=== PATIENT | male | born 1950 | race Caucasian/White ===

== ENCOUNTER 2023-04-19 16:35 | Emergency (ER) | payer OTHER ==
--- OUTSIDE RECORDS SUMMARY | 2023-04-19 16:55 | XMS REPORT | Continuity of Care Document ---
:1950 Author Organization [facility] t Address [address] [place] [address] Care Team Providers Name Role Phone Jazmín Calle DOosh Primary Care Physician [phone] DANILO SIDHU Attending Clinician Unavailable Rafael Gutierrez MA Attending Clinician Unavailable Kalpana HOBSON, Allan Burger Attending Clinician Marcela Marcus Attending Clinician Libra Bhakta MD Attending Clinician Clemente Shaffer MD Attending Clinician John Claros MA Attending Clinician Unavailable Gwen Miller Attending Clinician Unavailable Basia HOBSON, [facility] Attending Clinician Naldo Hidalgo MD Attending Clinician AILYN HIDALGO THE Attending Clinician Unavailable Kim Leyva MD Attending Clinician Cristi Castano MD Attending Clinician Sedrick Trivedi MD Attending Clinician Lori HOBSON, Baldev Attending Clinician Cecelia HOBSON, Kiley Attending Clinician Vilma HOBSON, Gina Truong Attending Clinician Lorri HOBSON, Michael Meyers Attending Clinician Leo HOBSON, Jona Robertson Attending Clinician [phone] Margarita HOBSON, Ramirez Terry Attending Clinician [phone] Phil HOBSON, Sayra Freire Attending Clinician Chad Blackmon Attending Clinician ELAINE LORENZO Attending Clinician Unavailable RUFINO MALIK Attending Clinician Unavailable Den Mello Attending Clinician Unavailable ARNOLD BARROW Attending Clinician Unavailable Valdemar HOBSON, James Johnson Attending Clinician Soto Kim DO Attending Clinician Mike HOBSON, James Delarosa Attending Clinician MARCELA SENA APRN Attending Clinician Unavailable CLEMENTE SHAFFER M.D. Attending Clinician Unavailable LYNNETTE GOMEZ Attending Clinician Unavailable PRATEEK RAO Attending Clinician Unavailable SLADE MENJIVAR M.D. Attending Clinician Unavailable PAUL GREWAL M.D. Attending Clinician Unavailable JONA LANDRY Admitting Clinician Unavailable LIBRA BHAKTA Admitting Clinician Unavailable MD MARCELA MARCUS Admitting Clinician Unavailable NALDO HIDALGO Admitting Clinician Unavailable KIM LEYVA Admitting Clinician Unavailable MD BALDEV KRUSE Admitting Clinician Unavailable GINA ESPARZA Admitting Clinician Unavailable CLEMENTE SHAFFER Admitting Clinician Unavailable MD SAYRA VILLARREAL Admitting Clinician Unavailable Den Mello Admitting Clinician Unavailable SOTO KIM Admitting Clinician Unavailable LYNNETTE GOMEZ Admitting Clinician Unavailable Payers Payer Name Policy Type Policy Number Effective Date Expiration Date S ource Problems Condition Condition Condition Status Onset Resolution Last Treating Co mments Source Name Details Category Date Date Treatment Clinician Date Anxiety Anxiety Disease Active Methodi 04-02 st 00:00: Hospita 00 l Class 1 Class 1 Disease Active Methodi obesity obesity 04-02 00:00: Hospita 00 l Decreased Decreased Disease Active Met hodi lipoprotei lipoprotei 04-02 n n 00:00: Hospita measuremen measuremen 00 l t t Hypotensio Hypotensio Disease Active M ethodi n n 04-02 st 00:00: Hospita 00 l Nonalcohol Nonalcohol Disease Active M ethodi ic fatty ic fatty 04-02 liver liver 00:00: Hospita 00 l Acute and Acute and Disease Active Met hodi subacute subacute 04-02 hepatic hepatic 00:00: Hospita failure failure 00 l without without coma coma Osteoarthr Osteoarthr Disease Active M ethodi itis of itis of 04-02 left knee left knee 00:00: Hosp layla 00 l Senile Senile Disease Active Methodi angioma angioma 04-02 00:00: Hospita 00 l Senile Senile Disease Active Methodi hyperkerat hyperkerat 04-02 osis osis 00:00: Hospita 00 l Primary Primary Disease Active Methodi osteoarthr osteoarthr 04-02 itis of itis of 00:00: Hospita both knees both knees 00 l Osteoarthr Osteoarthr Disease Active M ethodi itis itis 04-02 00:00: Hospita 00 l History of History of Disease Active M ethodi total knee total knee 04-02 replacemen replacemen 00:00: Ho spita t t 00 l Ascites Ascites Disease Active Methodi 03-29 st 00:00: Hospita 00 l Bilateral Bilateral Disease Active Met hodi lower lower 03-22 extremity extremity 00:00: Hosp layla edema edema 00 l Dyspnea on Dyspnea on Disease Active M ethodi exertion exertion 03-22 st 00:00: Hospita 00 l Encephalop Encephalop Disease Active M ethodi athy athy 03-10 st 00:00: Hospita 00 l Hypoalbumi Hypoalbumi Disease Active M ethodi nemia nemia 3-27 st 00:00: Hospita 00 l Venous Venous Disease Active Methodi insufficie insufficie 2-10 st ncy ncy 00:00: Hospita 00 l Infection Infection Disease Active Met hodi of total of total 1-10 st right knee right knee 00:00: Ho spita replacemen replacemen 00 l t t Esophageal Esophageal Disease Active 2021-11 M ethodi varices varices 0-17 st 00:00: Hospita 00 l Hyperammon Hyperammon Disease Active 2021-11 M ethodi emia emia 0-17 st 00:00: Hospita 00 l Hypothyroi Hypothyroi Disease Active 2021-11 M ethodi dism dism 0-17 st 00:00: Hospita 00 l Jaundice Jaundice Disease Active 2021-11 Metho di 0-17 st 00:00: Hospita 00 l Liver Liver Disease Active 2021-11 Methodi cirrhosis cirrhosis 0-17 st secondary secondary 00:00: Hosp layla to GREGORY to GREGORY 00 l Confusion Confusion Disease Active 2021-11 Met hodi 0-17 st 00:00: Hospita 00 l Urinary Urinary Disease Active Methodi tract tract 9-19 st infection infection 00:00: Hosp layla without without 00 l hematuria, hematuria, site site unspecifie unspecifie d d Prosthetic Prosthetic Disease Active M ethodi joint joint 6-28 st infection, infection, 00:00: Ho spita sequela sequela 00 l Prosthetic Prosthetic Disease Active M ethodi joint joint 6-27 st infection infection 00:00: Hosp layla 00 l Infection Infection Disease Active Met hodi of right of right 6-25 st knee knee 00:00: Hospita 00 l Confusion Confusion Disease Active Met hodi 6-14 st 00:00: Hospita 00 l Infection Infection Disease Active Met hodi and and 6-02 st inflammato inflammato 00:00: Ho spita ry ry 00 l reaction reaction due to due to internal internal right knee right knee prosthesis prosthesis , , subsequent subsequent encounter encounter OTHER OTHER Diagnosis Active 2022-04-20 Mem oria Active 04-20 09:49:00 l 04/20/2022 00:00: Hunter [place] LIVER LIVER Diagnosis Active 2022-04-16 Mem oria CIRRHOSIS CIRRHOSIS 04-08 10:58:00 l SECOND SECOND 00:00: David GREGORY - GREGORY - 00 K75.81 / D K75.81 / D Active 04/08/2022 [place] ALTERED ALTERED Diagnosis Active 2022-02-24 Memoria MENTAL MENTAL 3-27 00:54:00 l STATUS STATUS 00:00: David Active 00 02/15/2022 [facility], [place] Acute Acute Disease Active 2020-11 Methodi hepatic hepatic - st encephalop encephalop 00:00: Ho spita athy athy 00 l ACUTE ACUTE Diagnosis Active 2021-08-21 Mem oria HEPATIC HEPATIC 08-20 12:34:00 l ENCEPHALOP ENCEPHALOP 07:00: He rmann ATHY ATHY 00 Active 08/20/2021 [facility] Hepatic Hepatic Disease Active Methodi encephalop encephalop 08-20 st athy athy 00:00: Hospita 00 l K76.0 K76.0 Diagnosis Active 2019-112020-12-13 Mem oria Active 12-23 15:18:00 l 10/22/2020 00:00: Hunter martinez [place] K76.0 - K76.0 - Diagnosis Active 2019-112020-10-23 Memoria FATTY FATTY 12-16 07:35:00 l (CHANGE (CHANGE 00:01: David OF) LIVER, OF) LIVER, 00 NOT E G NOT E G Active 10/16/2020 [facility] [place] S/P S/P Disease Active 2019-11 Methodi revision revision -20 st of total of total 00:00: Hospit a knee, knee, 00 l right right DEGENERATI Diagnosis Active 2020-01-09 Memoria VE DEGENERATI 12-20 08:15:00 l ARTHRITIS, VE 00:00: Hunter martinez LEFT KNEE ARTHRITIS, 00 LEFT KNEE Active 12/20/2019 [facility] David DEGENERATI DEGENERAT Diagnosis Active 2018-112019-10-27 Memoria VE YONY 0- 22:27:00 l ARTHRITIS, ARTHRITIS, 00:00: He rmjenniffer RIGHT KNEE RIGHT KNEE 00 Active 09/21/2019 [facility] K72.90 K72.90 Diagnosis Active 2018-112019-09-21 Fl moria Active 10:54:00 l 09/18/2019 00:00: Hunter martinez [place] K72.90 - K72.90 - Diagnosis Active 2018-112020-01-05 Memoria HEPATIC HEPATIC 0- 10:35:00 l FAILURE, FAILURE, 00:01: Hunter martinez UNSPECIFIE UNSPECIFIE 00 D W D W Active 09/15/2019 [facility] [place] History of History Problem Active 2018-112019-11-06 Memoria urinary of urinary 0 23:59:39 l tract tract 00:00: David infection infection 00 (situation (situation ) ) Active 09/12/2019 Problem 11/06/2019 [facility] Hepatic Hepatic Disease Active 2018-[address] athy athy 00:00: Hospita 00 l Acute Acute Disease Active Methodi nonintract nonintract 07-23 able able 00:00: Hospita headache headache 00 l Sepsis Sepsis Disease Active 2017-[address] 00:00: Hospita 00 l Altered Altered Disease Active Methodi mental mental 08-21 status status 00:00: Hospita 00 l Diarrhea Diarrhea Disease Active Metho di 05-25 st 00:00: Hospita 00 l Hypogonadi Hypogonadi Disease Active 2016-11 M ethodi sm sm 12-17 st 00:00: Hospita 00 l Bilateral Bilateral Disease Active Met hodi primary primary 07-30 osteoarthr osteoarthr 00:00: Ho spita itis of itis of 00 l knee knee GERD GERD Disease Active Methodi (gastroeso (gastroeso 07-30 phageal phageal 00:00: Hospita reflux reflux 00 l disease) disease) Status Status Disease Active Methodi post post 2 gastric gastric 00:00: Hospita bypass for bypass for 00 l obesity obesity Incisional Incisional Disease Active M ethodi hernia hernia 12-14 st 00:00: Hospita 00 l Morbid Morbid Disease Active Methodi obesity obesity 12-24 st 00:00: Hospita 00 l Abdominal Abdominal Disease Active Met hodi hernia hernia 12-14 st 00:00: Hospita 00 l History of History of Problem Resolve [facility] fatty fatty d Physici infiltrati infiltrati an s on of on of liver liver History of History of Problem Resolve [facility] morbid morbid d Physici obesity obesity ans Status Status Problem Active UT post total post total Ph ysici right knee right knee an s replacemen replacemen t using t using cement cement Bilateral Bilateral Problem Active UT knee pain knee pain Phys ici ans Status Status Problem Active UT post total post total Ph ysici left knee left knee ans replacemen replacemen t using t using cement cement Primary Primary Problem Active UT osteoarthr osteoarthr Ph ysici itis of itis of ans both knees both knees Elevated Elevated Problem Resolve 2022-08-10 Memoria liver liver d 02:58:59 l enzymes enzymes David level level (finding) (finding) Resolved Problem 08/10/2022 [facility] [place] [place] INFECTION INFECTION Diagnosis Active 2022-08-10 Memoria Active 13:10:[address] [facility] Body mass Body mass Problem Active 2022-06-13 Memoria index 40+ index 40+ 22:00:26 l - severely - severely He rmann obese obese (finding) (finding) Active Problem 06/13/2022 [facility] [place] [place] Steatosis Steatosis Problem Active 2020-09-02 Memoria of liver of liver 23:09:17 l (disorder) (disorder) He rmann Active Problem 09/02/2020 [facility] [place] Disease of Disease Problem Active 2022-08-10 Memoria vein of vein 02:58:59 l (disorder) (disorder) He rmann Active Problem 08/10/2022 [facility] [place] [place] History of History Problem Active 2022-08-10 Memoria operative of 02:58:59 l procedure operative Herm jenniffer on knee procedure (situation on knee ) (situation ) Active Problem 08/10/2022 [facility] [place] [place] Septal Septal Problem Active 2022-08-10 Eusebio brandon fibrosis fibrosis 02:58:59 l of liver of liver Hunter n (disorder) (disorder) Active Problem 08/10/2022 [facility] [place],[facility], [place] Edema of Edema of Problem Active 2020-09-02 Memoria lower lower 23:09:17 l extremity extremity Herm jenniffer (finding) (finding) Active Problem 09/02/2020 [facility] Cirrhosis Cirrhosis Problem Active 2022-08-10 Memoria of liver of liver 02:58:59 l (disorder) (disorder) He rmann Active Problem 08/10/2022 [facility], [place] ACUTE AND ACUTE AND Diagnosis Active 2021-08-21 Memoria SUBACUTE SUBACUTE 07:39:00 l HEPATIC HEPATIC David FAILURE FAILURE WITHOUT WITHOUT COMA COMA Active [facility] ACUTE AND ACUTE AND Diagnosis Active 2021-08-21 Memoria SUBACUTE SUBACUTE 12:34:00 l HEPATIC HEPATIC [place] FAILURE FAILURE WITHO WITHO Active [facility] NONALCOHOL NONALCOHO Diagnosis Active 2022-04-16 Memoria IC LIC 10:58:00 l STEATOHEPA STEATOHEPA He rmjenniffer YAP (GREGORY) (GREGORY) Active [facility] Small Small Problem Resolve 2022-08-10 2022-08-10 Memoria bowel bowel d 12-14 02:58:59 02:58:59 l obstructio obstructio 00:00: He rmjenniffer n n 00 (disorder) (disorder) Resolved 12/14/2010 Problem 08/10/2022 [facility] [place] [place] History of Past Illness Condition Condition Condition Status Onset Resolution Last Treating Co mments Source Name Details Category Date Date Treatment Clinician Date Candidiasi Candidias Problem 2022-08-01 2022-08-01 Memoria s of skin is of skin 07-29 04:36:12 04:36:12 l and nail and nail 14:32: Hunter n 07/29/2022 00 08/01/2022 [facility] Urinary Urinary Problem 2021-2022-08-01 2022-08-01 Memoria tract tract 07-29 04:36:12 04:36:12 l infection, infection, 13:48: He rmann site not site not 00 specified specified 07/29/2022 08/01/2022 [facility] Unspecifie Unspecifi Problem 2022-08-01 2022-08-01 Memoria d symptoms ed 07-29 04:36:12 04:36:12 l and signs symptoms 13:48: Mariajose nn involving and signs 00 the involving genitourin the shanell system genitourin shanell system 07/29/2022 [facility] Dysuria Dysuria Problem 2022-08-01 2022-08-01 Memoria 07/29/202207-29 04:36:12 04:36:12 l 08/01/2022 13:48: Hunter n 00 [facility] Other Other Problem 2022-07-20 2022-07-20 M emoria disorders disorders 07-18 02:40:51 02:40:51 l of of 03:07: David plasma-pro plasma-pro 00 tein tein metabolism metabolism , not , not elsewhere elsewhere classified classified 07/18/2022 07/20/2022 [facility] Presence Presence Problem 2022-07-20 2022-07-20 Memoria of of 07-17 02:40:51 02:40:51 l artificial artificial 16:08: He rmann knee knee 00 joint, joint, bilateral bilateral 07/17/2022 07/20/2022 [facility] Infection Problem 2022-07-20 2022-07-20 Memoria and Infection 07-17 02:40:51 02:40:51 l inflammato and 16:07: Hunter n ry inflammato 00 reaction ry due to reaction internal due to right knee internal prosthesis right knee , initial prosthesis encounter , initial encounter 07/17/2022 [facility] Hepatic Hepatic Problem 2022-07-20 2022-07-20 Memoria fibrosis, fibrosis, 07-17 02:40:51 02:40:51 l unspecifie unspecifie 15:45: He rmann d d 00 07/17/2022 [facility] Nonalcohol Nonalcoho Problem 2022-07-20 2022-07-20 Memoria ic lic 07-17 02:40:51 02:40:51 l steatohepa steatohepa 15:44: He philly yap titsheridan 00 (GREGORY) (GREGORY) 07/17/2022 [facility] Disorder Disorder Problem 2022-07-20 2022-07-20 Memoria of urea of urea 07-17 02:40:51 02:40:51 l cycle cycle 15:44: David metabolism metabolism 00 , , unspecifie unspecifie d d 07/17/2022 07/20/2022 [facility] Bariatric Bariatric Problem 2022-07-20 2022-07-20 Memoria surgery surgery 07-17 02:40:51 02:40:51 l status status 15:44: [place] 07/17/2022 00 07/20/2022 [facility] Infection Infection Problem 2022-04-22 2022-04-22 Memoria and and 04-20 21:30:33 21:30:33 l inflammato inflammato 14:45: He rmjenniffer ry ry 00 reaction reaction due to due to other other internal internal joint joint prosthesis prosthesis , initial , initial encounter encounter 04/20/2022 04/22/2022 [facility] Nutritiona Nutrition Problem 2022-02-23 2022-02-23 Memoria l anemia, al anemia, 02-20 03:06:04 03:06:04 l unspecifie unspecifie 15:27: He rmann d d 00 02/20/2022 02/23/2022 [facility] Hypoglycem Hypoglyce Problem 2022-02-23 2022-02-23 Memoria ia, stefany, 02-20 03:06:04 03:06:04 l unspecifie unspecifie 15:26: He rmann d d 00 02/20/2022 02/23/2022 [facility] Localized Localized Problem 2022-02-23 2022-02-23 Memoria edema edema 02-20 03:06:04 03:06:04 l 02/20/2022 15:14: Hunter n 02/23/2022 00 [facility] Venous Venous Problem 2022-02-09 2022-02-09 Memoria insufficie insufficie 02-06 00:15:43 00:15:43 l ncy ncy 14:24: David (chronic) (chronic) 00 (periphera (periphera l) l) 02/06/2022 02/09/2022 [facility] Encounter Encounter Problem 2022-02-09 2022-02-09 Memoria for for 02-06 00:15:43 00:15:43 l screening screening 14:23: Herm jenniffer for for 00 malignant malignant neoplasm neoplasm of colon of colon 02/06/2022 02/09/2022 [facility] Other Other Problem 2022-02-09 2022-02-09 M emoria seborrheic seborrheic 02-06 00:15:43 00:15:43 l keratosis keratosis 14:23: Emre jenniffer 02/06/2022 00 [facility] Group Hemangioma Hemangiom Problem 2022-02-09 2022-02-09 Memoria of skin a of skin 02-06 00:15:43 00:15:43 l and and 14:23: David subcutaneo subcutaneo 00 us tissue us tissue 02/06/2022 02/09/2022 [facility] Body mass Body mass Problem 2022-02-09 2022-02-09 Memoria index index 02-06 00:15:43 00:15:43 l (BMI) (BMI) 14:23: David 40.0-44.9, 40.0-44.9, 00 adult adult 02/06/2022 02/09/2022 [facility] Hypothyroi Hypothyro Problem 2022-02-09 2022-02-09 Memoria dism, idism, 02-06 00:15:43 00:15:43 l unspecifie unspecifie 14:23: Ash fraga d d 00 02/06/2022 02/09/2022 [facility] Abnormal Abnormal Problem 2022-02-09 2022-02-09 Memoria levels of levels of 02-06 00:15:43 00:15:43 l other other 14:23: David serum serum 00 enzymes enzymes 02/06/2022 02/09/2022 [facility] Encounter Problem 2022-02-09 2022-02-09 Memoria for Encounter 02-06 00:15:43 00:15:43 l general for 14:22: [place] adult general 00 medical adult examinatio medical n without examinatio abnormal n without findings abnormal findings 02/06/2022 2 [facility] Hepatic Hepatic Problem 2020-112021-11-14 2021-11-14 Memoria failure, failure, 01-12 01:46:06 01:46:06 l unspecifie unspecifie 15:34: He rmann d without d without 00 coma coma 11/11/2021 1 [facility] Encounter Encounter Problem 2019-112020-10-03 2020-10-03 Memoria for for 11-30 00:49:10 00:49:10 l immunizati immunizati 18:00: He rmann on on 09/30/2020 0 [facility] Allergies, Adverse Reactions, Alerts Allergy Allergy Status Severity Reaction(s) Onset Inactive Treating Comm ents Source Name Type Date Date Clinician No Known DA Active [facility] codeine< codeine< Active Critical Eusebio brandon sup>1</s sup>1</s 3-16 l up> up> 05:00: David 00 Family History Family Member Diagnosis Comments Start Date Stop Date Source Mother Family history of [facility] Alzheimer's disease of other onset Natural brother Diabetes [facility] Natural father [facility] Maternal grandfather No Known Problems [facility] Maternal grandmother No Known Problems [facility] Natural mother Alzheimer's [facility] disease Paternal grandfather No Known Problems [facility] Paternal grandmother No Known Problems [facility] Social History Social Habit Start Date Stop Date Quantity Comments Source Gender identity [facility] Sexual orientation [facility] History of Social 2023-04-12 2023-04-[address] function 00:00:00 00:00:00 Hospital Alcohol intake 2023-04-03 2023-04-03 Ex-drinker [facility] 00:00:00 00:00:00 (finding) Hospital Tobacco use and 2020-10-09 2020-10-09 Smokeless [facility] exposure 00:00:00 00:00:00 tobacco non-user Hospital Social History 2019-12-22 2019-12-22 [facility] Patricia ferreira 14:52:24 14:52:24 Sex [birth year] [facility] 00:[facility] 00:[facility]:00 Hospital Smoking Status Start Date Stop Date Source Never smoked tobacco [facility] Medications Ordered Filled Start Stop Current Ordering Indication Dosage Frequency Signature Comments Components Source Medication Medication Date Date Medication? Clinician (SIG) Name Name levothyroxi 0 Yes 50ug QD Take 1 Meth natasha ne 5-22 tablet (50 st (SYNTHROID) 18:10: mcg total) Hospita 50 mcg 08 by mouth l tablet daily. levothyroxi Yes 50ug QD Take 50 Met hodi ne 3-[address] (SYNTHROID) 17:36: mouth Hospi ta 50 mcg 41 daily. l tablet riFAXimin 2022- No 550mg Q.5D Take 1 Meth natasha (XIFAXAN) -02 22-[address] 550 mg 15:41: 00:00 (550 mg Hospita tablet 04 :00 total) by l mouth 2 (two) times a day. Pt has been taking it daily only lactulose 2022-2022- No 20g QD Take 30 mL M ethodi 20 gram/30 01-23-04 ([address] mL solution 15:41: 00:00 total) by Hospita 04 :00 mouth l daily. riFAXimin 2022- No 550mg Q.5D Take 1 Meth natasha (XIFAXAN) -02 22-[address] 550 mg 15:41: 00:00 (550 mg Hospita tablet 04 :00 total) by l mouth 2 (two) times a day. Pt has been taking it daily only lactulose 2022-2022- No 20g QD Take 30 mL M ethodi 20 gram/30 01-23-04 ([address] mL solution 15:41: 00:00 total) by Hospita 04 :00 mouth l daily. ondansetron 0 Yes 4mg Q8H Take 1 Meth natasha ODT 3-04 tablet (4 st (ZOFRAN-ODT 00:00: mg total) H ospita ) 4 MG 00 by mouth l disintegrat every 8 ing tablet (eight) hours as needed for nausea or vomiting. lactulose 2023-0 Yes 20g Q6H Take 30 mL Me thodi 20 gram/30 3-04 ([address] mL solution 00:00: total) by H ospita 00 mouth l every 6 (six) hours. Plz titrate to atleast 2-3 BM per day riFAXimin 2023-0 Yes 550mg Q.5D Take 1 Metho di (XIFAXAN) 3-[address] 550 mg 00:00: (550 mg Hospita tablet 00 total) by l mouth 2 (two) times a day. Pt has been taking it daily only ondansetron 2023-0 Yes 4mg Q8H Take 1 Meth natasha ODT 3-04 tablet (4 st (ZOFRAN-ODT 00:00: mg total) H ospita ) 4 MG 00 by mouth l disintegrat every 8 ing tablet (eight) hours as needed for nausea or vomiting. lactulose 2023-0 Yes 20g Q6H Take 30 mL Me thodi 20 gram/30 3-04 ([address] mL solution 00:00: total) by H ospita 00 mouth l every 6 (six) hours. Plz titrate to atleast 2-3 BM per day riFAXimin 2023-0 Yes 550mg Q.5D Take 1 Metho di (XIFAXAN) 3-[address] 550 mg 00:00: (550 mg Hospita tablet 00 total) by l mouth 2 (two) times a day. Pt has been taking it daily only famotidine 2023-0 2023- No 20mg QD Take 1 Meth natasha (Pepcid) 20 3-04 03-19 tablet (20 s t MG tablet 00:00: 04:59 mg total) Ho spita 00 :00 by mouth l daily for 14 days. famotidine 2023-0 2023- No 20mg QD Take 1 Meth natasha (Pepcid) 20 3-04 03-19 tablet (20 s t MG tablet 00:00: 04:59 mg total) Ho spita 00 :00 by mouth l daily for 14 days. lactulose 2022-0 Yes 20g QD Take 30 mL Me thodi 20 gram/30 9-22 ([address] mL solution 16:27: total) by H ospita 12 mouth l daily. lactulose 2022-0 Yes 20g QD Take 30 mL Me thodi 20 gram/30 9-22 ([address] mL solution 16:27: total) by H ospita 12 mouth l daily. lactulose 2022-0 Yes 20g QD Take 30 mL Me thodi 20 gram/30 9-22 ([address] mL solution 16:27: total) by H ospita 12 mouth l daily. lactulose 2022-0 Yes 20g QD Take 30 mL Me thodi 20 gram/30 9-22 ([address] mL solution 16:27: total) by H ospita 12 mouth l daily. minocycline 2021-0 2021- No Take by Me thodi HCl 08-[address] (MINOCIN 16:27: 00:00 Hospita ORAL) 12 :00 l minocycline 2022-0 2021- No Take by Me thodi HCl 08-[address] (MINOCIN 16:27: 00:00 Hospita ORAL) 12 :00 l minocycline 2022-0 2021- No Take by Me thodi HCl 08-[address] (MINOCIN 16:27: 00:00 Hospita ORAL) 12 :00 l minocycline 2022-0 2021- No Take by Me thodi HCl 08-[address] (MINOCIN 16:27: 00:00 Hospita ORAL) 12 :00 l minocycline 2022-0 2- No Take by Me thodi HCl 08-[address] (MINOCIN 16:27: 00:00 Hospita ORAL) 12 :00 l minocycline 2022-0 2- No Take by Me thodi HCl 08-[address] (MINOCIN 16:27: 00:00 Hospita ORAL) 12 :00 l levothyroxi 2021-0 Yes 50ug QD Take 50 Met hodi ne 9-[address] (SYNTHROID) 16:27: mouth Hospi ta 50 mcg 03 daily. l tablet riFAXimin 2021-0 Yes 550mg Q.5D Take 1 Metho di (XIFAXAN) 9-[address] 550 mg 16:27: (550 mg Hospita tablet 03 total) by l mouth 2 (two) times a day. Pt has been taking it daily only levothyroxi 2022-0 Yes 50ug QD Take 50 Met hodi ne 9-[address] (SYNTHROID) 16:27: mouth Hospi ta 50 mcg 03 daily. l tablet riFAXimin 2022-0 Yes 550mg Q.5D Take 1 Metho di (XIFAXAN) 9-[address] 550 mg 16:27: (550 mg [facility] tablet 03 total) by l mouth 2 (two) times a day. Pt has been taking it daily only levothyroxi 2022-0 Yes 50ug QD Take 50 Met hodi ne 9-[address] (SYNTHROID) 16:27: mouth Hospi ta 50 mcg 03 daily. l tablet riFAXimin 2022-0 Yes 550mg Q.5D Take 1 Metho di (XIFAXAN) 9-[address] 550 mg 16:27: (550 mg [facility]ospita tablet 03 total) by l mouth 2 (two) times a day. Pt has been taking it daily only levothyroxi 2022-0 Yes 50ug QD Take 50 Met [facility]odi ne 9-[address] (SYNTHROID) 16:27: mouth Hospi ta 50 mcg 03 daily. l tablet riFAXimin 2022-0 Yes 550mg Q.5D Take 1 Metho di (XIFAXAN) 9-[address] 550 mg 16:27: (550 mg [facility]osp[facility] tablet 03 total) by l mouth 2 (two) times a day. Pt has been taking it daily only minocycline 2022-0 Yes 100mg QD Take 1 Met [facility]odi (DYNACIN) 9-[address] 100 MG 00:00: (100 mg [facility]osp[facility] tablet 00 total) by l mouth daily. minocycline 2022-0 Yes 100mg QD Take 1 Met [facility] (DYNACIN) 9-[address] 100 MG 00:00: (100 mg [facility]osp[facility] tablet 00 total) by l mouth daily. minocycline 2022-0 Yes 100mg QD Take 1 Met [facility] (DYNACIN) 9-[address] 100 MG 00:00: (100 mg [facility]osp[facility] tablet 00 total) by l mouth daily. minocycline 2022-0 Yes 100mg QD Take 1 Met [facility] (DYNACIN) 9-[address] 100 MG 00:00: (100 mg [facility]osp[facility] tablet 00 total) by l mouth daily. minocycline 2022- No 100mg QD Take 1 Me [facility] (DYNACIN) 08-[address] 100 MG 00:00: 00:00 (100 mg [facility]osp[facility] tablet 00 :00 total) by l mouth daily. minocycline 2022- No 100mg QD Take 1 Me [facility] (DYNACIN) 08-[address] 100 MG 00:00: 00:00 (100 mg [facility]ospita tablet 00 :00 total) by l mouth daily. nystatin Yes 1 appl, Memori a topical 07-29 TOP, PRN, l 100,000 14:33: PRN apply Mariajose nn units/g 00 to cream affected areas, Apply twice a day as needed., X 14 day, # 30 gm, 1 Refill(s), Pharmacy: [facility], 177.8, cm, 07/29/22 8:41:00 CDT, Height, 117.727, kg, 07/29/22 8:41:00 CDT, Weight ciprofloxac Yes 500 mg = 1 Memoria in 500 mg 07-29 tab, PO, l oral tablet 14:21: Q12H, X 7 H erm day, # 14 tab, 0 Refill(s), Pharmacy: [facility], 177.8, cm, 07/29/22 8:41:00 CDT, Height, 117.727, kg, 07/29/22 8:41:00 CDT, Weight cyanocobala 2021- No 1000ug QD Take 1,000 [facility] min 7-07 07-[address] (VITAMIN 22:30: 00:00 mouth [facility]ospita B-12) 1000 24 :00 daily. l MCG tablet cyanocobala 2021-0 2021- No 1000ug QD Take 1,000 [facility] min 7-07 07-[address] (VITAMIN 22:30: 00:00 mouth [facility]osp[facility] B-12) 1000 24 :00 daily. l MCG tablet cyanocobala 2021-0 2021- No 1000ug QD Take 1,000 [facility] min 7-07 07-[address] (VITAMIN 22:30: 00:00 mouth [facility]osp[facility] B-12) 1000 24 :00 daily. l MCG tablet cyanocobala 2022-0 2022- No 1000ug QD Take 1,000 [facility] min 7-07 07-[address] (VITAMIN 22:30: 00:00 mouth [facility]osp[facility] B-12) 1000 24 :00 daily. l MCG tablet cyanocobala 2022-0 2022- No 1000ug QD Take 1,000 [facility] min 7-07 07-[address] (VITAMIN 22:30: 00:00 mouth [facility]osp[facility] B-12) 1000 24 :00 daily. l MCG tablet cyanocobala 2022-0 2022- No 1000ug QD Take 1,000 [facility] min 7-07 07-[address] (VITAMIN 22:30: 00:00 mouth [facility]osp[facility] B-12) 1000 24 :00 daily. l MCG tablet cyanocobala 2022-0 2022- No 1000ug QD Take 1,000 [facility] min 7-07 07-[address] (VITAMIN 22:30: 00:00 mouth [facility]osp[facility] B-12) 1000 24 :00 daily. l MCG tablet levothyroxi 2021-0 Yes 50ug QD Take 50 Met hodi ne 7-[address] (SYNTHROID) 22:30: mouth Hospi ta 50 mcg 20 daily. l tablet riFAXimin 2-0 Yes 550mg Q.5D Take 550 Met [facility]odi (XIFAXAN) 7-[address] 550 mg 22:30: mouth 2 [facility]ospita tablet 20 (two) l times a day. ondansetron 2-0 Yes 4mg Q8H Take 1 Meth natasha ODT 7-07 tablet (4 st (ZOFRAN-ODT 00:00: mg total) H [facility]spita ) 4 MG 00 by mouth l disintegrat every 8 ing tablet (eight) hours as needed for nausea or vomiting for up to 20 doses. polyethylen 2022-0 Yes 17g Q24H Take 17 g M ethodi e glycol 7-[address] (MIRALAX) 00:00: daily as [facility]osp layla 17 gram 00 needed for l packet constipati on for up to 20 doses. ondansetron 2-0 Yes 4mg Q8H Take 1 Meth natasha ODT 7-07 tablet (4 st (ZOFRAN-ODT 00:00: mg total) H [facility]spita ) 4 MG 00 by mouth l disintegrat every 8 ing tablet (eight) hours as needed for nausea or vomiting for up to 20 doses. polyethylen 2022-0 Yes 17g Q24H Take 17 g M ethodi e glycol 7-[address] (MIRALAX) 00:00: daily as [facility]osp layla 17 gram 00 needed for l packet constipati on for up to 20 doses. ondansetron 2022-0 Yes 4mg Q8H Take 1 Meth natasha ODT 7-07 tablet (4 st (ZOFRAN-ODT 00:00: mg total) [facility] ) 4 MG 00 by mouth l disintegrat every 8 ing tablet (eight) hours as needed for nausea or vomiting for up to 20 doses. polyethylen 2022-0 Yes 17g Q24H Take 17 g M ethodi e glycol 7-[address] (MIRALAX) 00:00: daily as [facility]osp layla 17 gram 00 needed for l packet constipati on for up to 20 doses. ondansetron 2022-0 Yes 4mg Q8H Take 1 Meth natasha ODT 7-07 tablet (4 st (ZOFRAN-ODT 00:00: mg total) [facility] ) 4 MG 00 by mouth l disintegrat every 8 ing tablet (eight) hours as needed for nausea or vomiting for up to 20 doses. polyethylen 2022-0 Yes 17g Q24H Take 17 g M ethodi e glycol 7-[address] (MIRALAX) 00:00: daily as [facility]osp layla 17 gram 00 needed for l packet constipati on for up to 20 doses. ondansetron 2022-0 Yes 4mg Q8H Take 1 Meth natasha ODT 7-07 tablet (4 st (ZOFRAN-ODT 00:00: mg total) [facility] ) 4 MG 00 by mouth l disintegrat every 8 ing tablet (eight) hours as needed for nausea or vomiting for up to 20 doses. polyethylen 2022-0 Yes 17g Q24H Take 17 g M ethodi e glycol 7-[address] (MIRALAX) 00:00: daily as [facility]osp layla 17 gram 00 needed for l packet constipati on for up to 20 doses. aspirin 2022-0 2023- No 81mg Q.5D Take 1 [facility] (ECOTRIN) 05-28 tablet (81 st 81 MG 00:00: 04:59 mg total) [facility] 00 :00 by mouth 2 l coated (two) tablet times a day. aspirin 2-0 2023- No 81mg Q.5D Take 1 [facility] (ECOTRIN) 05-28 tablet (81 st 81 MG 00:00: 04:59 mg total) [facility] enteric 00 :00 by mouth 2 l coated (two) tablet times a day. aspirin 2021-0 2023- No 81mg Q.5D Take 1 [facility] (ECOTRIN) 05-28 tablet (81 st 81 MG 00:00: 04:59 mg total) [facility] enter[facility] 00 :00 by mouth 2 l coated (two) tablet times a day. aspirin 2021-0 2023- No 81mg Q.5D Take 1 [facility] (ECOTRIN) 05-28 tablet (81 st 81 MG 00:00: 04:59 mg total) [facility] enter[facility] 00 :00 by mouth 2 l coated (two) tablet times a day. aspirin 2021-0 3- No 81mg Q.5D Take 1 [facility] (ECOTRIN) 05-28 tablet (81 st 81 MG 00:00: 04:59 mg total) [facility] enteric 00 :00 by mouth 2 l coated (two) tablet times a day. aspirin 2021-0 3- No 81mg Q.5D Take 1 [facility] (ECOTRIN) 05-28 tablet (81 st 81 MG 00:00: 00:00 mg total) [facility] enter[facility] 00 :00 by mouth 2 l coated (two) tablet times a day. ondansetron 2021-0 2022- No 4mg Q8H Take 1 Met hodi ODT 05-28 tablet (4 st (ZOFRAN-ODT 00:00: 00:00 mg total) [facility]ospita ) 4 MG 00 :00 by mouth l disintegrat every 8 ing tablet (eight) hours as needed for nausea or vomiting for up to 20 doses. polyethylen 2021-0 2022- No 17g Q24H Take 17 g [facility] e glycol 05-[address] (MIRALAX) 00:00: 00:00 daily as [facility] 17 gram 00 :00 needed for l packet constipati on for up to 20 doses. aspirin 2022- No 81mg Q.5D Take 1 [facility] (ECOTRIN) 05-28-04 tablet (81 st 81 MG 00:00: 00:00 mg total) [facility] 00 :00 by mouth 2 l coated (two) tablet times a day. ondansetron 2022- No 4mg Q8H Take 1 Met hodi ODT 05-2804 tablet (4 st (ZOFRAN-ODT 00:00: 00:00 mg total) Hospita ) 4 MG 00 :00 by mouth l disintegrat every 8 ing tablet (eight) hours as needed for nausea or vomiting for up to 20 doses. polyethylen 2022- No 17g Q24H Take 17 g [facility] e glycol 05-[address] (MIRALAX) 00:00: 00:00 daily as [facility] 17 gram 00 :00 needed for l packet constipati on for up to 20 doses. acetaminoph 0 2021- No 650mg Q6H Take 2 [facility] en 05-28- tablets st (TYLENOL) 00:00: 04:59 (650 mg Hosp layla 325 MG 00 :00 total) by l tablet mouth every 6 (six) hours as needed for mild pain or fever for up to 30 days. acetaminoph 2021-0 2021- No 650mg Q6H Take 2 [facility] en 05-28- tablets st (TYLENOL) 00:00: 04:59 (650 mg [facility]osp layla 325 MG 00 :00 total) by l tablet mouth every 6 (six) hours as needed for mild pain or fever for up to 30 days. acetaminoph 2021-0 2022- No 650mg Q6H Take 2 [facility] en 05-28- tablets st (TYLENOL) 00:00: 04:59 (650 mg [facility]osp layla 325 MG 00 :00 total) by l tablet mouth every 6 (six) hours as needed for mild pain or fever for up to 30 days. acetaminoph 2021-0 2022- No 650mg Q6H Take 2 Me [facility] en 7-07 08-[address] (TYLENOL) 00:00: 04:59 (650 mg Hosp layla 325 MG 00 :00 total) by l tablet mouth every 6 (six) hours as needed for mild pain or fever for up to 30 days. acetaminoph 2021-0 2021- No 650mg Q6H Take 2 Me [facility] en 05-[address] (TYLENOL) 00:00: 04:59 (650 mg Hosp layla 325 MG 00 :00 total) by l tablet mouth every 6 (six) hours as needed for mild pain or fever for up to 30 days. acetaminoph 2021-0 2021- No 650mg Q6H Take 2 Me [facility] en 05-[address] (TYLENOL) 00:00: 04:59 (650 mg [facility]osp layla 325 MG 00 :00 total) by l tablet mouth every 6 (six) hours as needed for mild pain or fever for up to 30 days. acetaminoph 2021- No 650mg Q6H Take 2 [facility] en 05-[address] (TYLENOL) 00:00: 04:59 (650 mg [facility]osp layla 325 MG 00 :00 total) by l tablet mouth every 6 (six) hours as needed for mild pain or fever for up to 30 days. ertapenem 1 2021- No 1g Q24H Infuse 1 g [facility] g in sodium 05-[address] chloride 00:00: 04:59 venous Hospit a 0.9 % MBP 00 :00 catheter l 50 mL IVPB daily for 25 days. micafungin 2021- No 100mg Q24H Infuse 100 [facility] 100 mg in 05-[address] sodium 00:00: 04:59 venous [facility]osp[facility] chloride 00 :00 catheter l 0.9 % MBP daily for 100 mL IVPB 25 days. vancomycin/ 2021- No 1250mg Q12H Infuse 250 [facility] 0.9 % sod 05-28 mL (1,250 st chloride 00:00: 04:59 mg total) [facility] (vancomycin 00 :00 into a l in 0.9% venous sodium catheter chloride) every 12 1.25 (twelve) gram/250 mL hours for solution 25 days. ertapenem 1 2021-0 2- No 1g Q24H Infuse 1 g [facility] g in sodium 05-[address] chloride 00:00: 04:59 venous Hospit a 0.9 % MBP 00 :00 catheter l 50 mL IVPB daily for 25 days. micafungin 2021-0 2021- No 100mg Q24H Infuse 100 [facility] 100 mg in 05-28- mg into a st sodium 00:00: 04:59 venous [facility] chloride 00 :00 catheter l 0.9 % MBP daily for 100 mL IVPB 25 days. vancomycin/ 2021-0 2021- No 1250mg Q12H Infuse 250 [facility] 0.9 % sod 05-28- mL (1,250 st chloride 00:00: 04:59 mg total) [facility] (vancomycin 00 :00 into a l in 0.9% venous sodium catheter chloride) every 12 1.25 (twelve) gram/250 mL hours for solution 25 days. ertapenem 1 2021-2021- No 1g Q24H Infuse 1 g [facility] g in sodium 05-[address] chloride 00:00: 04:59 venous Hospit a 0.9 % MBP 00 :00 catheter l 50 mL IVPB daily for 25 days. micafungin 2021-2021- No 100mg Q24H Infuse 100 [facility] 100 mg in 05-[address] sodium 00:00: 04:59 venous [facility] chloride 00 :00 catheter l 0.9 % MBP daily for 100 mL IVPB 25 days. vancomycin/ 2021-0 2021- No 1250mg Q12H Infuse 250 [facility] 0.9 % sod 05-28- mL (1,250 st chloride 00:00: 04:59 mg total) [facility] (vancomycin 00 :00 into a l in 0.9% venous sodium catheter chloride) every 12 1.25 (twelve) gram/250 mL hours for solution 25 days. ertapenem 1 2021-2021- No 1g Q24H Infuse 1 g [facility] g in sodium 05-[address] chloride 00:00: 04:59 venous Hospit a 0.9 % MBP 00 :00 catheter l 50 mL IVPB daily for 25 days. micafungin 2021-0 2022- No 100mg Q24H Infuse 100 [facility] 100 mg in 05-28-[address] sodium 00:00: 04:59 venous [facility] chloride 00 :00 catheter l 0.9 % MBP daily for 100 mL IVPB 25 days. vancomycin/ 2021-0 2022- No 1250mg Q12H Infuse 250 [facility] 0.9 % sod 05-28-02 mL (1,250 st chloride 00:00: 04:59 mg total) [facility] (vancomycin 00 :00 into a l in 0.9% venous sodium catheter chloride) every 12 1.25 (twelve) gram/250 mL hours for solution 25 days. ertapenem 1 2021-0 2022- No 1g Q24H Infuse 1 g [facility] g in sodium 05-[address] chloride 00:00: 04:59 venous Hospit a 0.9 % MBP 00 :00 catheter l 50 mL IVPB daily for 25 days. micafungin 2021-0 2022- No 100mg Q24H Infuse 100 [facility] 100 mg in 05-28- mg into a st sodium 00:00: 04:59 venous [facility] chloride 00 :00 catheter l 0.9 % MBP daily for 100 mL IVPB 25 days. vancomycin/ 2021-0 2022- No 1250mg Q12H Infuse 250 [facility] 0.9 % sod 05-28- mL (1,250 st chloride 00:00: 04:59 mg total) [facility] (vancomycin 00 :00 into a l in 0.9% venous sodium catheter chloride) every 12 1.25 (twelve) gram/250 mL hours for solution 25 days. ertapenem 1 2021-0 2022- No 1g Q24H Infuse 1 g [facility] g in sodium 05-[address] chloride 00:00: 04:59 venous Hospit a 0.9 % MBP 00 :00 catheter l 50 mL IVPB daily for 25 days. micafungin 2022-0 2022- No 100mg Q24H Infuse 100 [facility] 100 mg in 05-28- mg into a st sodium 00:00: 04:59 venous [facility] chloride 00 :00 catheter l 0.9 % MBP daily for 100 mL IVPB 25 days. vancomycin/ 2021- No 1250mg Q12H Infuse 250 [facility] 0.9 % sod 05-28-02 mL (1,250 st chloride 00:00: 04:59 mg total) [facility] (vancomycin 00 :00 into a l in 0.9% venous sodium catheter chloride) every 12 1.25 (twelve) gram/250 mL hours for solution 25 days. ertapenem 1 2021- No 1g Q24H Infuse 1 g [facility] g in sodium 05-[address] chloride 00:00: 04:59 venous Hospit a 0.9 % MBP 00 :00 catheter l 50 mL IVPB daily for 25 days. micafungin 2021- No 100mg Q24H Infuse 100 [facility] 100 mg in 05-[address] sodium 00:00: 04:59 venous [facility] chloride 00 :00 catheter l 0.9 % MBP daily for 100 mL IVPB 25 days. vancomycin/ 2021- No 1250mg Q12H Infuse 250 [facility] 0.9 % sod 05-28- mL (1,250 st chloride 00:00: 04:59 mg total) [facility] (vancomycin 00 :00 into a l in 0.9% venous sodium catheter chloride) every 12 1.25 (twelve) gram/250 mL hours for solution 25 days. traMADoL 2021-2021- [place] [id number] 50mg Q4H Take 1 Metho di (ULTRAM) 50 05-28 tablet (50 s t mg tablet 00:00: 04:59 mg total) Ho spita 00 :00 by mouth l every 4 (four) hours as needed for moderate pain for up to 20 doses .acute pain. traMADoL 2021-0 2021- [place] [id number] 50mg Q4H Take 1 Metho di (ULTRAM) 50 05-28 tablet (50 s t mg tablet 00:00: 04:59 mg total) [facility] 00 :00 by mouth l every 4 (four) hours as needed for moderate pain for up to 20 doses .acute pain. traMADoL 2021- [place] [id number] 50mg Q4H Take 1 Metho di (ULTRAM) 50 7-07 07-14 tablet (50 s t mg tablet 00:00: 04:59 mg total) [facility] 00 :00 by mouth l every 4 (four) hours as needed for moderate pain for up to 20 doses .acute pain. traMADoL 2021- [place] [id number] 50mg Q4H Take 1 [facility]o di (ULTRAM) 50 7- 07-14 tablet (50 s t mg tablet 00:00: 04:59 mg total) [facility] 00 :00 by mouth l every 4 (four) hours as needed for moderate pain for up to 20 doses .acute pain. traMADoL 2021- No [id number] 50mg Q4H Take 1 [facility]o di (ULTRAM) 50 7- 07-14 tablet (50 s t mg tablet 00:00: 04:59 mg total) [facility] 00 :00 by mouth l every 4 (four) hours as needed for moderate pain for up to 20 doses .acute pain. traMADoL 2021- [place] [id number] 50mg Q4H Take 1 [facility]o di (ULTRAM) 50 05-28-14 tablet (50 s t mg tablet 00:00: 04:59 mg total) [facility] 00 :00 by mouth l every 4 (four) hours as needed for moderate pain for up to 20 doses .acute pain. traMADoL 2021- [place] [id number] 50mg Q4H Take 1 [facility]o di (ULTRAM) 50 7-14 tablet (50 s t mg tablet 00:00: 04:59 mg total) [facility] 00 :00 by mouth l every 4 (four) hours as needed for moderate pain for up to 20 doses .acute pain. lactulose 2021- No 60g Q.5D Take 60 g [facility] (CHRONULAC) 05-14-23 by mouth 2 s t 10 gram/15 18:38: 00:00 (two) Hospi ta mL solution 49 :00 times a l day. lactulose 0 2021- No 60g Q.5D Take 60 g [facility] (CHRONULAC) 05-14 06-23 by mouth 2 s t 10 gram/15 18:38: 00:00 (two) Hospi ta mL solution 49 :00 times a l day. lactulose 2022-0 2022- No 60g Q.5D Take 60 g [facility] (CHRONULAC) 6- 06-23 by mouth 2 s t 10 gram/15 18:38: 00:00 (two) [facility] ta mL solution 49 :00 times a l day. lactulose 2021-0 2021- No 60g Q.5D Take 60 g [facility] (CHRONULAC) 6-23 06-23 by mouth 2 s t 10 gram/15 18:38: 00:00 (two) [facility] ta mL solution 49 :00 times a l day. lactulose 0 2021- No 60g Q.5D Take 60 g [facility] (CHRONULAC) 6- 06-23 by mouth 2 s t 10 gram/15 18:38: 00:00 (two) [facility] ta mL solution 49 :00 times a l day. lactulose 0 2021- No 60g Q.5D Take 60 g [facility] (CHRONULAC) 6- 06-23 by mouth 2 s t 10 gram/15 18:38: 00:00 (two) [facility] ta mL solution 49 :00 times a l day. lactulose 2021-0 2021- No 60g Q.5D Take 60 g [facility] (CHRONULAC) 6- 06-23 by mouth 2 s t 10 gram/15 18:38: 00:00 (two) Hos[facility] ta mL solution 49 :00 times a l day. multivit,ca Yes 1{tbl} QD Take 1 [facility] lc,mins/iro 6-[address] n/folic 00:00: mouth [facility]osp[facility] (multivitam 00 daily. l in,tx-iron- minerals) 27-0.4 mg tablet tablet multivit,ca Yes 1{tbl} QD Take 1 [facility] lc,mins/iro 6-[address] n/folic 00:00: mouth [facility] (multivitam 00 daily. l in,tx-iron- minerals) 27-0.4 mg tablet tablet multivit,ca Yes 1{tbl} QD Take 1 [facility] lc,mins/iro 6-[address] n/folic 00:00: mouth [facility] (multivitam 00 daily. l in,tx-iron- minerals) 27-0.4 mg tablet tablet multivit,ca Yes 1{tbl} QD Take 1 [facility] lc,mins/iro 6-[address] n/folic 00:00: mouth [facility] (multivitam 00 daily. l in,tx-iron- minerals) 27-0.4 mg tablet tablet multivit,ca Yes 1{tbl} QD Take 1 [facility] lc,mins/iro 6-[address] n/folic 00:00: mouth [facility] (multivitam 00 daily. l in,tx-iron- minerals) 27-0.4 mg tablet tablet multivit,ca Yes 1{tbl} QD Take 1 [facility] lc,mins/iro 6-[address] n/folic 00:00: mouth [facility] (multivitam 00 daily. l in,tx-iron- minerals) 27-0.4 mg tablet tablet multivit,ca Yes 1{tbl} QD Take 1 [facility] lc,mins/iro 6-[address] n/folic 00:00: mouth [facility] (multivitam 00 daily. l in,tx-iron- minerals) 27-0.4 mg tablet tablet ertapenem 1 2021-0 2021- No 1g Q24H Infuse 1 g [facility] in sodium 05-[address] chloride 00:00: 00:00 venous [facility] a 0.9 % MBP 00 :00 catheter l 50 mL IVPB daily for 38 days. ertapenem 1 2021-0 2022- No 1g Q24H Infuse 1 g [facility] in sodium 05-[address] chloride 00:00: 00:00 venous [facility] a 0.9 % MBP 00 :00 catheter l 50 mL IVPB daily for 38 days. ertapenem 1 2021-0 2022- No 1g Q24H Infuse 1 g [facility] in sodium 05-[address] chloride 00:00: 00:00 venous [facility] a 0.9 % MBP 00 :00 catheter l 50 mL IVPB daily for 38 days. ertapenem 1 2021-0 2022- No 1g Q24H Infuse 1 g [facility] in sodium 05-[address] chloride 00:00: 00:00 venous [facility] a 0.9 % MBP 00 :00 catheter l 50 mL IVPB daily for 38 days. ertapenem 1 202- No 1g Q24H Infuse 1 g [facility] in sodium 05-[address] chloride 00:00: 00:00 venous [facility] a 0.9 % MBP 00 :00 catheter l 50 mL IVPB daily for 38 days. ertapenem 1 2021- No 1g Q24H Infuse 1 g [facility] g in sodium 05-[address] chloride 00:00: 00:00 venous [facility] a 0.9 % MBP 00 :00 catheter l 50 mL IVPB daily for 38 days. ertapenem 1 2021- No 1g Q24H Infuse 1 g [facility] in sodium 05-[address] chloride 00:00: 00:00 venous [facility] a 0.9 % MBP 00 :00 catheter l 50 mL IVPB daily for 38 days. B Yes 1{tbl} QD Take 1 [facility] complex-vit 6-[address] [facility] 00:00: mouth [facility]osp[facility] C-folic 00 nightly. l acid (FOLBEE PLUS 5 MG) 5 mg tablet per tablet Yes 1{tbl} QD Take 1 [facility] complex-vit 6-[address] [facility] 00:00: mouth [facility] C-folic 00 nightly. l acid (FOLBEE PLUS 5 MG) 5 mg tablet per tablet Yes 1{tbl} QD Take 1 [facility] complex-vit 6-[address] [facility] 00:00: mouth [facility] C-folic 00 nightly. l acid (FOLBEE PLUS 5 MG) 5 mg tablet per tablet B Yes 1{tbl} QD Take 1 [facility] complex-vit 6-[address] [facility] 00:00: mouth [facility] C-folic 00 nightly. l acid (FOLBEE PLUS 5 MG) 5 mg tablet per tablet B Yes 1{tbl} QD Take 1 [facility] complex-vit 6-[address] [facility] 00:00: mouth [facility] C-folic 00 nightly. l acid (FOLBEE PLUS 5 MG) 5 mg tablet per tablet B Yes 1{tbl} QD Take 1 [facility] complex-vit 6-[address] [facility] 00:00: mouth [facility] C-folic 00 nightly. l acid (FOLBEE PLUS 5 MG) 5 mg tablet per tablet B Yes 1{tbl} QD Take 1 [facility] complex-vit 6-[address] [facility] 00:00: mouth [facility] C-folic 00 nightly. l acid (FOLBEE PLUS 5 MG) 5 mg tablet per tablet aspirin 202- No 325mg Q.5D Take 1 [facility] (ECOTRIN) 05-13- tablet st 325 MG 00:00: 00:00 (325 mg [facility]osp[facility] enteric 00 :00 total) by l coated mouth 2 tablet (two) times a day. vancomycin 2021- No 1750mg Q12H Infuse 500 [facility] in 0.9% 05-13-07 mL (1,750 st sodium 00:00: 00:00 mg total) [facility] ta chloride 00 :00 into a l 1750 mg/500 venous mL 1,750 mg catheter IVPB every 12 (twelve) hours for 39 days. aspirin 2021- No 325mg Q.5D Take 1 [facility] (ECOTRIN) 05-13- tablet st 325 MG 00:00: 00:00 (325 mg [facility] enteric 00 :00 total) by l coated mouth 2 tablet (two) times a day. vancomycin 2021- No 1750mg Q12H Infuse 500 [facility] in 0.9% 05-13-07 mL (1,750 st sodium 00:00: 00:00 mg total) [facility] chloride 00 :00 into a l 1750 mg/500 venous mL 1,750 mg catheter IVPB every 12 (twelve) hours for 39 days. aspirin 2021- No 325mg Q.5D Take 1 [facility] (ECOTRIN) 05-13- tablet st 325 MG 00:00: 00:00 (325 mg [facility] enteric 00 :00 total) by l coated mouth 2 tablet (two) times a day. vancomycin 2021- No 1750mg Q12H Infuse 500 [facility] in 0.9% 05-13-07 mL (1,750 st sodium 00:00: 00:00 mg total) [facility] chloride 00 :00 into a l 1750 mg/500 venous mL 1,750 mg catheter IVPB every 12 (twelve) hours for 39 days. aspirin 2022-0 2022- No 325mg Q.5D Take 1 [facility] (ECOTRIN) 05-13- tablet st 325 MG 00:00: 00:00 (325 mg [facility] enteric 00 :00 total) by l coated mouth 2 tablet (two) times a day. vancomycin 2022-0 2022- No 1750mg Q12H Infuse 500 [facility] in 0.9% 05-13- mL (1,750 st sodium 00:00: 00:00 mg total) [facility] ta chloride 00 :00 into a l 1750 mg/500 venous mL 1,750 mg catheter IVPB every 12 (twelve) hours for 39 days. aspirin 2022-0 2022- No 325mg Q.5D Take 1 [facility] (ECOTRIN) 05-[address] 325 MG 00:00: 00:00 (325 mg [facility] enteric 00 :00 total) by l coated mouth 2 tablet (two) times a day. vancomycin 2022-0 2022- No 1750mg Q12H Infuse 500 [facility] in 0.9% 05-13- mL (1,750 st sodium 00:00: 00:00 mg total) [facility] ta chloride 00 :00 into a l 1750 mg/500 venous mL 1,750 mg catheter IVPB every 12 (twelve) hours for 39 days. aspirin 2022-0 2022- No 325mg Q.5D Take 1 [facility] (ECOTRIN) 05-13- tablet st 325 MG 00:00: 00:00 (325 mg [facility] enteric 00 :00 total) by l coated mouth 2 tablet (two) times a day. vancomycin 2022-0 2022- No 1750mg Q12H Infuse 500 [facility] in 0.9% 05-13-07 mL (1,750 st sodium 00:00: 00:00 mg total) [facility] ta chloride 00 :00 into a l 1750 mg/500 venous mL 1,750 mg catheter IVPB every 12 (twelve) hours for 39 days. aspirin 2022-0 2022- No 325mg Q.5D Take 1 [facility] (ECOTRIN) 05-[address] 325 MG 00:00: 00:00 (325 mg [facility] enteric 00 :00 total) by l coated mouth 2 tablet (two) times a day. vancomycin 2021- No 1750mg Q12H Infuse 500 [facility] in 0.9% 05-13- mL (1,750 st sodium 00:00: 00:00 mg total) Hospi ta chloride 00 :00 into a l 1750 mg/500 venous mL 1,750 mg catheter IVPB every 12 (twelve) hours for 39 days. lactulose 2021-2021- No 20g [id number] Take 30 mL [facility] 20 gram/30 6-17 07-18 [id number] (20 g s t mL solution 00:00: 04:59 3D total) by [facility] 00 :00 mouth 3 l (three) times a day for 30 days. lactulose 2021-0 2021- No 20g [id number] Take 30 mL [facility] 20 gram/30 6-17 07-18 [id number] (20 g s t mL solution 00:00: 04:59 3D total) by [facility] 00 :00 mouth 3 l (three) times a day for 30 days. lactulose 2021-0 2021- No 20g [id number] Take 30 mL [facility] 20 gram/30 6-17 07-18 [id number] (20 g s t mL solution 00:00: 04:59 3D total) by [facility] 00 :00 mouth 3 l (three) times a day for 30 days. lactulose 2021-0 2021- No 20g [id number] Take 30 mL [facility] 20 gram/30 6-17 07-18 [id number] (20 g s t mL solution 00:00: 04:59 3D total) by [facility] 00 :00 mouth 3 l (three) times a day for 30 days. lactulose 2021-0 2021- No 20g [id number] Take 30 mL [facility] 20 gram/30 6-17 07-18 [id number] (20 g s t mL solution 00:00: 04:59 3D total) by [facility] 00 :00 mouth 3 l (three) times a day for 30 days. lactulose 2-0 2022- No 20g [id number] Take 30 mL [facility] 20 gram/30 05-08 [id number] (20 g s t mL solution 00:00: 04:59 3D total) by [facility] 00 :00 mouth 3 l (three) times a day for 30 days. lactulose 2022-0 2022- No 20g [id number] Take 30 mL [facility] 20 gram/30 05-08 [id number] (20 g s t mL solution 00:00: 04:59 3D total) by [facility] :00 mouth 3 l (three) times a day for 30 days. micafungin 2022-0 2022- No 100mg Q24H Infuse 100 Methodi 100 mg in 04-[address] sodium 00:00: 00:00 venous [facility]osp[facility] chloride 00 :00 catheter l 0.9 % MBP daily for 100 mL IVPB 43 days. micafungin 2022-0 2022- No 100mg Q24H Infuse 100 Methodi 100 mg in 04-[address] sodium 00:00: 00:00 venous [facility] chloride 00 :00 catheter l 0.9 % MBP daily for 100 mL IVPB 43 days. micafungin 2022-0 2022- No 100mg Q24H Infuse 100 Methodi 100 mg in 04-[address] sodium 00:00: 00:00 venous [facility] chloride 00 :00 catheter l 0.9 % MBP daily for 100 mL IVPB 43 days. micafungin 2022-0 2022- No 100mg Q24H Infuse 100 Methodi 100 mg in 04-[address] sodium 00:00: 00:00 venous [facility] chloride 00 :00 catheter l 0.9 % MBP daily for 100 mL IVPB 43 days. micafungin 2022-0 2022- No 100mg Q24H Infuse 100 Methodi 100 mg in 04-[address] sodium 00:00: 00:00 venous [facility] chloride 00 :00 catheter l 0.9 % MBP daily for 100 mL IVPB 43 days. micafungin 2022-0 2022- No 100mg Q24H Infuse 100 Methodi 100 mg in 04-28-[address] sodium 00:00: 00:00 venous [facility] chloride 00 :00 catheter l 0.9 % MBP daily for 100 mL IVPB 43 days. micafungin 2021-0 2021- No 100mg Q24H Infuse 100 Methodi 100 mg in 04-28-[address] sodium 00:00: 00:00 venous [facility] chloride 00 :00 catheter l 0.9 % MBP daily for 100 mL IVPB 43 days. [place]ODONE 2021-2021- [place] [id number] 10mg Q6H Take 1 Meth natasha (ROXICODONE 04-28 tablet (10 s t ) 10 MG 00:00: 00:00 mg total) [facility] tablet 00 :00 by mouth l every 6 (six) hours as needed for severe pain for up to 7 days .acute pain. Max Daily Amount: 40 mg ceFAZolin 2021-0 2021- No 2g Q8H Infuse 50 Me thodi in 0.9% 04-28- mL ([address] sodium 00:00: 00:00 total) [facility]ospita chloride 00 :00 into a l (ANCEF) 2 venous gram/50 mL catheter IVPB every 8 (eight) hours for 43 days. aspirin 81 2021- No 81mg Q.5D Chew 1 Meth natasha mg chewable 04-28 tablet (81 s t tablet 00:00: 00:00 mg total) Hospi ta 00 :00 2 (two) l times a day for 30 days. oxyCODONE 2021-0 2021- [place] [id number] 10mg Q6H Take 1 Meth natasha (ROXICODONE 04-28-23 tablet (10 s t ) 10 MG 00:00: 00:00 mg total) [facility] tablet 00 :00 by mouth l every 6 (six) hours as needed for severe pain for up to 7 days .acute pain. Max Daily Amount: 40 mg ceFAZolin 2021-0 2021- No 2g Q8H Infuse 50 Me thodi in 0.9% 04-28-23 mL ([address] sodium 00:00: 00:00 total) [facility]ospita chloride 00 :00 into a l (ANCEF) 2 venous gram/50 mL catheter IVPB every 8 (eight) hours for 43 days. aspirin 81 2022-0 2022- No 81mg Q.5D Chew 1 Meth natasha mg chewable -05 27-23 tablet (81 s t tablet 00:00: 00:00 mg total) Hospi ta 00 :00 2 (two) l times a day for 30 days. oxyCODONE 2022-0 2022- [place] [id number] 10mg Q6H Take 1 Meth natasha (ROXICODONE 6- 06-23 tablet (10 s t ) 10 MG 00:00: 00:00 mg total) [facility] tablet 00 :00 by mouth l every 6 (six) hours as needed for severe pain for up to 7 days .acute pain. Max Daily Amount: 40 mg ceFAZolin 2022-0 2022- No 2g Q8H Infuse 50 Me thodi in 0.9% 6- 06-23 mL (2 [address] sodium 00:00: 00:00 total) [facility]ospita chloride 00 :00 into a l (ANCEF) 2 venous gram/50 mL catheter IVPB every 8 (eight) hours for 43 days. aspirin 81 2-0 2022- No 81mg Q.5D Chew 1 Meth natasha mg chewable 04-28-23 tablet (81 s t tablet 00:00: 00:00 mg total) Hospi ta 00 :00 2 (two) l times a day for 30 days. oxyCODONE 2022-0 2022- [place] [id number] 10mg Q6H Take 1 Meth natasha (ROXICODONE 6-05 27-23 tablet (10 s t ) 10 MG 00:00: 00:00 mg total) [facility] tablet 00 :00 by mouth l every 6 (six) hours as needed for severe pain for up to 7 days .acute pain. Max Daily Amount: 40 mg ceFAZolin 2022-0 2022- No 2g Q8H Infuse 50 Me thodi in 0.9% 6- 06-23 mL ([address] sodium 00:00: 00:00 total) [facility]ospita chloride 00 :00 into a l (ANCEF) 2 venous gram/50 mL catheter IVPB every 8 (eight) hours for 43 days. aspirin 81 2022-0 2022- No 81mg Q.5D Chew 1 Meth natasha mg chewable 6-07 06-23 tablet (81 s t tablet 00:00: 00:00 mg total) Hospi ta 00 :00 2 (two) l times a day for 30 days. oxyCODONE 2022-0 202- No [id number] 10mg Q6H Take 1 Meth natasha (ROXICODONE 6- 06-23 tablet (10 s t ) 10 MG 00:00: 00:00 mg total) [facility] tablet 00 :00 by mouth l every 6 (six) hours as needed for severe pain for up to 7 days .acute pain. Max Daily Amount: 40 mg ceFAZolin 2022-0 2022- No 2g Q8H Infuse 50 Me thodi in 0.9% 6- 06-23 mL ([address] sodium 00:00: 00:00 total) [facility]ospita chloride 00 :00 into a l (ANCEF) 2 venous gram/50 mL catheter IVPB every 8 (eight) hours for 43 days. aspirin 81 2021-0 2022- No 81mg Q.5D Chew 1 Meth natasha mg chewable -05 27-23 tablet (81 s t tablet 00:00: 00:00 mg total) Hospi ta 00 :00 2 (two) l times a day for 30 days. [place]ODONE 2021-0 2021- [place] [id number] 10mg Q6H Take 1 Meth natasha (ROXICODONE 6-05 27-23 tablet (10 s t ) 10 MG 00:00: 00:00 mg total) [facility] tablet 00 :00 by mouth l every 6 (six) hours as needed for severe pain for up to 7 days .acute pain. Max Daily Amount: 40 mg ceFAZolin 2022-0 2022- No 2g Q8H Infuse 50 Me thodi in 0.9% 6- 06-23 mL (2 [address] sodium 00:00: 00:00 total) Hospita chloride 00 :00 into a l (ANCEF) 2 venous gram/50 mL catheter IVPB every 8 (eight) hours for 43 days. aspirin 81 2022-0 2022- No 81mg Q.5D Chew 1 Meth natasha mg chewable 6- 06-23 tablet (81 s t tablet 00:00: 00:00 mg total) Hospi ta 00 :00 2 (two) l times a day for 30 days. oxyCODONE 2022-0 2022- [place] [id number] 10mg Q6H Take 1 Meth natasha (ROXICODONE 04-28 tablet (10 s t ) 10 MG 00:00: 00:00 mg total) [facility] tablet 00 :00 by mouth l every 6 (six) hours as needed for severe pain for up to 7 days .acute pain. Max Daily Amount: 40 mg ceFAZolin 2021- No 2g Q8H Infuse 50 Me thodi in 0.9% 04-28 mL (2 g [address] sodium 00:00: 00:00 total) Hospita chloride 00 :00 into a l (ANCEF) 2 venous gram/50 mL catheter IVPB every 8 (eight) hours for 43 days. aspirin 81 2021- No 81mg Q.5D Chew 1 Meth natasha mg chewable 04-28 tablet (81 s t tablet 00:00: 00:00 mg total) Hospi ta 00 :00 2 (two) l times a day for 30 days. Bactrim DS Yes 1 tab, PO, M emoria 800 mg- 160 5-30 BID, X 10 l mg oral 14:45: day, # 20 Mariajose nn tablet 00 tab, 0 Refill(s), Pharmacy: [facility], 177.8, cm, 04/20/22 3:14:00 CDT, Height, 125.6, kg, 04/20/22 3:14:00 CDT, Weight vancomycin No 2001 mg: Me moria 5-30 infuse l 12:00: over 2.5 [place] 00 hours cefepime + No Notes: Memor ia sterile 5-30 (Same as: l water 20 mL 12:00: Maxipime) H erm MEDICATION WASTE Product Size: 2000 mg Product Wasted: ___ mg lidocaine No Notes: Memori a 1% 5-30 Preservati l 08:51: ve free. [place] (Same as: Xylocaine MPF) Saline No Notes: Memoria Flush 0.9% 5-30 (Same as: l 08:21: BD David Posiflush) fentaNYL No Route: IV, Mem oria (ANES) 04-16 Drug form: l 17:44: INJ, ONCE, Stop date: 04/16/22 12:44:00 CDT lidocaine No Route: IV, Me moria (ANES) 04-16 Drug form: l 17:44: INJ, ONCE, Stop date: 04/16/22 12:44:00 CDT propofol No Route: IV, Mem oria (ANES) 10 04-16 Drug form: l mg 17:32: INJ, Start date: 04/16/22 12:32:00 CDT, Stop date: 04/16/22 13:32:00 CDT Lactated No Route: IV, Mem oria Ringers - Total l Injection 17:31: Volume: Mariajose nn IV (ANES) 00 1,000, 1000 mL Start date: 04/16/22 12:31:00 CDT, Stop date: 04/16/22 13:31:00 CDT Lactated No 500 mL, Memori a Ringers IV 04-16 Rate: 125 l 500 mL 15:50: ml/hr, Infuse over: 4 hr, Route: IV, Dosing Weight 119.091 kg, Total Volume: 500, Start date: 04/16/22 10:50:00 CDT, Duration: 30 day, Stop date: 05/16/22 10:49:00 CDT, BSA: 2.45 m2, 0 lactulose Yes 40 gm = 60 Me moria 10 g/15 mL 5-23 mL, PO, l oral syrup 16:45: BID, X 30 He rm, # 3,600 mL, 11 Refill(s), Pharmacy: [facility] [place], 177.8, cm, 04/07/22 8:48:00 CDT, Height, 123.636, kg, 04/07/22 8:48:00 CDT, Weight lactulose Yes 20 gm = 30 Me moria 10 g/15 mL 5-03 mL, PO, l oral syrup 18:42: Daily, X Her ortez day, # 900 mL, 11 Refill(s), Pharmacy: [facility], 170.18, cm, 02/20/22 9:44:00 CDT, Height, 122.5, kg, 02/20/22 9:44:00 CDT, Weight Lancet Yes , # 30 ea, Memor ia Device 4-01 Not l Misc/Other 15:28: insulin Herm jenniffer 00 dependent, Does not use insulin pump, Last DM eval date 02/20/22, 0 Refill(s), Pharmacy: [facility], 1... Blood Yes Use as Memoria Glucose 3-28 directed, l Test Strips 01:39: MISC, Mariajose nn 00 BID-Before Meals, # 100 strip, 0 Refill(s), Pharmacy: [facility], 170.18, cm, 02/06/22 8:47:00 CDT, Height, 121.3, kg, 02/15/22 13:15:00 CDT, Weight Lactulose Yes 20 gm = 30 Me moria 667 MG/ML 3-28 mL, PO, l Oral 01:39: BID, X 30 [place] Solution 00 day, # 1,800 mL, 0 Refill(s), Pharmacy: [facility], 170.18, cm, 02/06/22 8:47:00 CDT, Height, 121.3, kg, 02/15/22 13:15:00 CDT, Weight Blood Yes Use as Memoria Glucose 3-28 directed, l Monitor 01:38: MISC, [place] 00 Daily, Use as directed., # 1 ea, 0 Refill(s), Pharmacy: [facility], 170.18, cm, 02/06/22 8:47:00 CDT, Height, 121.3, kg, 02/15/22 13:15:00 CDT, Weight Dextrose No 50 mL, Memoria 50% Syringe 3 Route: l (D50W) 21:12: IVP, David 00 Dosing Weight 121.3, kg, ONCE, STAT, Start date: 02/15/22 16:12:00 CDT, Stop date: 02/15/22 16:12:00 CDT, Dextrose 50%: 25 gm = 50 mL Lactulose No Notes: Memori a 667 MG/ML 3-27 (Same l Oral 20:17: as:Chronul [place] Solution ac) Lactulose Yes 20 gm = 30 Me moria 667 MG/ML 9-30 mL, PO, l Oral 21:24: TID, X 30 [place] Solution day, # 2700 mL, 0 Refill(s), Pharmacy: [facility] [place], 170.18, cm, 08/20/21 20:45:00 CDT, Height, 118.892, kg, 08/20/21 20:45:00 CDT, Weight Potassium No Notes: Memori a Chloride 08-21 (Same as: l 15:09: K-Dur 20) "Do Not Crush" Give with food and full glass of water For patients unable to swallow tablet, dissolve in one half glass of water. Allow about 2 minutes for the tablets to disintegra te. Stir before giving to prepare slurry and administer . Please exclude Patient s with feeding tube less than 14 Burmese (Dobhoff, J-tube etc) and pediatric and patients. rifaximin No Notes: Memori a - Same as: l 02:00: Xifaxan Lactulose No Notes: Memori a 667 MG/ML 08-20 (Same l Oral 22:00: as:Chronul David Solution ac) Lactulose No 10 gm = 15 Me moria 667 MG/ML -29 mL, PO, l Oral 20:48: BID, 0 David Solution Refill(s) Dextrose No 12.5 gm, Memor ia 50% Syringe 08-20 25 mL, l (D50W) 19:58: Route: IVP, Drug Form: INJ, Dosing Weight 118.8, kg, PRN, PRN Blood Glucose Results, Start date: 08/20/21 14:58:00 CDT, Duration: 30 day, Stop date: 09/19/21 14:57:00 CDT, 0 Glucagon No 1 mg, Memoria 08-20 Route: IM, l 19:58: Drug form: PDR/INJ, PRN, Dosing Weight 118.8, kg, PRN Blood Glucose Results, Start date: 08/20/21 14:58:00 CDT, Duration: 30 day, Stop date: 09/19/21 14:57:00 CDT, 0 Melatonin No Notes: Memori a 08-20 (Same as: l 19:57: Melatonin) Tylenol No Notes: Do Memor ia 08-20 not exceed l 19:57: 4 gm/day. David 00 (Same as: Tylenol) Zofran No Notes: Memoria 08-20 (Same as: l 19:57: Zofran) MEDICATION WASTE Product Size: 4 mg Product Wasted: ___ mg Potassium No 40 mEq, Memor ia Chloride 08-20 Route: PO, l 19:56: Drug form: ERTAB, ONCE, Dosing Weight 118.8, kg, Start date: 08/20/21 14:56:00 CDT, Stop date: 08/20/21 14:56:00 CDT Lactulose No 30 gm, 45 Mem oria 667 MG/ML 08-20 ml, Route: l Oral 18:32: PO, Drug Solution form: SYRP, ONCE, Dosing Weight 118.8, kg, Priority: STAT, Start date: 08/20/21 13:32:00 CDT, Stop date: 08/20/21 13:32:00 CDT Calcium No 1,000 mL, Memor ia Chloride 08-20 1000 l 0.0014 17:19: ml/hr, MEQ/ML / 00 Infuse Potassium Over: 1 Chloride hr, Route: 0.004 IV, 1,000, MEQ/ML / Drug form: Sodium INJ, ONCE, Chloride Priority: 0.103 STAT, MEQ/ML / Dosing Sodium Weight Lactate 118.8 kg, 0.028 Start MEQ/ML date: Injectable 08/20/21 Solution 12:19:00 CDT, Stop date: 08/20/21 12:19:00 CDT, 0 Saline No Notes: Memoria Flush 0.9% 08-20 (Same as: l 15:42: BD [place] 00 Posiflush) Lactulose Yes 20 gm = 30 Me moria 667 MG/ML 3-18 mL, PO, l Oral 22:06: BID, PRN David Solution 00 constipati on, X 30 day, # 1,800 mL, 11 Refill(s), Pharmacy: [facility], 170.18, cm, 12/02/20 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 Do not operate heavy machinery while on this medication ., # 10 tab, 0 Refill(s), Pharmacy: [facility], 170.18, cm, 10/24/20 8:49:... 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 (STAR 4 P.M. DAY BEFORE PROCEDURE) ., # 2700 unknown unit, 4 Refill(s), Pharmacy: [place] [id number], 167.64, cm, 12/21/19 14:39:00 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, Height, 112.443, kg, 12/21/19 14:39:00 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, Weight Dexamethaso 2019-0 No Notes: Memoria ne 2-18 MEDICATION l 16:00: WASTE David 00 Product Size: 10 mg Product Wasted: ___ mg celecoxib 2019-0 Yes 200 mg = 1 Me moria 200 MG Oral 2-18 cap, PO, l Capsule 14:17: BID, # 28 Mariajose nn [Celebrex] 00 cap, 0 Refill(s) Aspirin 81 2019-0 Yes 81 mg = 1 Me moria MG Enteric 2-18 tab, PO, l Coated 14:14: BID, # 42 Hunter n Tablet 00 tab, 0 Refill(s) celecoxib 2019-0 No 200 mg = 1 Me moria 200 MG Oral 2-18 cap, PO, l Capsule 14:14: BID, # 28 Mariajose nn [Celebrex] 00 cap, 0 Refill(s), Pharmacy: [facility] oxyCODONE 5 2019-0 Yes 5 mg = 1 Me moria mg oral 2-18 cap, PO, l capsule, 14:14: Q4H, PRN Mariajose nn immediate 00 Pain, X 7 release day, # 40 cap, 0 Refill(s), given to patient Thyroxine 2019-0 No Notes: Memori a 2-18 Take 1 l 12:30: hour David 00 before or 2 hours after meal; Enteral feeds may interefere with the absorption of this medication .(Same as:Levothr oid, Synthroid) Vancomycin 2019-0 No 2001 mg: Me moria 2-18 infuse l 04:00: over 2.5 [place] 00 hours For adult patients only: Round to nearest 250 mg per Medical Staff approval MEDICATION WASTE Product Size: 1000 mg Product Wasted: ___ mg tranexamic 2019-0 No Notes: Memor ia acid 2-18 (Same as: l 00:23: Lysteda) Tranexamic No Notes: Memor ia Acid 2-18 (Same as: l 00:06: Lysteda) Ondansetron No Notes: Eusebio brandon 2-18 (Same as: l 00:06: Zofran) MEDICATION WASTE Product Size: 4 mg Product Wasted: ___ mg Cefazolin No Notes: Memori a 2-17 Same as: l 23:00: Ancef [place] Aspirin 325 No Notes: (Do Memoria MG Enteric 2-17 Not Crush) l Coated 23:00: Do not [place] Tablet 00 crush or chew. Docusate No Notes: Memoria Sodium 100 2-17 (Same as: l MG Oral 23:00: Colace) David Capsule (Do Not Crush) Celebrex No Notes: Memoria 2-17 NSAID. l 23:00: Please [place] 00 check indication . Not for seizure. (Same As: CeleBREX) Lactulose No Notes: Memori a 667 MG/ML 2-17 (Same l Oral 23:00: as:Chronul [place] Solution 00 ac) XIFAXAN No 550 mg, 1 Memor ia 2-17 tab, l 23:00: Route: PO, Drug form: TAB, BID, Dosing Weight 112.443, kg, Start date: 01/08/20 17:00:00 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, Duration: 30 day, Stop date: 02/07/20 9:00:00 CDT Xifaxan No Xifaxan Memoria 550mg 2-17 550mg, 1 l 23:00: tab, Drug form: MISC, Route: PO, BID, 01/08/20 17:00:00 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, Duration: 30 day, Stop date: 02/07/20 9:00:00 CDT, 0 NS 1,000 mL No 1,000 mL, M emoria 2-17 Rate: 85 l 18:06: ml/hr, Infuse over: 11.8 hr, Route: IV, Dosing Weight 112.443 kg, Total Volume: 1,000, Start date: 01/08/20 12:06:00 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, Duration: 30 day, Stop date: 02/07/20 12:05:00 CDT, 2.32, m2, 0 Famotidine 2019- No Notes: Memor ia 2-17 (Same as: l 18:06: Pepcid) [place] 00 Milk of 2020-0 No Notes: Memoria Magnesia 2-17 (Same as: l 18:06: Milk of [place] 00 Magnesia, MOM) Maalox No Notes: Memoria Advanced 2-17 (aluminum l Regular 18:06: hydroxide- Herm jenniffer Strength 00 magnesium SUSP hyd- simethicon e 400-400-40 mg/5ml 30 ml ud RONI) Diphenhydra No Notes: Eusebio brandon mine 2-17 (Same as: l 18:06: Benadryl) [place] 00 Bisacodyl 2019-0 No Notes: Memori a 2-17 (Same As: l 18:06: Dulcolax, [place] Correctol) (Do Not Crush) "Do Not Crush" POLYETHYLEN No Notes: Eusebio brandon E GLYCOL 2-17 Dissolve l 3350 18:06: in 8 oz of [place] 00 water or juice. (Same as: Miralax) Trazodone No Notes: Memori a 2-17 (Same As: l 18:06: Desyrel) Melatonin 2019-0 No Notes: Memori a 2-17 (Same as: l 18:06: Melatonin) [place] tramadol No Notes: Not Mem oria hydrochlori 2-17 to exceed l de 50 MG 18:06: 400mg/day. Her ortez Oral Tablet 00 (Same As: Ultram) Oxycodone No Notes: Memori a Hydrochlori 2-17 (Same as: l de 5 MG 18:06: Roxicodone Herm jenniffer Oral Tablet 00 ) ketAMINE No Route: IV, Mem oria (ANES) 2-17 Drug form: l 17:14: INJ, ONCE, [place] Stop date: 01/08/20 11:14:00 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 lidocaine No Route: IV, Me moria (ANES) 2-17 Drug form: l 17:09: INJ, ONCE, Stop date: 01/08/20 11:09:00 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 propofol 2020-0 No Route: IV, Mem oria (ANES) 2-17 Drug form: l 17:09: INJ, ONCE, Stop date: 01/08/20 11:09:00 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 ceFAZolin 2019-0 No Route: IV, Me moria (ANES) 2-17 Drug form: l 16:59: INJ, ONCE, Stop date: 01/08/20 10:59:00 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 propofol 2019-0 No Route: IV, Mem oria (ANES) 10 2-17 Drug form: l mg 16:22: INJ, Start date: 01/08/20 10:22:00 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, Stop date: 01/08/20 11:22:00 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 Lactated No Route: IV, Mem oria Ringers 2-17 Total l Injection 16:12: Volume: Mariajose nn IV (ANES) 00 1,000, 1000 mL Start date: 01/08/20 10:12:00 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, Stop date: 01/08/20 11:12:00 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 Oxycodone 2019-0 No Notes: Memori a Hydrochlori 2-17 (Same as: l de 5 MG 15:50: Roxicodone Herm jenniffer Oral Tablet ) Hydromorpho No Notes: Eusebio brandon ne 2-17 Same as l 15:50: Dilaudid Flumazenil No Notes: Memor ia 2-17 (Same as: l 15:50: Romazicon) Naloxone 2019-0 No Notes: Memoria 2-17 Same as l 15:50: Narcan Ondansetron 2019- No Notes: Eusebio brandon 2-17 (Same as: l 15:50: Zofran) MEDICATION WASTE Product Size: 4 mg Product Wasted: ___ mg tizanidine 2019- No Notes: Memor ia 2-17 (Same As: l 15:50: Zanaflex) celecoxib 2019-0 No Notes: Memori a 2-17 NSAID. l 14:00: Please David 00 check indication . Not for seizure. (Same As: CeleBREX) ropivacaine 2019-0 No Notes: Eusebio brandon 2-17 NOT FOR l 14:00: IV use Each mL contains: Ropivacain e 2.46 mg, Epinephrin e 0.005 mg, Clonidine 0.0008 mg and Ketorolac 0.3 mg in Sodium Chloride Cefazolin 2019- No 2 gm, 50 Eusebio brandon 2-17 mL, Route: l 14:00: IVP, Drug form: INJ, ONCALL, Dosing Weight 112.727, kg, (Patients weighing < 120 kg), Start date: 01/08/20 8:00:00 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, Duration: 1 doses or times, Stop date: 01/08/20 13:00:00 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, ABX Indication : Surgical Prophylaxi s, 0 Vancomycin 2019-0 No 2000 mg: Me moria 2-17 infuse l 14:00: over 2.5 hours Lactated 2019-0 No 1,000 mL, Eusebio brandon Ringers IV -17 Rate: 40 l 1,000 mL 13:48: ml/hr, Infuse over: 25 hr, Route: IV, Dosing Weight 112.443 kg, Total Volume: 1,000, Start date: 01/08/20 7:48:00 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, Duration: 30 day, Stop date: 02/07/20 7:47:00 CDT, 2.32, m2, 0 Dexamethaso 2019-0 No Notes: Eusebio brandon ne 2-17 dexamethas l 13:13: one 10 David 00 mg/1 ml VL INJ PF MEDICATION WASTE Product Size: 10 mg Product Wasted: ___ mg Tranexamic 2019-0 No Notes: Memor ia Acid 2-17 (Same as: l 13:13: Lysteda) David Zofran ODT 2019-0 No Notes: Memor ia 2-17 (Same as: l 13:13: Zofran [place] 00 ODT) vancomycin 2019-0 No Notes: Memor ia + Sodium 2-17 TIME l Chloride 12:00: CRITICAL Mariajose nn 0.9% IV 250 00 MEDICATION mL (Same As: Vancocin) For adult patients only: Round to nearest 250 mg per Medical Staff approval polymyxin B No Notes: Eusebio brandon sulfate + 2-17 (Same as: l Sodium 12:00: Polymyxin Hunter n Chloride 00 B Sulfate) 0.9% IV 250 mL ropivacaine No Notes: Eusebio brandon 2-17 NOT FOR l 12:00: IV use David 00 Each mL contains: Ropivacain e 2.46 mg, Epinephrin e 0.005 mg, Clonidine 0.0008 mg and Ketorolac 0.3 mg in Sodium Chloride baclofen 10 Yes 10 mg = 1 M emoria mg oral 2-01 tab, PO, l tablet 01:39: Bedtime, # Mariajose nn 00 10 tab, 0 Refill(s), Pharmacy: [facility] Ibuprofen No 400 mg = 2 Me moria 200 MG Oral 1-30 tab, PO, l Tablet 20:53: PRN, PRN [place] [Advil] 00 Pain, # 120 tab, 0 Refill(s) Saw Yes = 1 tab, Memoria [place] 1-30 PO, Daily, l 450 mg oral 20:52: 0 Hunter n capsule 00 Refill(s) tramadol 2018-11 Yes 50 mg = 1 Eusebio brandon hydrochlori 2-30 tab, PO, l de 50 MG 17:05: Q4H, 0 David Oral Tablet 00 Refill(s) minocycline 2018-11 Yes 100 mg = 1 Memoria 100 mg oral 1-27 cap, PO, l capsule 12:49: Q12H, X 7 Mariajose nn 00 day, # 14 cap, 0 Refill(s) celecoxib 2018-11 Yes 200 mg = 1 Me moria 200 MG Oral 1-27 cap, PO, l Capsule 12:49: BID, # 28 Mariajose nn [Celebrex] 00 cap, 0 Refill(s) Aspirin 325 2018-11 Yes 325 mg = 1 Memoria MG Enteric 1-27 tab, PO, l Coated 12:49: BID, # 28 Hunter n Tablet 00 tab, 0 Refill(s) Acetaminoph 2018-11 Yes 1 tab, PO, Memoria en 325 MG / 1-27 Q6H, X 7 l Hydrocodone 12:49: day, # 40 H ermann Bitartrate 00 tab, 0 7.5 MG Oral Refill(s), Tablet given to [[place] patient 7.5/325] Dexamethaso 2018-11 No Notes: Memoria ne 1-26 MEDICATION l 16:00: WASTE David 00 Product Size: 10 mg Product Wasted: ___ mg Thyroxine 2018-11 No Notes: Memori a 1-26 Take 1 l 12:30: hour [place] 00 before or 2 hours after meal; Enteral feeds may interefere with the absorption of this medication .(Same as:Levothr oid, Synthroid) Vancomycin 2018-11 No 2000 mg: Me moria - infuse l 03:00: over 2.5 [place] 00 hours For adult patients only: Round to nearest 250 mg per Medical Staff approval MEDICATION WASTE Product Size: 1000 mg Product Wasted: ___ mg Tranexamic 2018-11 No Notes: Memor ia Acid 1-25 (Same as: l 23:35: Lysteda) David 00 Aspirin 325 2018-11 No Notes: (Do Memoria MG Enteric 1-25 Not Crush) l Coated 23:00: Do not David Tablet 00 crush or chew. Celebrex 2018-11 No Notes: Memoria 1-25 NSAID. l 23:00: Please David 00 check indication . Not for seizure. 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, 0 Cefazolin 2018-11 No Notes: Memori a 1-25 Same as: l 22:00: Ancef David 00 Lactulose 2018-11 No Notes: Memori a 667 MG/ML -25 (Same l Oral 19:00: as:Chronul [place] Solution 00 ac) NS 1,000 mL 2018-11 No 1,000 mL, M emoria - Rate: 85 l 17:35: ml/hr, David Infuse over: 11.8 hr, Route: IV, Dosing Weight 117.273 kg, Total Volume: 1,000, Start date: 10/16/19 11:35:00 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, Duration: 30 day, Stop date: 11/15/19 11:34:00 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, 2.39, m2, 0 Famotidine 2018-11 No Notes: Memor ia 1-25 (Same as: l 17:35: Pepcid) [place] Milk of 2018-11 No Notes: Memoria Magnesia -25 (Same as: l 17:35: Milk of Magnesia, MOM) Maalox 2018-11 No Notes: Memoria Advanced -25 (aluminum l Regular 17:35: hydroxide- Herm jenniffer Strength 00 magnesium SUSP hyd- simethicon e 400-400-40 mg/5ml 30 ml ud RONI) Morphine 2018-11 No Notes: Memoria 1-25 (Same l 17:35: as:MORPhin [place] e Sulfate) Dulcolax 2018-11 No Notes: Memoria Laxative -25 (Same As: l 17:35: Dulcolax, David Bisco-Lax) Zofran ODT 2018-11 No Notes: Memor ia -25 (Same as: l 17:35: Zofran [place] ODT) Melatonin 2018-11 No Notes: Memori a 1-25 (Same as: l 17:35: Melatonin) Diphenhydra 2018-11 No Notes: Eusebio brandon mine -25 (Same as: l 17:35: Benadryl) David 00 POLYETHYLEN 2018-11 No Notes: Eusebio brandon E GLYCOL -25 Dissolve l 3350 17:35: in 8 oz of [place] water or juice. (Same as: Miralax) Trazodone 2018-11 No Notes: Memori a 1-25 (Same As: l 17:35: Desyrel) David tramadol 2018-11 No Notes: Not Mem oria hydrochlori -25 to exceed l de 50 MG 17:35: 400mg/day. Her ortez Oral Tablet 00 (Same As: Ultram) Oxycodone 2018-11 No Notes: Memori a Hydrochlori 1-25 (Same as: l de 5 MG 17:35: Roxicodone Herm jenniffer Oral Tablet ) Hydralazine 2018-11 No Notes: Eusebio brandon 1-25 (Same as: l 17:30: Apresoline ) Push over 5 minutes Morphine 2018-11 No Notes: Memoria 1-25 (Same l 17:30: as:MORPhin David e Sulfate) Oxycodone 2018-11 No Notes: Memori a Hydrochlori 1-25 (Same as: l de 5 MG 17:30: Roxicodone Herm jenniffer Oral Tablet ) Hydromorpho 2018-11 No Notes: Eusebio brandon ne - Same as l 17:30: Dilaudid Flumazenil 2018-11 No Notes: Memor ia -25 (Same as: l 17:30: Romazicon) Naloxone 2018-11 No Notes: Memoria 1-25 Same as l 17:30: Narcan Albuterol 2018-11 No Notes: SEE Me moria 0.83 MG/ML 25 RT l Inhalant 17:30: DOCUMENTAT Her ortez Solution 00 ION (Same as: Proventil) Diphenhydra 2018-11 No Notes: Eusebio brandon mine 1-25 (Same as: l 17:30: Benadryl) Ondansetron 2018-11 No Notes: Eusebio brandon 1-25 (Same as: l 17:30: Zofran) MEDICATION WASTE Product Size: 4 mg Product Wasted: ___ mg lidocaine 2018-11 No Route: IV, Me moria (ANES) - Drug form: l 15:47: INJ, ONCE, Stop date: 10/16/19 9:47:00 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 propofol 2018-11 No Route: IV, Mem oria (ANES) -25 Drug form: l 15:47: INJ, ONCE, Stop date: 10/16/19 9:47:00 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 dexamethaso 2018-11 No Route: IV, Memoria ne (ANES) 12-16 Drug form: l 15:47: INJ, ONCE, Stop date: 10/16/19 9:47:00 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 ceFAZolin 2018-11 No Route: IV, Me moria (ANES) 1-25 Drug form: l 15:42: INJ, ONCE, Stop date: 10/16/19 9:42:00 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 XIFAXAN 2018-11 No 550 mg, Memoria -25 Route: PO, l 15:00: Drug form: David 00 TAB, BID, Dosing Weight 117.273, kg, Start date: 10/16/19 9:00:00 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, Duration: 30 day, Stop date: 11/14/19 17:00:00 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 propofol 2018-11 No Route: IV, Mem oria (ANES) 10 - Drug form: l mg 14:55: INJ, Start date: 10/16/19 8:55:00 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, Stop date: 10/16/19 9:55:00 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 Lactated 2018-11 No Route: IV, Mem oria Ringers 1-25 Total l Injection 14:00: Volume: Mariajose nn IV (ANES) 00 1,000, 1000 mL Start date: 10/16/19 8:00:00 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, Stop date: 10/16/19 9:00:00 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 ropivacaine 2018-11 No Notes: Eusebio brandon 1-25 NOT FOR l 13:00: IV use Each mL contains: Ropivacain e 2.46 mg, Epinephrin e 0.005 mg, Clonidine 0.0008 mg and Ketorolac 0.3 mg in Sodium Chloride Cefazolin 2018-11 No 2 gm, 50 Eusebio brandon 1-25 mL, Route: l 13:00: IVP, Drug form: INJ, ONCALL, Dosing Weight 119.091, kg, (Patients weighing < 120 kg), Start date: 10/16/19 7:00:00 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, Duration: 1 doses or times, Stop date: 10/16/19 13:00:00 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, ABX Indication : Surgical Prophylaxi s, 0 Vancomycin 2018-11 No 2000 mg: Me moria 1-25 infuse l 13:00: over 2.5 [place] 00 hours For adult patients only: Round to nearest 250 mg per Medical Staff approval MEDICATION WASTE Product Size: 1000 mg Product Wasted: ___ mg Lactated 2018-11 No 1,000 mL, Eusebio brandon Ringers IV 12-16 Rate: TKO, l 1,000 mL 12:44: Route: IV, Her ortez 00 Dosing Weight 117.273 kg, Total Volume: 1,000, Start date: 10/16/19 6:44:00 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, Duration: 30 day, Stop date: 11/15/19 6:43:00 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, 2.39, m2, 0 Dexamethaso 2018-11 No Notes: Eusebio brandon ne -25 dexamethas l 12:04: one 10 [place] 00 mg/1 ml VL INJ PF MEDICATION WASTE Product Size: 10 mg Product Wasted: ___ mg Tranexamic 2018-11 No Notes: Memor ia Acid - (Same as: l 12:04: Lysteda) [place] 00 Zofran ODT 2018-11 No Notes: Memor ia -25 (Same as: l 12:04: Zofran David 00 ODT) Ciprofloxac 2018-11 No 500 mg = 1 Memoria in 500 MG 1-14 tab, PO, l Oral Tablet 23:16: Q12H, X 7 H ermann [Cipro] 00 day, # 14 tab, 0 Refill(s), Pharmacy: [facility] Milk 2018-11 Yes 1 tab, PO, Memoria Thistle 1-12 Daily, 0 l oral tablet 19:16: Refill(s) H erm rifaximin Yes 550 mg = 1 Me moria 550 MG Oral 9-30 tab, PO, l Tablet 16:30: BID, # 60 Hunter n [XIFAXAN] 00 tab, 11 Refill(s), Pharmacy: [facility] meloxicam No PO, Daily, Me moria 9-23 0 l 14:04: Refill(s) [place] 00 Lactulose Yes 10 gm = 15 Me moria 667 MG/ML 9-09 mL, PO, l Oral 14:32: BID, # 900 David Solution 00 mL, 11 Refill(s), Pharmacy: [facility] Lactulose No 10 gm = 15 Me moria 667 MG/ML 9-09 mL, PO, l Oral 13:34: BID, 0 David Solution 00 Refill(s) levothyroxi Yes 50 Memori a ne 50 mcg 7-22 microgram l (0.05 mg) 14:06: = 1 tab, Herm jenniffer oral tablet 00 PO, Daily, # 90 tab, 3 Refill(s), Pharmacy: [facility] [id number] Lactulose 2017-11 No 10 gm = 15 Me moria 667 MG/ML 0-29 mL, PO, l Oral 13:17: BID, PRN [place] Solution 00 constipati on, # 240 mL, 0 Refill(s) Ciprofloxac 2017-11 No 250 mg, Mem oria in 0-29 PO, l 13:15: Bedtime, 0 [place] 00 Refill(s) loperamide No 2 mg = 1 Mem oria 2 mg oral 8-15 cap, PO, l capsule 01:44: Q4H, PRN Hunter n 00 loose stools, X 10 day, # 60 cap, 0 Refill(s), Pharmacy: [facility] [id number] Aleve No 220 mg, Memoria 8-15 PO, PRN, 0 l 01:11: Refill(s) [place] 00 Daily Multi Yes 1 tab, PO, Memoria oral tablet 2-26 Daily, 0 l 14:59: Refill(s) [place] 00 Calcium Yes 1 tab, Memoria 500+D oral 2-26 CHEW, BID, l tablet, 14:59: 0 [place] chewable 00 Refill(s) Vitamin B12 Yes 1,000 Memor ia 1000 mcg 2-26 microgram l oral tablet 14:59: = 1 tab, He rmann 00 PO, Daily, # 100 tab, 0 Refill(s) calcium 2021- No 1{tbl} QD Chew 1 Metho di carbonate-v -16 06- tablet st itamin D3 00:00: 00:00 daily. Hospi ta 500 00 :00 l mg(1,250mg) -400 unit chewable tablet calcium 2021- No 1{tbl} QD Chew 1 Metho di carbonate-v -16 06- tablet st itamin D3 00:00: 00:00 daily. Hospi ta 500 00 :00 l mg(1,250mg) -400 unit chewable tablet calcium 2021- No 1{tbl} QD Chew 1 Metho di carbonate-v 01-[address] itamin D3 00:00: 00:00 daily. Hospi ta 500 00 :00 l mg(1,250mg) -400 unit chewable tablet calcium 2021- No 1{tbl} QD Chew 1 Metho di carbonate-v 01-[address] itamin D3 00:00: 00:00 daily. Hospi ta 500 00 :00 l mg(1,250mg) -400 unit chewable tablet calcium 2021- No 1{tbl} QD Chew 1 Metho di carbonate-v 01-[address] itamin D3 00:00: 00:00 daily. Hospi ta 500 00 :00 l mg(1,250mg) -400 unit chewable tablet calcium No 1{tbl} QD Chew 1 Metho di carbonate-v 01-[address] itamin D3 00:00: 00:00 daily. Hospi ta 500 00 :00 l mg(1,250mg) -400 unit chewable tablet calcium No 1{tbl} QD Chew 1 Metho di carbonate-v 01-[address] itamin D3 00:00: 00:00 daily. Hospi ta 500 00 :00 l mg(1,250mg) -400 unit chewable tablet B3-azelaic- 2021- No 1{tbl} QD Take 1 M ethodi zinc-B6-atomic spectroscopist 01-17 tablet by per-FA 00:00: 00:00 [facility] 600-5-10-5- 00 :00 daily. l 1.5 mg tablet B3-azelaic- 2021- No 1{tbl} QD Take 1 M ethodi zinc-B6-atomic spectroscopist 01-17 tablet by per-FA 00:00: 00:00 [facility] 600-5-10-5- 00 :00 daily. l 1.5 mg tablet B3-azelaic- 2021- No 1{tbl} QD Take 1 M ethodi zinc-B6-atomic spectroscopist 01-[address] per-FA 00:00: 00:[address] [facility] 600-5-10-5- 00 :00 daily. l 1.5 mg tablet -azelaic- 2021- No 1{tbl} QD Take 1 M ethodi zinc-B6-atomic spectroscopist 01-[address] per-FA 00:00: 00:[address] [facility] 600-5-10-5- 00 :00 daily. l 1.5 mg tablet -azelaic- 2021- No 1{tbl} QD Take 1 M ethodi zinc-B6-atomic spectroscopist 01-[address] per-FA 00:00: 00:[address] [facility] 600-5-10-5- 00 :00 daily. l 1.5 mg tablet -azelaic- 2021- No 1{tbl} QD Take 1 M ethodi zinc-B6-atomic spectroscopist 01-[address] per-FA 00:00: 00:[address] [facility] 600-5-10-5- 00 :00 daily. l 1.5 mg tablet -azelaic- 2021- No 1{tbl} QD Take 1 M ethodi zinc-B6-atomic spectroscopist 01-[address] per-FA 00:00: 00:00 [facility] 600-5-10-5- 00 :00 daily. l 1.5 mg tablet Calcium Calcium Yes [facility] Citrate Citrate [facility] TABS TABS ans B-12 100 B-12 100 Yes [facility] MCG Oral MCG Oral [facility] Tablet Tablet ans Milk Milk Yes [facility] Thistle Thistle [facility] CAPS CAPS ans Saw Saw Yes [facility] [place] 1000 MG 1000 MG ans Oral Oral Capsule Capsule Immunizations Ordered Immunization Filled Immunization Date Status Commen ts Source Name Name [id number] 2021-10-31 Completed Eusebio ronald Hernandez [id number] 00:00:00 [facility] COVID-19 2021-10-31 Completed [facility]00 [facility] COVID-2021-10-31 Completed [facility]ACC[facility]:00:00 [facility] COVID19 2021-10-31 Completed [facility]ACC[facility] 00:00:00 [facility] COVID19 2021-10-31 Completed [facility]ACC[facility]:00:00 [facility] COVID19 2021-10-31 Completed [facility]ACCIN[facility] 00:00:00 [facility] COVID19 2021-10-31 Completed [facility] VACCINATION 00:00:00 [facility] COVIDMarcelle 2021-10-31 Completed [facility] VACCINATION 00:00:00 [facility] influenza virus 2021-09-03 Completed [facility] [place] vaccine, inactivated 00:00:00 [id number] 2021-01-12 Completed Eusebio ronald Hernandez [id number]<kearney 15:57:00 p>1</sup> [id number] 2020-12-14 Completed Eusebio ronald Hernandez [id number]<kearney 22:10:00 p>2</sup> pneumococcal 2020-09-30 Completed [facility] Her ortez 23-valent 15:26:00 vaccine<sup>1</sup> pneumococcal 2020-09-30 Completed [facility] ortez 23-valent 15:26:00 vaccine<sup>3</sup> Hx influenza 2020-08-15 Completed [facility] vaccine-unspecified< 00:00:00 sup>2</sup> Hx influenza 2020-08-15 Completed [facility] ortze vaccine-unspecified< 00:00:00 sup>4</sup> diphtheria/pertussis 2019-06-02 Completed Eusebio ronald Hernandez , acel/tetanus adult 17:24:00 influenza 2018-09-05 Completed [facility] ortez vaccine-unspecified 00:00:00 FLUCELVAX QUAD PF 2018-08-[address] 00:[facility]:00 [facility] Pneumococcal 2018-08-25 Completed [facility] Conjugate 13-Valent 00:00:00 Hospi alvaro FLUCELVAX QUAD PF 2018-08-[address] 00:[facility]:00 Hospital Pneumococcal 2018-08-25 Completed [facility] Conjugate 13-Valent 00:00:00 Hospi alvaro FLUCELVAX QUAD PF 2018-08-[address] 00:[facility]:00 Hospital Pneumococcal 2018-08-25 Completed [facility] Conjugate 13-Valent 00:00:00 Hospi alvaro FLUCELVAX QUAD PF 2018-08-[address] 00:[facility]:00 Hospital Pneumococcal 2018-08-25 Completed [facility] Conjugate 13-Valent 00:00:00 Hospi alvaro FLUCELVAX QUAD PF 2018-08-[address] 00:[facility]:00 Hospital Pneumococcal 2018-08-25 Completed [facility] Conjugate 13-Valent 00:00:00 Hospi alvaro FLUCELVAX QUAD PF 2018-08-[address] 00:[facility]:00 Hospital Pneumococcal 2018-08-25 Completed [facility] Conjugate 13-Valent 00:00:00 Hospi alvaro FLUCELVAX QUAD PF 2018-08-[address] 00:[facility]:00 Hospital Pneumococcal 2018-08-25 Completed [facility] 2018[facility]17 Com[facility] ortez 13-valent vaccine 18:26:00 influenza 2017-08-22 Completed [facility] ortez vaccine-unspecified 00:00:00 FLUZONE QUAD PF 2011-12-14 Completed [facility] 00:00:00 Hospital FLUZONE QUAD PF 2011-12-14 Completed [facility] 00:00:00 Hospital FLUZONE QUAD PF 2011-12-14 Completed [facility] 00:00:00 Hospital FLUZONE QUAD PF 2011-12-14 Completed [facility] 00:00:00 Hospital FLUZONE QUAD PF 2011-12-14 Completed [facility] 00:00:00 [facility] FLUZONE QUAD PF 2011-12-14 Completed [facility] 00:00:00 Hospital FLUZONE QUAD PF 2011-12-14 Completed [facility] 00:00:00 Hospital Vital Signs Vital Name Observation Time Observation Value Comments Source Systolic blood 2023-04-12 16:31:10 108 mm[Hg] [facility] pressure Diastolic blood 2023-04-12 16:31:10 64 mm[Hg] [facility] pressure Heart rate 2023-04-12 16:31:10 82 /[facility] 2023-04-12 16:31:10 36.83 Lashaun [facility] Respiratory rate 2023-04-12 16:31:10 16 /min [facility] Oxygen saturation in 2023-04-12 16:31:10 100 /min [facility] Arterial blood by Pulse oximetry Body weight 2023-04-12 10:50:[address] [facility] BMI 2023-04-12 10:50:00 34.08 kg/m2 [facility] Systolic blood 2023-01-23 21:22:17 113 mm[Hg] [facility] pressure Diastolic blood 2023-01-23 21:22:17 62 mm[Hg] [facility] pressure Heart rate 2023-01-23 21:22:17 88 /min [facility] Body temperature 2023-01-23 21:22:17 36.72 Lashaun [facility] Respiratory rate 2023-01-23 21:22:17 18 /min [facility] Oxygen saturation in 2023-01-23 21:22:17 98 /min [facility] Arterial blood by Pulse oximetry Body height 2023-01-22 14:09:[address] [facility] Body weight 2023-01-22 14:09:[address] [facility] BMI 2023-01-22 14:09:00 35.11 kg/m2 [facility] Body height 2023-01-12 21:34:[address] [facility] Body weight 2023-01-12 21:34:00 99.791 kg [facility] 2023-01-12 21:34:00 31.57 kg/m2 [facility] Body height 2022-10-20 16:44:[address] [facility] Body weight 2022-10-20 16:44:[address] [facility] BMI 2022-10-20 16:44:00 30.85 kg/m2 [facility] Systolic blood 2022-08-12 16:17:36 127 mm[Hg] [facility] 2022-08-12 16:17:36 79 mm[Hg] [facility] pressure Heart rate 2022-08-12 16:17:36 80 /min [facility] Body temperature 2022-08-12 16:17:36 35.89 Lashaun [facility] Respiratory rate 2022-08-12 16:17:36 19 /min [facility] Oxygen saturation in 2022-08-12 16:17:36 97 /min [facility] Arterial blood by Pulse oximetry Heart Rate 2022-07-29 13:41:00 [facility] [place] Systolic (mm Hg) 2022-07-29 13:41:00 Eusebio rial [place] Diastolic (mm Hg) 2022-07-29 13:41:00 [facility] [place] Height 2022-07-29 13:41:00 177.8 cm [facility] Weight 2022-07-29 13:41:00 [facility] BMI Calculated 2022-07-29 13:41:00 [facility] [place] Body height 2022-07-21 18:46:[address] [facility] Body weight 2022-07-21 18:46:[address] [facility] BMI 2022-07-21 18:46:00 41.90 kg/m2 [facility] Heart Rate 2022-07-17 15:34:00 [facility] David Respitory Rate 2022-07-17 15:34:00 Memori al David Systolic (mm Hg) 2022-07-17 15:34:00 Eusebio rial [place] Diastolic (mm Hg) 2022-07-17 15:34:00 [facility] orial [place] Height 2022-07-17 15:34:00 177.8 cm [facility] [place] Weight 2022-07-17 15:34:00 [facility] BMI Calculated 2022-07-17 15:34:00 [facility] [place] Systolic blood 2022-05-29 01:38:51 109 mm[Hg] [facility] pressure Diastolic blood 2022-05-29 01:38:51 57 mm[Hg] [facility] pressure Heart rate 2022-05-29 01:38:51 76 /min [facility] Body temperature 2022-05-29 01:38:51 36.5 Lashaun [facility] Oxygen saturation in 2022-05-29 01:38:51 93 /min [facility] Arterial blood by Pulse oximetry Respiratory rate 2022-05-28 21:30:53 17 /min [facility] Temperature Oral (F) 2022-04-20 15:43:00 [facility]22[facility] 15:43[facility]00 [facility] 2022-04-20 15:43:00 Mem[facility] al David Systolic (mm Hg) 2022-04-20 15:43:00 Eusebio rial [place] Diastolic (mm Hg) 2022-04-20 15:43:00 Mem o[facility] [place] Systolic (mm Hg) 2022-04-20 13:30:00 Eusebio rial [place] Diastolic (mm Hg) 2022-04-20 13:30:00 Mem o[facility] [place] Heart Rate 2022-04-20 13:30:00 [facility] Respitory Rate 2022-04-20 13:30:00 Memori al David Systolic (mm Hg) 2022-04-20 13:00:00 Eusebio rial [place] Diastolic (mm Hg) 2022-04-20 13:00:00 Mem o[facility] [place] Heart Rate 2022-04-20 13:00:00 [facility] Respitory Rate 2022-04-20 13:00:00 Memori al David Temperature Oral (F) 2022-04-20 12:35:00 98.5 F [facility] [place] Height 2022-04-20 08:14:00 177.8 cm [facility] [place] BMI Calculated 2022-04-20 08:14:00 [facility] David Weight 2022-04-20 08:14:00 [facility] Temperature Oral (F) 2022-04-20 08:14:00 98.8 F [facility] Respitory Rate 2022-04-16 18:10:00 Memori al David Systolic (mm Hg) 2022-04-16 18:10:00 Eusebio rial [place] Diastolic (mm Hg) 2022-04-16 18:10:00 Mem o[facility] [place] Respitory Rate 2022-04-16 18:00:00 Memori al David Systolic (mm Hg) 2022-04-16 18:00:00 Eusebio rial [place] Diastolic (mm Hg) 2022-04-16 18:00:00 Mem [facility] [place] Respitory Rate 2022-04-16 17:50:00 Memori al David Systolic (mm Hg) 2022-04-16 17:50:00 Eusebio rial David Diastolic (mm Hg) 2022-04-16 17:50:00 Mem o[facility] [place] Heart Rate 2022-04-16 17:41:00 [facility] Heart Rate 2022-04-16 16:38:00 [facility] [place] Height 2022-04-16 16:05:00 177.8 cm [facility] [place] Weight 2022-04-16 16:05:00 [facility] [place] BMI Calculated 2022-04-16 16:05:00 [facility] [place] Height 2022-04-15 14:47:00 177.8 cm [facility] Weight 2022-04-15 14:47:00 [facility] BMI Calculated 2022-04-15 14:47:00 Memori al David Heart Rate 2022-04-07 13:48:00 [facility] [place] Systolic (mm Hg) 2022-04-07 13:48:00 Eusebio rial [place] Diastolic (mm Hg) 2022-04-07 13:48:00 Mem o[facility] [place] Height 2022-04-07 13:48:00 177.8 cm [facility] [place] Weight 2022-04-07 13:48:00 [facility] [place] BMI Calculated 2022-04-07 13:48:00 [facility] [place] Heart Rate 2022-02-20 14:44:00 [facility] Systolic (mm Hg) 2022-02-20 14:44:00 Eusebio rial [place] Diastolic (mm Hg) 2022-02-20 14:44:00 [facility] [place] Height 2022-02-20 14:44:00 170.18 cm [facility] Weight 2022-02-20 14:44:00 [facility] BMI Calculated 2022-02-20 14:44:00 [facility] [place] Heart Rate 2022-02-16 01:30:00 [facility] [place] Respitory Rate 2022-02-16 01:30:00 [facility] [place] Systolic (mm Hg) 2022-02-16 01:30:00 Eusebio rial [place] Diastolic (mm Hg) 2022-02-16 01:30:00 Mem [facility] [place] Systolic (mm Hg) 2022-02-15 23:43:00 Eusebio rial David Diastolic (mm Hg) 2022-02-15 23:43:00 Mem orial David Heart Rate 2022-02-15 23:43:00 [facility] Respitory Rate 2022-02-15 23:43:00 Memori al David Systolic (mm Hg) 2022-02-15 21:41:00 Eusebio rial David Diastolic (mm Hg) 2022-02-15 21:41:00 Mem orial David Heart Rate 2022-02-15 21:41:00 [facility] [place] Respitory Rate 2022-02-15 21:41:00 [facility] [place] Weight 2022-02-15 18:15:00 [facility] Temperature Oral (F) 2022-02-15 18:15:00 98.3 F [facility] [place] Heart Rate 2022-02-06 13:47:00 [facility] Respitory Rate 2022-02-06 13:47:00 [facility] David Systolic (mm Hg) 2022-02-06 13:47:00 Eusebio rial [place] Diastolic (mm Hg) 2022-02-06 13:47:00 [facility] [place] Height 2022-02-06 13:47:00 170.18 cm [facility] [place] Weight 2022-02-06 13:47:00 [facility] [place] BMI Calculated 2022-02-06 13:47:00 [facility] David Heart Rate 2021-11-11 15:20:00 [facility] [place] Systolic (mm Hg) 2021-11-11 15:20:00 Eusebio rial David Diastolic (mm Hg) 2021-11-11 15:20:00 Mem orial David Temperature Oral (F) 2021-08-21 16:55:00 98.5 F [facility] Heart Rate 2021-08-21 16:55:00 [facility] Respitory Rate 2021-08-21 16:55:00 [facility] [place] Systolic (mm Hg) 2021-08-21 16:55:00 Eusebio rial [place] Diastolic (mm Hg) 2021-08-21 16:55:00 Mem orial David Temperature Oral (F) 2021-08-21 12:30:00 98.8 F [facility] [place] Heart Rate 2021-08-21 12:30:00 [facility] [place] Respitory Rate 2021-08-21 12:30:00 [facility] David Systolic (mm Hg) 2021-08-21 12:30:00 Eusebio rial [place] Diastolic (mm Hg) 2021-08-21 12:30:00 Mem orial David Temperature Oral (F) 2021-08-21 09:04:00 97.4 F [facility] Heart Rate 2021-08-21 09:04:00 [facility] [place] Respitory Rate 2021-08-21 09:04:00 [facility] [place] Systolic (mm Hg) 2021-08-21 09:04:00 Eusebio rial David Diastolic (mm Hg) 2021-08-21 09:04:00 [facility] [place] Height 2021-08-21 01:45:00 170.18 cm [facility] Weight 2021-08-21 01:45:00 [facility] BMI Calculated 2021-08-21 01:45:00 [facility] David BMI Calculated 2021-08-20 15:31:00 [facility] Weight 2021-08-20 15:31:00 [facility] [place] Height 2021-08-20 15:31:00 170.18 cm [facility] Systolic (mm Hg) 2020-12-02 14:21:00 Eusebio rial [place] Diastolic (mm Hg) 2020-12-02 14:21:00 [facility] [place] Heart Rate 2020-12-02 14:21:00 [facility] Respitory Rate 2020-12-02 14:21:00 [facility] Height 2020-12-02 14:21:00 170.18 cm [facility] Weight 2020-12-02 14:21:00 [facility] BMI Calculated 2020-12-02 14:21:00 [facility] Systolic (mm Hg) 2020-10-24 14:49:00 Eusebio rial [place] Diastolic (mm Hg) 2020-10-24 14:49:00 Mem o[facility] David Heart Rate 2020-10-24 14:49:00 [facility] Respitory Rate 2020-10-24 14:49:00 [facility] Height 2020-10-24 14:49:00 170.18 cm [facility] Weight 2020-10-24 14:49:00 [facility] [place] BMI Calculated 2020-10-24 14:49:00 [facility] [place] Systolic (mm Hg) 2020-10-15 15:17:00 Eusebio rial [place] Diastolic (mm Hg) 2020-10-15 15:17:00 Mem o[facility] Heart Rate 2020-10-15 15:17:00 [facility] [place] Height 2020-10-15 15:17:00 170.18 cm [facility] Weight 2020-10-15 15:17:00 [facility] [place] BMI Calculated 2020-10-15 15:17:00 [facility] Systolic (mm Hg) 2020-09-30 14:34:00 Eusebio rial [place] Diastolic (mm Hg) 2020-09-30 14:34:00 [facility] [place] Heart Rate 2020-09-30 14:34:00 [facility] Respitory Rate 2020-09-30 14:34:00 [facility] [place] Height 2020-09-30 14:34:00 170.18 cm [facility] [place] Weight 2020-09-30 14:34:00 [facility] [place] BMI Calculated 2020-09-30 14:34:00 [facility] [place] Body height 2020-03-06 10:47:00 69 [in_us] [facility] Weight 2020-03-06 10:47:00 263 [lb_av] [facility] Body mass index 2020-03-06 10:47:00 38.84 kg/m2 [facility] (BMI) [Ratio] Body height 2020-01-23 13:59:00 69 [in_us] [facility] Weight 2020-01-23 13:59:00 263 [lb_av] [facility] Body mass index 2020-01-23 13:59:00 38.84 kg/m2 [facility] (BMI) [Ratio] Systolic (mm Hg) 2020-01-09 16:35:00 Eusebio rial [place] Diastolic (mm Hg) 2020-01-09 16:35:00 [facility] Heart Rate 2020-01-09 16:35:00 [facility] [place] Respitory Rate 2020-01-09 16:35:00 [facility] Systolic (mm Hg) 2020-01-09 14:39:00 [facility] Diastolic (mm Hg) 2020-01-09 14:39:00 [facility] [place] Heart Rate 2020-01-09 14:39:00 [facility] Respitory Rate 2020-01-09 14:39:00 [facility] [place] Systolic (mm Hg) 2020-01-09 13:34:00 [facility] [place] Diastolic (mm Hg) 2020-01-09 13:34:00 [facility] Temperature Oral (F) 2020-01-09 13:33:00 97.6 F [facility] Heart Rate 2020-01-09 13:33:00 [facility] [place] Respitory Rate 2020-01-09 13:33:00 [facility] Temperature Oral (F) 2020-01-09 10:23:00 98.2 F [facility] Temperature Oral (F) 2020-01-09 05:06:00 98.1 F [facility] Height 2020-01-08 12:54:00 167.64 cm [facility] Weight 2020-01-08 12:54:00 [facility] BMI Calculated 2020-01-08 12:54:00 [facility] [place] Body height 2019-12-29 09:20:00 69 [in_us] [facility] Weight 2019-12-29 09:20:00 263 [lb_av] [facility] Body mass index 2019-12-29 09:20:00 38.84 kg/m2 [facility] (BMI) [Ratio] Systolic (mm Hg) 2019-12-23 01:06:00 [facility] Diastolic (mm Hg) 2019-12-23 01:06:00 [facility] [place] Heart Rate 2019-12-23 01:06:00 [facility] Respitory Rate 2019-12-23 01:06:00 [facility] Height 2019-12-23 01:06:00 177.8 cm [facility] [place] Weight 2019-12-23 01:06:00 [facility] BMI Calculated 2019-12-23 01:06:00 [facility] Height 2019-12-01 15:24:00 69 [in_us] [facility] [facility] Weight 2019-12-01 15:24:00 263 [lb_av] [facility] Body Mass Index 2019-12-01 15:24:00 38.84 kg/m2 [facility] Calculated Systolic (mm Hg) 2019-11-20 17:02:00 Eusebio rial [place] Diastolic (mm Hg) 2019-11-20 17:02:00 [facility] Heart Rate 2019-11-20 17:02:00 [facility] Respitory Rate 2019-11-20 17:02:00 [facility] [place] Temperature Oral (F) 2019-11-20 17:02:00 98.3 F [facility] Height 2019-11-20 17:02:00 170.18 cm [facility] [place] Weight 2019-11-20 17:02:00 [facility] [place] BMI Calculated 2019-11-20 17:02:00 [facility] Height 2019-11-13 10:16:00 69 [in_us] [facility] Weight 2019-11-13 10:16:00 263 [lb_av] [facility] Body Mass Index 2019-11-13 10:16:00 38.84 kg/m2 [facility] Calculated Height 2019-11-10 14:34:00 69 [in_us] [facility] Weight 2019-11-10 14:34:00 263 [lb_av] [facility] Body Mass Index 2019-11-10 14:34:00 38.84 kg/m2 [facility] Calculated Height 2019-10-31 13:48:00 69 [in_us] [facility] Weight 2019-10-31 13:48:00 263 [lb_av] [facility] Body Mass Index 2019-10-31 13:48:00 38.84 kg/m2 [facility] Cal[facility] Temperature Oral (F) 2019-10-18 13:45:00 97.9 F [facility] Heart Rate 2019-10-18 13:45:00 [facility] Respitory Rate 2019-10-18 13:45:00 [facility] Systolic (mm Hg) 2019-10-18 13:45:00 Eusebio rial [facility] Diastolic (mm Hg) 2019-10-18 13:45:00 [facility] Temperature Oral (F) 2019-10-18 10:33:00 98.1 F [facility] Heart Rate 2019-10-18 10:33:00 [facility] [place] Respitory Rate 2019-10-18 10:33:00 [facility] Systolic (mm Hg) 2019-10-18 10:33:00 Eusebio rial [facility] Diastolic (mm Hg) 2019-10-18 10:33:00 [facility] [place] Temperature Oral (F) 2019-10-18 05:47:00 97.9 F [facility] [place] Heart Rate 2019-10-18 05:47:00 [facility] Respitory Rate 2019-10-18 05:47:00 [facility] [place] Systolic (mm Hg) 2019-10-18 05:47:00 Eusebio rial [place] Diastolic (mm Hg) 2019-10-18 05:47:00 [facility] [place] Height 2019-10-16 12:06:00 170.18 cm [facility] Weight 2019-10-16 12:06:00 [facility] BMI Calculated 2019-10-16 12:06:00 [facility] Systolic (mm Hg) 2019-09-25 14:51:00 Eusebio [facility] [place] Diastolic (mm Hg) 2019-09-25 14:51:00 [facility] Heart Rate 2019-09-25 14:51:00 [facility] [place] Respitory Rate 2019-09-25 14:51:00 [facility] Temperature Oral (F) 2019-09-25 14:51:00 97.7 F [facility] Height 2019-09-25 14:51:00 170.18 cm [facility] [place] Weight 2019-09-25 14:51:00 [facility] [place] BMI Calculated 2019-09-25 14:51:00 [facility] Height 2019-09-20 08:52:00 69 [in_us] [facility] Weight 2019-09-20 08:52:00 263 [lb_av] [facility] Body Mass Index 2019-09-20 08:52:00 38.84 kg/m2 [facility] Cal[facility] Height 2019-08-21 16:13:00 175.26 cm [facility] [place] Weight 2019-08-21 16:13:00 [facility] [place] BMI Calculated 2019-08-21 16:13:00 [facility] Systolic (mm Hg) 2019-08-14 14:38:00 Eusebio rial David Diastolic (mm Hg) 2019-08-14 14:38:00 [facility] Systolic (mm Hg) 2019-08-14 14:00:00 Eusebio rial [facility] Diastolic (mm Hg) 2019-08-14 14:00:00 [facility] Height 2019-08-14 14:00:00 170.82 cm [facility] Weight 2019-08-14 14:00:00 [facility] [place] BMI Calculated 2019-08-14 14:00:00 [facility] Heart Rate 2019-08-14 14:00:00 [facility] Respitory Rate 2019-08-14 14:00:00 [facility] [place] Systolic (mm Hg) 2019-07-31 13:12:00 Eusebio rial [place] Diastolic (mm Hg) 2019-07-31 13:12:00 [facility] Heart Rate 2019-07-31 13:12:00 [facility] [place] Respitory Rate 2019-07-31 13:12:00 [facility] Temperature Oral (F) 2019-07-31 13:12:00 98.3 F [facility] Weight 2019-07-31 13:12:00 [facility] Height 2019-07-31 13:12:00 170.82 cm [facility] BMI Calculated 2019-07-31 13:12:00 [facility] Height 2019-07-21 12:58:00 69 [in_us] [facility] Weight 2019-07-21 12:58:00 277 [lb_av] [facility] Body Mass Index 2019-07-21 12:58:00 40.91 kg/m2 [facility] Cal[facility] Height 2019-06-16 10:55:00 69 [in_us] [facility] Weight 2019-06-16 10:55:00 277 [lb_av] [facility] Body Mass Index 2019-06-16 10:55:00 40.91 kg/m2 [facility] Cal[facility] Height 2019-06-12 13:35:00 175.26 cm [facility] Weight 2019-06-12 13:35:00 [facility] BMI Calculated 2019-06-12 13:35:00 [facility] Temperature Oral (F) 2019-06-12 13:35:00 98.1 F [facility] Heart Rate 2019-06-12 13:35:00 [facility] Systolic (mm Hg) 2019-06-12 13:35:00 Eusebio rial David Diastolic (mm Hg) 2019-06-12 13:35:00 [facility] BMI Calculated 2019-06-02 14:21:00 [facility] Weight 2019-06-02 14:21:00 [facility] Height 2019-06-02 14:21:00 177.8 cm [facility] [place] Heart Rate 2019-06-02 14:21:00 [facility] Respitory Rate 2019-06-02 14:21:00 [facility] Systolic (mm Hg) 2019-06-02 14:21:00 Eusebio rial [facility] Diastolic (mm Hg) 2019-06-02 14:21:00 [facility] [place] BMI Calculated 2019-05-01 13:46:00 [facility] [place] Weight 2019-05-01 13:46:00 [facility] [place] Height 2019-05-01 13:46:00 175.26 cm [facility] [place] Heart Rate 2019-05-01 13:46:00 [facility] [place] Respitory Rate 2019-05-01 13:46:00 [facility] Temperature Oral (F) 2019-05-01 13:46:00 97.9 F [facility] [place] Systolic (mm Hg) 2019-05-01 13:46:00 Eusebio rial David Diastolic (mm Hg) 2019-05-01 13:46:00 [facility] [place] Weight 2019-03-20 13:17:00 [facility] BMI Calculated 2019-03-20 13:17:00 [facility] [place] Height 2019-03-20 13:17:00 175.26 cm [facility] [place] Heart Rate 2019-03-20 13:17:00 [facility] Respitory Rate 2019-03-20 13:17:00 [facility] Temperature Oral (F) 2019-03-20 13:17:00 98.4 F [facility] [place] Systolic (mm Hg) 2019-03-20 13:17:00 Eusebio rial [place] Diastolic (mm Hg) 2019-03-20 13:17:00 [facility] [place] Systolic (mm Hg) 2018-12-30 15:30:00 Eusebio rial David Diastolic (mm Hg) 2018-12-30 15:30:00 [facility] [place] Heart Rate 2018-12-30 15:30:00 [facility] Respitory Rate 2018-12-30 15:30:00 [facility] [place] Temperature Oral (F) 2018-12-30 15:30:00 98.2 F [facility] [place] Height 2018-12-30 15:30:00 175.26 cm [facility] Weight 2018-12-30 15:30:00 [facility] [place] BMI Calculated 2018-12-30 15:30:00 [facility] BMI Calculated 2018-09-27 14:23:00 [facility] Height 2018-09-27 14:23:00 175.26 cm [facility] Weight 2018-09-27 14:23:00 [facility] [place] Respitory Rate 2018-09-27 14:23:00 [facility] Temperature Oral (F) 2018-09-27 14:23:00 98.3 F [facility] Heart Rate 2018-09-27 14:23:00 [facility] [place] Systolic (mm Hg) 2018-09-27 14:23:00 Eusebio rial [place] Diastolic (mm Hg) 2018-09-27 14:23:00 [facility] Height 2018-09-19 13:12:00 175.26 cm [facility] Weight 2018-09-19 13:12:00 [facility] [place] BMI Calculated 2018-09-19 13:12:00 [facility] Systolic (mm Hg) 2018-09-19 13:12:00 Eusebio rial [place] Diastolic (mm Hg) 2018-09-19 13:12:00 [facility] [place] Respitory Rate 2018-09-19 13:12:00 [facility] Heart Rate 2018-09-19 13:12:00 [facility] [place] Temperature Oral (F) 2018-09-19 13:12:00 98.0 F [facility] Height 2018-07-06 01:03:00 175.26 cm [facility] Weight 2018-07-06 01:03:00 [facility] [place] BMI Calculated 2018-07-06 01:03:00 [facility] [place] Temperature Oral (F) 2018-07-06 01:03:00 97 F [facility] Respitory Rate 2018-07-06 01:03:00 [facility] [place] Heart Rate 2018-07-06 01:03:00 [facility] Systolic (mm Hg) 2018-07-06 01:03:00 Eusebio rial [place] Diastolic (mm Hg) 2018-07-06 01:03:00 [facility] [place] Weight 2018-01-17 14:41:00 [facility] BMI Calculated 2018-01-17 14:41:00 [facility] [place] Height 2018-01-17 14:41:00 175.26 cm [facility] Temperature Oral (F) 2018-01-17 14:41:00 98.0 F [facility] Respitory Rate 2018-01-17 14:41:00 Janae guadarrama [place] Heart Rate 2018-01-17 14:41:00 [facility] [place] Systolic (mm Hg) 2018-01-17 14:41:00 Eusebio cardenas David Diastolic (mm Hg) 2018-01-17 14:41:00 [facility] [place] Procedures Procedure Date / Time Performing Clinician Source Performed COMPREHENSIVE METABOLIC 2023-04-12 16:41:00 Luca Barrow [facility] PANEL AMMONIA LEVEL 2023-04-12 16:41:00 [facility] paco [facility] PROTHROMBIN TIME WITH 2023-04-12 16:41:00 [facility] INR ESTIMATED GFR 2023-04-12 16:41:00 Luca Barrow [facility] ESTIMATED GFR 2023-04-12 16:19:00 [facility] US DUPLEX VENOUS UPPER 2023-04-11 16:37:02 Luca Barrow Elie [facility] EXTREMITY LEFT IONIZED CALCIUM 2023-04-10 10:25:00 Jasmyn Stockton [facility] 2023-04-10 10:25:00 Luca Barrow [facility] PANEL ESTIMATED GFR 2023-04-10 10:25:00 Luca Barrow [facility] 2023-04-08 11:33:00 Luca Barrow [facility] PANEL ESTIMATED GFR 2023-04-08 11:33:00 Luca Barrow [facility] CBC WITH PLATELET AND 2023-04-08 09:37:00 Luca Barrow Elie [facility] DIFFERENTIAL ESTIMATED GFR 2023-04-08 09:32:00 Luca Barrow Elie [facility] IONIZED CALCIUM 2023-04-07 13:03:00 Jasmyn Stockton [facility] MAGNESIUM LEVEL 2023-04-07 13:03:00 Jasmyn Stockton [facility] METABOLIC 2023-04-07 13:03:00 Barrow, [facility] PANEL CBC WITH PLATELET AND 2023-04-07 13:03:00 [facility] DIFFERENTIAL ESTIMATED GFR 2023-04-07 13:03:00 [facility] BASIC METABOLIC PANEL 2023-04-06 10:20:00 [facility] CBC HEMOGRAM 2023-04-06 10:20:00 [facility] ESTIMATED GFR 2023-04-06 10:20:00 [facility] CBC WITH PLATELET AND 2023-04-05 14:56:00 [facility] DIFFERENTIAL COMPREHENSIVE METABOLIC 2023-04-05 14:56:00 [facility] PANEL MAGNESIUM LEVEL 2023-04-05 14:56:00 [facility] PHOSPHORUS LEVEL 2023-04-05 14:56:00 [facility] ESTIMATED GFR 2023-04-05 14:56:00 [facility] URINE CULTURE 2023-04-05 01:31:00 [facility] AND 2023-04-05 01:31:00 [facility] MICROSCOPY, WITH REFLEX TO CULTURE US ABDOMINAL LIMITED 2023-04-03 21:31:39 [facility] FIBRINOGEN 2023-04-03 14:41:00 [facility] HEPATITIS C VIRUS (HCV), 2023-04-03 14:41:00 [facility] Armaan [facility] QUANTITATIVE PCR CBC WITH PLATELET AND 2023-04-03 13:37:00 [facility] DIFFERENTIAL COMPREHENSIVE METABOLIC 2023-04-03 13:37:00 [facility] Armaan [facility] PANEL C-REACTIVE PROTEIN 2023-04-03 13:37:00 [facility] PROCALCITONIN 2023-04-03 13:37:00 [facility] HEMOGLOBIN A1C 2023-04-03 13:37:00 [facility] MAGNESIUM LEVEL 2023-04-03 13:37:00 [facility] ESTIMATED GFR 2023-04-03 13:37:00 [facility] THYROID STIMULATING 2023-04-03 13:37:00 [facility] HORMONE TROPONIN T 2023-04-03 13:37:00 [facility] BILIRUBIN DIRECT 2023-04-03 13:37:00 [facility] PREALBUMIN LEVEL 2023-04-03 13:36:00 [facility] ALPHA FETOPROTEIN 2023-04-03 13:36:00 [facility] LACTIC ACID LEVEL, 2023-04-03 08:15:00 Power Killian [facility] SEPSIS - NOW AND REPEAT 2X EVERY 3 HOURS TROPONIN T 2023-04-03 08:15:00 [facility] AMMONIA LEVEL 2023-04-03 06:07:00 Power Killian [facility] CT ABDOMEN PELVIS W 2023-04-03 05:48:32 Power Killian [facility] CONTRAST CT ANGIOGRAM PE CHEST 2023-04-03 05:48:11 Power Killian [facility] NT-PROBNP 2023-04-03 03:58:00 Power Killian [facility] CREATINE KINASE, TOTAL 2023-04-03 03:58:00 Power Killian [facility] (CPK) LIPASE LEVEL 2023-04-03 03:58:00 [facility], BLOOD 2023-04-03 03:58:00 Power Killian [facility] BLOOD CULTURE, AEROBIC & 2023-04-03 03:56:00 Power Killian [facility] ANAEROBIC TROPONIN T 2023-04-03 03:56:00 Power Killian [facility] COMPREHENSIVE METABOLIC 2023-04-03 03:56:00 Power Killian [facility] PANEL ESTIMATED GFR 2023-04-03 03:56:00 Constantin Power [facility] LACTIC ACID LEVEL, 2023-04-03 03:55:00 Power Killian [facility] SEPSIS - NOW AND REPEAT 2X EVERY 3 HOURS ACUTE VIRAL HEPATITIS 2023-04-03 03:55:00 Constantin [facility] PANEL (HAV, HBV, HCV) HEPATITIS C VIRUS (HCV), 2023-04-03 03:55:00 Power Killian [facility] QUALITATIVE VENIPUNC NEED PHYS 2023-04-03 03:09:30 Felipe Hidalgo [facility] SKILL,DX OR RX D-DIMER 2023-04-03 00:52:00 OkayPower [facility] CBC WITH PLATELET AND 2023-04-03 00:52:00 Okay [facility] DIFFERENTIAL PARTIAL THROMBOPLASTIN 2023-04-03 00:52:00 ConstantinPower Destiny [facility] TIME (PTT) PROTHROMBIN TIME WITH 2023-04-03 00:52:00 [facility] INR ESTIMATED GFR 2023-04-03 00:23:00 Power Killian [facility] ECG 12-LEAD 2023-04-02 23:49:38 Constantin Power [facility] XR CHEST 1 VW PORTABLE 2023-04-02 21:44:31 Okay [facility] US DUPLEX VENOUS LOWER 2023-04-02 21:35:00 Constantin Power [facility] EXTREMITY BILATERAL ESTIMATED GFR 2023-04-02 20:24:00 Okay Power [facility] ECG ED PRELIMINARY 2023-04-02 19:50:21 Power Killian [facility] INTERPRETATION POC GLUCOSE 2023-01-23 17:03:00 [facility] POC GLUCOSE 2023-01-23 13:20:00 [facility] BLOOD CULTURE, AEROBIC & 2023-01-23 10:59:00 [facility] ANAEROBIC AMMONIA LEVEL 2023-01-23 10:59:00 [facility] COMPREHENSIVE METABOLIC 2023-01-23 10:59:00 [facility] PANEL CBC WITH PLATELET AND 2023-01-23 10:59:00 [facility] DIFFERENTIAL MAGNESIUM LEVEL 2023-01-23 10:59:00 [facility] PHOSPHORUS LEVEL 2023-01-23 10:59:00 [facility] PARTIAL THROMBOPLASTIN 2023-01-23 10:59:00 [facility] TIME (PTT) PROTHROMBIN TIME WITH 2023-01-23 10:59:00 [facility] INR THYROID STIMULATING 2023-01-23 10:59:00 [facility] HORMONE ESTIMATED GFR 2023-01-23 10:59:00 [facility] POC GLUCOSE 2023-01-23 08:49:00 [facility] POC GLUCOSE 2023-01-23 04:52:00 [facility] POC GLUCOSE 2023-01-23 03:12:00 [facility] POC GLUCOSE 2023-01-22 22:46:00 [facility] LACTIC ACID LEVEL, 2023-01-22 20:15:00 [facility] SEPSIS - NOW AND REPEAT 2X EVERY 3 HOURS US ABDOMEN COMPLETE 2023-01-22 19:27:57 [facility] POC GLUCOSE 2023-01-22 17:16:00 [facility] LACTIC ACID LEVEL, 2023-01-22 16:47:00 [facility] SEPSIS - NOW AND REPEAT 2X EVERY 3 HOURS TROPONIN T 2023-01-22 16:47:00 [facility] PROTHROMBIN TIME WITH 2023-01-22 16:47:00 Shaheed Zuluaga [facility] INR COVID-19 QUALITATIVE 2023-01-22 13:21:00 Allan Acuna [facility] RT-PCR URINE CULTURE 2023-01-22 13:21:00 [facility] URINALYSIS SCREEN AND 2023-01-22 13:21:00 Allan Acuna [facility] MICROSCOPY, WITH REFLEX TO CULTURE CT HEAD WO CONTRAST 2023-01-22 12:50:39 Allan Acuna [facility] XR CHEST 1 VW PORTABLE 2023-01-22 12:15:39 Robby Barrow [facility] ECG ED PRELIMINARY 2023-01-22 12:09:19 Allan Acuna [facility] INTERPRETATION CBC WITH PLATELET AND 2023-01-22 12:02:00 Robby Barrow [facility] DIFFERENTIAL COMPREHENSIVE METABOLIC 2023-01-22 12:02:00 Robby Barrow [facility] PANEL LACTIC ACID LEVEL, 2023-01-22 12:02:00 [facility] SEPSIS - NOW AND REPEAT 2X EVERY 3 HOURS LIPASE LEVEL 2023-01-22 12:02:00 [facility] 2023-01-22 12:02:00 [facility] TROPONIN T 2023-01-22 12:02:00 [facility] ESTIMATED GFR 2023-01-22 12:02:00 Robby Barrow spital ECG 12-LEAD 2023-01-22 11:48:58 [facility] C-REACTIVE PROTEIN 2022-10-20 18:35:00 [facility] 2022-10-20 18:35:00 Clemente Shaffer [facility] VENIPUNC NEED PHYS 2022-08-12 15:45:25 Lissy Tam [facility] SKILL,DX OR RX PHOSPHORUS LEVEL 2022-08-12 10:07:00 Shante Hadley [facility] MAGNESIUM LEVEL 2022-08-12 10:07:00 Shante Hadley [facility] CBC WITH PLATELET AND 2022-08-12 10:07:00 Shante Hadley [facility] DIFFERENTIAL Chakraborty COMPREHENSIVE METABOLIC 2022-08-12 10:07:00 Leonie [facility] PANEL Chakraborty ESTIMATED GFR 2022-08-12 10:07:00 Hidalgo, [facility] VENIPUNC NEED PHYS 2022-08-11 22:00:04 Helder Garcia [facility] SKILL,DX OR RX PHOSPHORUS LEVEL 2022-08-11 10:13:00 Leonie Shante [facility] MAGNESIUM LEVEL 2022-08-11 10:13:00 Shante Hadley [facility] CBC WITH PLATELET AND 2022-08-11 10:13:00 Shante Hadley [facility] DIFFERENTIAL [facility] COMPREHENSIVE METABOLIC 2022-08-11 10:13:00 Leonie [facility] PANEL Chakraborty ESTIMATED GFR 2022-08-11 10:13:00 Hidalgo, [facility] LACTIC ACID LEVEL, 2022-08-11 03:05:00 Basia [facility] SEPSIS - NOW AND REPEAT 2X EVERY [address] ABDOMEN PELVIS W 2022-08-11 01:46:41 Leonie [facility] CONTRAST Chakraborty XR KNEE 3 VW RIGHT 2022-08-11 00:21:00 Shante Hadley [facility] Chakraborty THYROID STIMULATING 2022-08-11 00:10:00 [facility] T4, FREE 2022-08-11 00:10:00 Shante Hadley [facility] LACTIC ACID LEVEL, 2022-08-11 00:10:00 Hidalgo, [facility] SEPSIS - NOW AND REPEAT 2X EVERY 3 HOURS COVID-19 QUALITATIVE 2022-08-10 22:59:00 Hidalgo, [facility] RT-PCR BLOOD CULTURE, AEROBIC & 2022-08-10 22:50:00 [facility] ANAEROBIC URINE CULTURE 2022-08-10 21:48:00 Rehrer, [facility] URINALYSIS SCREEN AND 2022-08-10 20:41:00 Rehrer, [facility] MICROSCOPY, WITH REFLEX TO CULTURE BLOOD CULTURE, AEROBIC & 2022-08-10 20:39:00 [facility] ANAEROBIC CBC WITH PLATELET AND 2022-08-10 20:38:00 Rehrer, [facility] DIFFERENTIAL COMPREHENSIVE METABOLIC 2022-08-10 20:38:00 Rehrer, [facility] PANEL SEDIMENTATION RATE 2022-08-10 20:38:00 [facility] C-REACTIVE PROTEIN 2022-08-10 20:38:00 [facility] LACTIC ACID LEVEL, 2022-08-10 20:38:00 [facility] SEPSIS - NOW AND REPEAT 2X EVERY 3 HOURS ESTIMATED GFR 2022-08-10 20:38:00 Rehrer, [facility] XR KNEE 3 VW RIGHT 2022-06-16 18:30:10 [facility] BAS[facility] METABOLIC PANEL 2022-05-28 09:05:00 Cristi Castano [facility] ESTIMATED GFR 2022-05-28 09:05:00 Cristi Castano Ho spital VANCOMYCIN LEVEL, TROUGH 2022-05-27 01:38:00 Cristi Castano [facility] SEDIMENTATION RATE 2022-05-25 10:05:00 [facility] C-REACTIVE PROTEIN 2022-05-25 10:05:00 [facility] BASIC METABOLIC PANEL 2022-05-24 11:03:00 Cristi Castano [facility] ESTIMATED GFR 2022-05-24 11:03:00 Cristi Castano spital VANCOMYCIN LEVEL, TROUGH 2022-05-23 13:30:00 [facility] CBC WITH PLATELET AND 2022-05-21 07:17:00 [facility] DIFFERENTIAL CBC WITH PLATELET AND 2022-05-20 08:11:00 [facility] DIFFERENTIAL VANCOMYCIN LEVEL, RANDOM 2022-05-20 08:11:00 Cristi Castano [facility] ENTERIC VIRAL PANEL 2022-05-19 15:33:00 Rober Vick [facility] OCCULT BLOOD, STOOL 2022-05-19 15:33:00 [facility] CBC WITH PLATELET AND 2022-05-19 11:22:00 [facility] DIFFERENTIAL CREATININE LEVEL 2022-05-19 11:22:00 [facility] ESTIMATED GFR 2022-05-19 11:22:00 [facility] AMMONIA LEVEL 2022-05-19 11:22:00 [facility] spital COMPREHENSIVE METABOLIC 2022-05-19 04:10:00 [facility] PANEL C-REACTIVE PROTEIN 2022-05-19 04:10:00 [facility] SEDIMENTATION RATE 2022-05-19 04:10:00 [facility] ESTIMATED GFR 2022-05-19 04:10:00 [facility] spital SEDIMENTATION RATE 2022-05-18 19:58:00 [facility] C-REACTIVE PROTEIN 2022-05-18 19:58:00 [facility] CBC WITH PLATELET AND 2022-05-18 08:09:00 Baldev Kruse [facility] DIFFERENTIAL COMPREHENSIVE METABOLIC 2022-05-18 08:09:00 [facility] PANEL MAGNESIUM LEVEL 2022-05-18 08:09:00 [facility] PHOSPHORUS LEVEL 2022-05-18 08:09:00 Baldev Kruse ospital ESTIMATED GFR 2022-05-18 08:09:00 Baldev Kruse spital COMPREHENSIVE METABOLIC 2022-05-17 11:07:00 [facility] PANEL MAGNESIUM LEVEL 2022-05-17 11:07:00 Baldev Kruse Ho spital PHOSPHORUS LEVEL 2022-05-17 11:07:00 Baldev Kruse H ospital CBC WITH PLATELET AND 2022-05-17 11:07:00 [facility]FFERENTIAL VANCOMYCIN LEVEL, TROUGH 2022-05-17 11:07:00 Lori [facility] ESTIMATED GFR 2022-05-17 11:07:00 Baldev Kruse spital CONSULT TO OSTOMY CARE 2022-05-16 20:29:55 [facility] NURSE CBC WITH PLATELET AND 2022-05-16 07:55:00 [facility] DIFFERENTIAL PROTHROMBIN TIME WITH 2022-05-16 07:55:00 [facility] INR COMPREHENSIVE METABOLIC 2022-05-16 07:55:00 [facility] PANEL MAGNESIUM LEVEL 2022-05-16 07:55:00 [facility] PHOSPHORUS LEVEL 2022-05-16 07:55:00 [facility] ESTIM[facility] GFR 2022-05-16 07:55:00 [facility] CONSULT TO OSTOMY CARE 2022-05-16 06:31:27 [facility] NURSE COVID-19 QUALITATIVE 2022-05-16 03:53:00 Germania TrivediMartínez [facility] RT-PCR BLOOD CULTURE, AEROBIC & 2022-05-15 23:16:00 Sedrcik Trivedi [facility] ANAEROBIC CBC WITH PLATELET AND 2022-05-15 23:15:00 Shikha [facility] DIFFERENTIAL COMPREHENSIVE METABOLIC 2022-05-15 23:15:00 [facility] 2022-05-15 23:15:00 [facility] Ruby Ho [facility] CRITICAL CARE 2022-05-15 22:05:48 German[facility] Ruby Ho spital COMPREHENSIVE METABOLIC 2022-05-14 10:00:00 Lucy Alvarado [facility] PANEL ESTIMATED GFR 2022-05-14 10:00:00 Lucy Alvarado Ho [facility] HEMOGLOBIN & HEMATOCRIT 2022-05-13 08:10:00 [facility]22-05-13 08:10:00 Lucy Alvarado [facility] PANEL ESTIMATED GFR 2022-05-13 08:10:00 Lucy Alvarado [facility] spital VANCOMYCIN LEVEL, TROUGH 2022-05-12 12:53:00 Gina Esparza [facility] 2022-05-12 09:27:00 Vu, Lucy Yen [facility] PANEL CBC WITH PLATELET AND 2022-05-12 09:27:00 Christiano Lucy Yen [facility] DIFFERENTIAL ESTIMATED GFR 2022-05-12 09:27:00 Lucy Alvarado spital XR KNEE 1 OR 2 VW RIGHT 2022-05-11 20:15[facility]00 [facility] [facility] 2022-05-11 19:53:00 Gina Esparza [facility] REQUEST MO AN ELECTIVE 2022-05-11 16:33:[address] [facility] ENDOTRACHEAL AIRWAY Sharath REVISION, ARTHROPLASTY, 2022-05-11 16:21:00 Clemente Shaffer [facility] KNEE POC GLUCOSE 2022-05-11 15:18:00 VilmaGina Alexi [facility] PROTHROMBIN TIME WITH 2022-05-11 09:20:00 Marcela Sena [facility] INR PARTIAL THROMBOPLASTIN 2022-05-11 09:20:00 MartensdaleMarcela [facility] TIME (PTT) SEDIMENTATION RATE 2022-05-11 09:20:00 MartensdaleTejaMarcela [facility] C-REACTIVE PROTEIN 2022-05-11 09:20:00 MartensdaleMarcela [facility] TYPE AND SCREEN 2022-05-11 09:20:00 [facility]-19 QUALITATIVE 2022-05-10 10:38:00 Marcela Sena [facility] RT-PCR CBC WITH PLATELET AND 2022-05-10 10:38:00 MartensdalePalmiraMarcela Jenniffer [facility] DIFFERENTIAL COMPREHENSIVE METABOLIC 2022-05-10 10:38:00 [facility] PANEL VANCOMYCIN LEVEL, RANDOM 2022-05-10 10:38:00 Gina Esparza [facility] ESTIMATED GFR 2022-05-10 10:38:00 [facility] CBC WITH PLATELET AND 2022-05-09 10:04:00 Martensdale [facility] DIFFERENTIAL COMPREHENSIVE METABOLIC 2022-05-09 10:04:00 [facility] PANEL ESTIMATED GFR 2022-05-09 10:04:00 [facility] CBC WITH PLATELET AND 2022-05-08 08:36:00 [facility] DIFFERENTIAL COMPREHENSIVE METABOLIC 2022-05-08 08:36:00 [facility] PANEL ESTIMATED GFR 2022-05-08 08:36:00 [facility] FUNGUS CULTURE 2022-05-08 08:31:00 [facility] FUNGUS SMEAR 2022-05-08 08:31:00 [facility] AEROBIC CULTURE 2022-05-08 08:23:00 [facility] GRAM STAIN 2022-05-08 08:23:00 [facility] JOINT FLUID CULTURE 2022-05-07 16:49:00 [facility] GRAM STAIN 2022-05-07 16:49:00 [facility] CELL COUNT AND 2022-05-07 16:49:00 [facility] DIFFERENTIAL, BODY FLUID LACTIC ACID LEVEL, 2022-05-06 08:38:00 Ebonie Varghese [facility] SEPSIS - NOW AND REPEAT 2X EVERY 3 HOURS CBC WITH PLATELET AND 2022-05-06 08:38:00 Lashawn Shaw [facility] DIFFERENTIAL COMPREHENSIVE METABOLIC 2022-05-06 08:38:00 Lashawn Shaw [facility] PANEL ESTIMATED GFR 2022-05-06 08:38:00 Lashawn Shaw spital LACTIC ACID LEVEL, 2022-05-06 04:26:00 [facility] SEPSIS - NOW AND REPEAT 2X EVERY 3 HOURS LACTIC ACID LEVEL, 2022-05-05 23:20:00 [facility] SEPSIS - NOW AND REPEAT 2X EVERY 3 HOURS PROCALCITONIN 2022-05-05 23:20:00 [facility] HEPATIC FUNCTION PANEL 2022-05-05 23:20:00 [facility] COVID-19 QUALITATIVE 2022-05-05 23:17:00 [facility] RT-PCR METHICILLIN-RESISTANT 2022-05-05 23:16:00 [facility] STAPHYLOCOCCUS AUREUS (MRSA), JACLYN AMMONIA LEVEL 2022-05-05 19:28:00 [facility]INE [facility] 2022-05-05 18:05:00 Kiley Rai [facility] spital URINALYSIS SCREEN AND 2022-05-05 18:05:00 [facility]Castillo [facility]CROS[facility], WITH REFLEX TO CULTURE XR KNEE 3 VW RIGHT 2022-05-05 16:36:00 Lester Jaime [facility] BLOOD CULTURE, AEROBIC & 2022-05-05 15:57:00 Kiley Rai [facility] ANAEROBIC BLOOD CULTURE, AEROBIC & 2022-05-05 15:52:00 Kiley Rai [facility] ANAEROBIC CBC WITH PLATELET AND 2022-05-05 15:52:00 [facility] DIFFERENTIAL BASIC METABOLIC PANEL 2022-05-05 15:52:00 Castillo [facility] PROTHROMBIN TIME WITH 2022-05-05 15:52:00 Rai, [facility] INR PARTIAL THROMBOPLASTIN 2022-05-05 15:52:00 [facility] TIME (PTT) SEDIMENTATION RATE 2022-05-05 15:52:00 [facility] C-REACTIVE PROTEIN 2022-05-05 15:52:00 [facility] TYPE AND SCREEN 2022-05-05 15:52:00 Castillo Raikrystalnanci [facility] spital ESTIMATED GFR 2022-05-05 15:52:00 Castillo Raikrystalnanci [facility]ital COMPREHENSIVE METABOLIC 2022-04-28 09:29:00 [facility] PANEL ESTIMATED GFR 2022-04-28 09:29:00 [facility] DURABLE MEDICAL 2022-04-27 14:55:14 Clemente Shaffer Shashi [facility] EQUIPMENT COMPREHENSIVE METABOLIC 2022-04-27 08:37:00 [facility] PANEL SEDIMENTATION RATE 2022-04-27 08:37:00 [facility] C-REACTIVE PROTEIN 2022-04-27 08:37:00 [facility] ESTIMATED GFR 2022-04-27 08:37:00 [facility] HEMOGLOBIN & HEMATOCRIT 2022-04-26 10:34:00 [facility] BASIC METABOLIC PANEL 2022-04-26 10:34:00 [facility] ESTIMATED GFR 2022-04-26 10:34:00 [facility] VANCOMYCIN LEVEL, TROUGH 2022-04-25 11:43:00 Shawanda Peña [facility] CBC WITH PLATELET AND 2022-04-25 11:43:00 Maxx Andrade [facility] DIFFERENTIAL HEMOGLOBIN & HEMATOCRIT 2022-04-25 08:58:00 [facility] BASIC METABOLIC PANEL 2022-04-25 08:58:00 [facility] ESTIMATED GFR 2022-04-25 08:58:00 [facility] AN[facility]-SPIKE 2022-04-24 18:50:00 [facility] IGG ANTIBODY TITER ZZCOVID-19 SEROLOGY 2022-04-24 18:50:00 [facility] PATIENT SURVEILLANCE XR PICC CHEST PORTABLE 2022-04-24 15:00:29 Deena Clemente [facility] PICC INSERTION REQUEST 2022-04-24 14:39:00 Lalitha Lu [facility] HEMOGLOBIN & HEMATOCRIT 2022-04-24 08:26:00 [facility] BASIC METABOLIC PANEL 2022-04-24 08:26:00 [facility] ESTIMATED GFR 2022-04-24 08:26:00 [facility] METHICILLIN-RESISTANT 2022-04-24 08:24:00 [facility] STAPHYLOCOCCUS AUREUS [place] (MRSA), JACLYN XR KNEE 1 OR 2 VW RIGHT 2022-04-23 22:12:00 [facility] POC GLUCOSE 2022-04-23 21:49:00 [facility] ANAEROBIC CULTURE 2022-04-23 20:35:00 [facility] FUNGUS CULTURE 2022-04-23 20:35:00 [facility] AFB CULTURE 2022-04-23 20:35:00 [facility] GRAM STAIN 2022-04-23 20:35:00 [facility] AFB STAIN 2022-04-23 20:35:00 [facility] TISSUE CULTURE 2022-04-23 20:35:00 [facility] MO AN ELECTIVE 2022-04-23 19:38:00 Chad Blackmon [facility] ENDOTRACHEAL AIRWAY REVISION, ARTHROPLASTY, 2022-04-23 19:26:00 [facility] KNEE ABO AND RH CONFIRMATION 2022-04-23 16:57:00 [facility] BY PROTOCOL TYPE AND SCREEN 2022-04-23 16:52:00 [facility] SURGICAL PATHOLOGY 2022-04-23 15:57:00 [facility] REQUEST CBC WITH PLATELET AND 2022-04-21 17:53:00 Sayra Villarreal Tani [facility] DIFFERENTIAL COMPREHENSIVE METABOLIC 2022-04-21 17:53:00 [facility] PANEL HEMOGLOBIN A1C 2022-04-21 17:53:00 [facility] ESTIMATED GFR 2022-04-21 17:53:00 [facility] COVID-19 QUALITATIVE 2022-04-21 17:33:00 Clemente Shaffer [facility] RT-PCR ECG PRE/POST OP 2022-04-21 17:16:00 [facility] COVID-19 ANTI-SPIKE IGG 2021-10-22 09:55:00 Titus Larios [facility] ANTIBODY TITER HC COMPLETE BLD COUNT 2021-10-22 09:55:00 [facility] W/AUTO DIFF BASIC METABOLIC PANEL 2021-10-22 09:55:00 [facility] HEPATIC FUNCTION PANEL 2021-10-22 09:55:00 [facility] MAGNESIUM LEVEL 2021-10-22 09:55:00 [facility] PHOSPHORUS LEVEL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 Orthopedics 63 [id number] [place] 15:00:00 15:00:00 t[facility] 2020-01-23 2020-01-23 [facility] [id number] [place] 00:00:00 00:00:00 CLEMENTE [address] 2020-01-08 2020-01-09 [facility] [id number] Memoria 18:06:00 16:58:00 Outpatient r [place] 34 l [facility] 2020-01-08 2020-01-08 Outpatient [facility] [id number] 12:06:00 12:06:00 Orthop e dic [facility] Hospita l 2020-01-08 2020-01-08 [facility] [id number] [place] 09:00:00 09:00:00 t; Josefina BROOKS [facility] jim SHAFFER M.D. 2019-12-29 2019-12-29 [facility] DEENA [facility] Orthopedics 62 [id number] [place] 09:45:00 09:45:00 t; [facility] 2019-12-23 2019-12-23 Outpatient nullFlavo [facility] After [id number] Memoria 01:05:00 05:59:59 r Hours Pod 21 l David 2019-12-01 2019-12-[address] [facility] Orthopedics 610 [id number] [place] 15:15:00 15:15:00 t; MARCELA SENA at [facility], LIYA fernandez [employer] [facility] 2019-11-20 2019-11-21 Outpatient nullFlavo [facility] Family 33 [id number] Memoria 17:00:00 05:59:59 r Medicine 20 l Purple Pod Mariajose nn 2019-11-13 2019-11-[address] [facility] Orthopedics 610 [id number] [place] 09:00:00 09:00:00 t; MARCELA SENA at [facility] Orthopedic [facility] Spine [facility] 2019-11-10 2019-11-[address] [facility] Orthopedics 598 [id number] [place] 14:30:00 14:30:00 t; MARCELA SENA, at [facility]ine [facility] 2019-11-03 2019-11-05 Phone nullFlavo [facility] Family [id number] Memoria 22:34:26 05:59:59 Message r Medicine 27 l Purple Pod Mariajose 2019-10-31 2019-10-31 Appointmen NATHENRUST [facility]opedics [id number] [place] 14:00:00 14:00:00 t; MARCELA SENA, [facility] Spine [facility] 2019-10-16 2019-10-18 Bedded [facility] [id number] Memoria 17:35:00 17:41:00 Outpatient r David 28 l Orthopedic [facility] 2019-10-16 2019-10-16 Outpatient [facility] [id number] 11:35:00 11:35:00 Orthop e dic and Spine Hospita l 2019-10-16 2019-10-16 Appointmen DEENARUST UTP [id number] 40 [place] 09:00:00 09:00:00 t; Jennifer BROOKS. [facility] jim SHAFFER M.D. 2019-10-11 2019-10-13 Phone nullFlavo [facility] [id number] Memoria 18:59:25 05:59:59 Message r Medicine 26 l [facility] Mariajose 2019-09-25 2019-09-26 Outpatient nullFlavo [facility] [id number] Memoria 15:00:00 05:59:59 r Multi-Speci 17 l alty Pod [place] 2019-09-25 2019-09-26 Outpatient nullFlavo [facility] Family 33 [id number] Memoria 14:40:00 05:59:59 r Medicine 18 l Purple Pod Mariajose 2019-09-21 2019-09-22 Outpatient [facility] [id number] Memoria 15:47:00 04:59:00 r David 27 l [facility]ose 2019-09-21 2019-09-21 Outpatient [facility] FB [id number] [facility] 10:47:00 10:47:00 2019-09-20 2019-09-[address] [facility] Orthopedics [id number] [place] 08:30:00 08:30:00 t; [facility] 2019-09-18 2019-09-20 Outside nullFlavo [facility] [id number] Memoria 18:30:55 04:59:59 Medical r Medicine 25 l Records Purple [facility] Mariajose 2019-09-12 2019-09-14 Outside nullFlavo [facility] [id number] Memoria 20:38:38 04:59:59 Medical r Medicine 24 l Records Purple Pod Mariajose 2019-09-10 2019-09-12 Inpatient [facility] [id number] [place] 00:00:00 00:00:00 LYNNETTE 429 Method i 2019-08-21 2019-08-22 Outpatient nullFlavo [facility] [id number] Memoria 15:40:00 04:59:59 r Gastroenter 19 l ology [facility] jenniffer [facility] 2019-08-14 2019-08-15 Outpatient nullFlavo [facility] 33 [id number] Memoria 13:40:00 04:59:59 r Medicine 16 l Purple Pod Mariajose 2019-07-31 2019-08-01 Outpatient nullFlavo [facility] [id number] Memoria 14:00:00 04:59:59 r Multi-Speci 15 l alty Pod David 2019-07-31 2019-08-01 Outpatient nullFlavo [facility] 33 [id number] Memoria 13:40:00 04:59:59 r Medicine 14 l Purple Pod Mariajose 2019-07-26 2019-07-28 Outside nullFlavo [facility] [id number] Memoria 13:26:19 04:59:59 Medical r Medicine 23 l Records Purple Pod Mariajose 2019-07-22 2019-07-24 Outpatient [facility] 2100 [id number] [place] 00:00:00 00:00:00 LYNNETTE 482 Method i 2019-07-21 2019-07-[address] [facility] [id number] 40 [place] 00:00:00 00:00:00 PRATEEK 871 Method i 2019-07-21 2019-07-21 Appointmen DEENARUST Orthopedics 56 [id number] [place] 13:00:00 13:00:00 t; [facility] 2019-06-16 2019-06-16 Appointmen DEENARUST Orthopedics [id number] [place] 10:00:00 10:00:00 t; [facility] Josefina [facility] 2019-06-12 2019-06-13 Outpatient nullFlavo [facility] [id number] Memoria 14:00:00 04:59:59 r Multi-Speci 12 l alty Pod [place] 2019-06-12 2019-06-13 Outpatient nullFlavo [facility] 33 [id number] Memoria 13:40:00 04:59:59 r Medicine 11 l Purple Pod Mariajose 2019-06-02 2019-06-03 Outpatient nullFlavo [facility] 33 [id number] Memoria 14:00:00 04:59:59 r Medicine 13 l Purple Pod Mariajose 2019-05-01 2019-05-03 Phone nullFlavo [facility] [id number] Memoria 16:27:29 04:59:59 Message r Medicine 22 l Green Pod [facility] 2019-05-01 2019-05-02 Outpatient nullFlavo [facility] [id number] Memoria 14:00:00 04:59:59 r Multi-Speci 10 l alty Pod [place] 2019-05-01 2019-05-02 Outpatient nullFlavo [facility] 33 [id number] Memoria 13:40:00 04:59:59 r Medicine 09 l Purple Pod Mariajose 2019-04-19 2019-04-21 Outside nullFlavo [facility] [id number] Memoria 14:56:15 04:59:59 Medical r Medicine 21 l Records Evans Pod Mariajose 2019-04-07 2019-04-09 Phone nullFlavo [facility] [id number] [id number] Memoria 18:27:08 04:59:59 Message r Medicine 20 l Purple Pod Mariajose 2019-03-20 2019-03-21 Outpatient nullFlavo [facility] [id number] Memoria 14:00:00 04:59:59 r Multi-Speci 08 l alty Pod [place] 2019-03-20 2019-03-21 Outpatient nullFlavo [facility] 33 [id number] Memoria 13:40:00 04:59:59 r Medicine 07 l Purple Pod Mariajose 2019-03-10 2019-03-12 Phone nullFlavo [facility] [id number] Memoria 17:53:00 04:59:59 Message r Medicine 19 l Purple Pod Mariaj[place] 2019-02-09 2019-02-11 Phone nullFlavo [facility] Family [id number] Memoria 21:47:00 04:59:59 Message r Medicine 18 l Purple Pod Mariajose 2019-02-09 2019-02-09 Ambulatory nullFlavo [facility] [id number] Memoria 13:00:00 13:00:00 Pre-Reg r Multi-Speci 05 l alty Pod [place] 2019-02-06 2019-02-08 Phone nullFlavo [facility] Family [id number] Memoria 20:53:00 04:59:59 Message r Medicine 17 l Purple Pod Mariajose 2019-02-03 2019-02-05 Phone nullFlavo [facility] Family [id number] Memoria 13:31:00 04:59:59 Message r Medicine 16 l Purple Pod Mariaj[place] 2019-02-02 2019-02-04 Phone nullFlavo [facility] [id number] Memoria 19:17:00 04:59:59 Message r Physicians 15 l at [facility] 2019-01-17 2019-01-17 Ambulatory nullFlavo [facility] [id number] Memoria 14:00:00 14:00:00 Pre-Reg r Physicians 06 l at [place] [facility] 2019-01-12 2019-01-14 Phone nullFlavo [facility] [id number] Memoria 20:43:00 05:59:59 Message r Physicians 14 l at [place] [facility] 2019-01-12 2019-01-14 Phone nullFlavo [facility] [id number] 55 Memoria 19:05:00 05:59:59 Message r Physicians 13 l at [place] [facility] 2019-01-12 2019-01-14 Phone nullFlavo [facility] [id number] Memoria 14:38:00 05:59:59 Message r Physicians 12 l at [place] [facility] 2019-01-03 2019-01-05 Phone nullFlavo [facility] [id number] Memoria 15:02:00 05:59:59 Message r Physicians 11 l at [place] Qu[place]ult 2018-12-30 2018-12-31 Outpatient nullFlavo [facility] Family 33 [id number] Memoria 15:40:00 05:59:59 r Medicine 04 l Purple Pod Mariajose 2018-11-03 2018-11-05 Outside nullFlavo [facility] Family [id number] Memoria 17:33:00 05:59:59 Medical r Medicine 10 l Records Purple Pod [facility]jose 2018-09-29 2018-10-01 Outside nullFlavo [facility] Family [id number] Memoria 19:10:00 05:59:59 Medical r Medicine 09 l Records Purple Pod Mariajose 2018-09-27 2018-09-28 Outpatient nullFlavo [facility] Family 33 [id number] Memoria 14:20:00 05:59:59 r Medicine 03 l Purple Pod Mariajose 2018-09-26 2018-09-28 Outside nullFlavo [facility] Family [id number] Memoria 16:30:00 05:59:59 Medical r Medicine 08 l Records Purple Pod Mariajose 2018-09-19 2018-09-21 Outside nullFlavo [facility] Family [id number] Memoria 18:32:00 04:59:59 Medical r Medicine 07 l Records [facility] 2018-09-19 2018-09-20 Outpatient nullFlavo [facility] Family 33 [id number] Memoria 13:20:00 04:59:59 r Medicine 02 l [facility] 2018-09-16 2018-09-18 Outside nullFlavo [facility] Family [id number] Memoria 11:56:00 04:59:59 Medical r Medicine 06 l Records [facility] 2018-09-13 2018-09-15 Outside nullFlavo [facility] Family [id number] Memoria 12:35:00 04:59:59 Medical r Medicine 05 l Records [facility] 2018-08-30 2018-09-01 Outside nullFlavo [facility] Family [id number] Memoria 15:16:00 04:59:59 Medical r Medicine 04 l Records [facility] 2018-08-24 2018-08-26 Outside nullFlavo [facility] Family [id number] Memoria 12:45:00 04:59:59 Medical r Medicine 03 l Records [facility] 2018-07-06 2018-07-06 Outpatient nullFlavo [facility] [id number] Memoria 01:00:00 04:59:59 r Physicians 01 l at [facility] 2018-05-31 2018-06-02 Outside nullFlavo [facility] [id number] Memoria 19:15:00 04:59:59 Medical r Physicians 02 l Records at [facility] 2018-05-26 2018-05-26 Appointstephanie TIARA, [facility] [id number] [place] 08:45:00 08:45:00 t; Casi JUNE M.D. ans CANDICE, M.D. 2018-05-17 2018-05-17 Appointmen TIARA, [facility] [id number] [place] 13:00:00 13:00:00 t; Casi JUNE M.D. ans CANDICE, M.D. 2018-05-04 2018-05-04 Appointmen TIARA, [facility] [id number] [place] 15:30:00 15:30:00 t; Casi JUNE M.D. ans CANDICE, M.D. 2018-04-21 2018-04-21 Appointmen TIARA, [facility] [id number] [place] 12:45:00 12:45:00 t; Casi JUNE M.D. ans CANDICE, M.D. 2018-04-13 2018-04-13 Appointmen TIARA, [facility] [id number] [place] 13:30:00 13:30:00 t; Casi JUNE M.D. ans CANDICE, M.D. 2018-04-05 2018-04-05 Appointmen TIARA, [facility] [id number] [place] 12:00:00 12:00:00 t; Casi JUNE M.D. ans CANDICE, M.D. 2018-03-17 2018-03-17 Appointmen TIARA, [facility] [id number] [place] 08:30:00 08:30:00 t; Casi JUNE M.D. ans CANDICE, M.D. 2018-02-24 2018-02-26 Outside nullFlavo [facility] [id number] Memoria 18:24:00 04:59:59 Medical r Physicians 01 l Records at [facility] 2018-02-23 2018-02-25 Phone nullFlavo [facility] [id number] Memoria 15:06:00 04:59:59 Message r Physicians 00 l at [facility] 2018-02-22 2018-02-22 Appointmen GREWLA ALTHEA [place] [id number] UT 08:00:00 08:00:00 t; PAUL GREWAL, Physi ci Josefina MILLER M.D. 2018-01-17 2018-01-18 Outpatient nullFlavo [facility] [id number] Memoria 14:55:00 05:59:59 r Physicians 00 l at [facility] 2017-04-15 2017-04-16 Outpatient nullFlavo [facility] [id number] Memoria 11:57:51 04:59:59 r [facility] [place] Results Test Description Test Time Test Comments Results Result Comments Source Urine culture 2023-04-05 01:56:00 Test Item Value Reference Range Interpretation Comme nts Urine culture (test code = 6771470) SEE COMMENT Bacteriuria screen negative. [facility] [place], [place] 12 [id number] 12:34:54 Test Item Value Reference Range Interpretation Comments Ventricular rate 105 (test code = 253) Atrial rate (test 105 code = 255) MO interval (test 136 code = 266) QRSD interval (test 84 code = 260) QT interval (test 440 code = 264) QTC interval (test 581 code = 265) QRS axis 1 (test -14 code = 268) T wave axis (test 60 code = 270) EKG impression (test Sinus tachycardia with code = 273) premature supraventricular complexes-Low voltage QRS-Cannot rule out Anterior infarct , age undetermined-Electronical ly Signed By Eduardo Kline MD (2024) on 04/03/2023 7:34:[address] [facility] [place] [place] ED Preliminary Interpretation - Not an [id number] 19:50:21 Test Item Value Reference Range Interpretation Comments SIGIFREDO (test code = SIGIFREDO) Power Killian MD 04/03/2023 1:58 [facility] ED Preliminary Interpretation - Not an Order Performed by: Power Killian MDAuthorized by: Power Killian MD ECG reviewed by ED Physician in the absence of a bakery decorator: yes Previous ECG: Previous ECG: UnavailableInterpretat ion: Interpretation: abnormal Rate: ECG rate: 105 ECG rate assessment: tachycardic Rhythm: Rhythm: sinus tachycardia Ectopy: Ectopy: PAC QRS: QRS axis: NormalConduction: Conduction: normal ST segments: ST segments: NormalT waves: T waves: normal Comments: Low voltage QRSCannot rule out anterior infarct, age undetermined. Lab Interpretation Abnormal (test code = 20765-2) [facility] [place] [place] 12 [id number] 14:50:43 Test Item Value Reference Range Interpretation Comments Ventricular rate (test 92 code = 253) Atrial rate (test code = 92 255) MO interval (test code = 150 266) QRSD interval (test code 100 = 260) QT interval (test code = 398 264) QTC interval (test code 492 = 265) P axis 1 (test code = 36 267) QRS axis 1 (test code = -21 268) T wave axis (test code = 19 270) EKG impression (test Normal sinus code = 273) rhythm-Low voltage QRS- [facility] [id number] 17:05:00 Test Item Value Reference Range Interpretation Comments POC glucose (test code 150 mg/dL 65-99 H [facility] tor Name: Hidalgo = 53961-2) TheresaDevice I D: [id number] able: RN Notified Lab Interpretation Abnormal (test code = 41306-6) [facility] [id number] 17:05:00 Test Item Value Reference Range Interpretation Comments POC glucose (test code 150 mg/dL 65-99 H [facility] tor Name: Hidalgo = 63091-4) TheresaDevice I D: [id number] able: RN Notified Lab Interpretation Abnormal (test code = 88104-4) [facility] [id number] 14:06:00 Test Item Value Reference Range Interpretation Comments Urine culture (test SEE COMMENT Bacteriu brandon screen code = 0498157) [facility] [Presence] in Respiratory specimen by JACLYN with probe [id number] 08:26:47 Test Item Value Reference Range Interpretation Comments SARS-CoV-2 (COVID-19) RNA Not detected [Presence] in Respiratory specimen by JACLYN with probe detection (test code = 53889-5) Whether patient is employed in a Unknown healthcare setting (test code = 51767-0) Whether the patient has symptoms Unknown related to condition of interest (test code = 94909-2) Whether the patient was Unknown hospitalized for condition of interest (test code = 38700-7) Whether the patient was admitted Unknown to intensive care unit (ICU) for condition of interest (test code = 30088-7) Whether patient resides in a Unknown congregate care setting (test code = 79843-1) status (test code = Unknown 24950-6) Date and time of symptom onset Unknown (test code = 96364-0) [facility]) RNA [Presence] in Respiratory specimen by JACLYN with probe [id number] 21:24:33 Test Item Value Reference Range Interpretation Comments SARS-CoV-2 (COVID-19) RNA Not detected [Presence] in Respiratory specimen by JACLYN with probe detection (test code = 77944-6) Whether patient is employed in a Unknown healthcare setting (test code = 08017-1) Whether the patient has symptoms Unknown related to condition of interest (test code = 53016-8) Whether the patient was Unknown hospitalized for condition of interest (test code = 70955-4) Whether the patient was admitted Unknown to intensive care unit (ICU) for condition of interest (test code = 09007-0) Whether patient resides in a Unknown congregate care setting (test code = 14872-3) status (test code = Unknown 65094-7) Date and time of symptom onset Unknown (test code = 46871-5) [facility] [id number] 14:20:00 Test Item Value Reference Range Interpretation Comments UA Color (test code = UA Color) YELLOW [facility] AND [id number] 14:20:00 Test Item Value Reference Range Interpretation Comments UA Turbidity (test code = UA CLOUDY Turbidity) [facility] AND [id number] 14:20:00 Test Item Value Reference Range Interpretation Comments UA Spec Grav (test code = UA Spec 1.010 1 1.001-1.035 Grav) [facility] AND [id number] 14:20:00 Test Item Value Reference Range Interpretation Comments UA pH (test code = UA pH) 6.0 1 5.0-8.0 [facility] [id number] 14:20:00 Test Item Value Reference Range Interpretation Comments UA Glucose (test code = UA Glucose) NEGATIVE [facility] [id number] 14:20:00 Test Item Value Reference Range Interpretation Comments UA Bili (test code = UA Bili) NEGATIVE [facility] [id number] 14:20:00 Test Item Value Reference Range Interpretation Comments UA Ketones (test code = UA Ketones) NEGATIVE [facility] [id number] 14:20:00 Test Item Value Reference Range Interpretation Comments UA Blood (test code = UA Blood) NEGATIVE [facility] [id number] 14:20:00 Test Item Value Reference Range Interpretation Comments UA Protein (test code = UA Protein) NEGATIVE [facility] [id number] 14:20:00 Test Item Value Reference Range Interpretation Comments UA Nitrite (test code = UA Nitrite) POSITIVE [facility] [id number] 14:20:00 Test Item Value Reference Range Interpretation Comments UA Leuk Est (test code = UA Leuk Est) 3+ [facility] [id number] 14:20:00 Test Item Value Reference Range Interpretation Comments UA WBC (test code = UA WBC) 10-20 [facility] [id number] 14:20:00 Test Item Value Reference Range Interpretation Comments UA RBC (test code = UA RBC) NONE [facility]EN [facility] [id number] 14:20:00 Test Item Value Reference Range Interpretation Comments UA Sq Epi (test code = UA Sq Epi) 0-5 [facility] [id number] 14:20:00 Test Item Value Reference Range Interpretation Comments UA Bacteria (test code = UA Bacteria) MANY [facility] [id number] 14:20:00 Test Item Value Reference Range Interpretation Comments UA Hyal Cast (test code = UA Hyal NONE SEEN Cast) [facility] [id number] 14:20:00 Test Item Value Reference Range Interpretation Comments UA Comment 2 (test code = UA SEE COMMENT Comment 2) [facility] [id number] 14:20:00 Test Item Value Reference Range Interpretation Comments UA Reflex (test code = UA Reflex) SEE COMMENT [facility] [id number] 13:36:00 Test Item Value Reference Range Interpretation Comments POC UA Color (test Yellow *NA*(07/29/22 8:36 code = POC UA Color) AM) [facility] [id number] 13:36:00 Test Item Value Reference Range Interpretation Comments POC UA Turbidity (test Clear *NA*(07/29/22 code = POC UA Turbidity) 8:36 AM) [facility] [id number] 13:36:00 Test Item Value Reference Range Interpretation Comments POC UA SG (test code = POC UA SG) 1.015 1 [facility] [id number] 13:36:00 Test Item Value Reference Range Interpretation Comments POC UA pH (test code = POC UA pH) 6.0 1 5.0-8.0 [facility] [id number] 13:36:00 Test Item Value Reference Range Interpretation Comments POC UA Prot (test code = POC Negative mg/dL UA Prot) [facility] [id number] 13:36:00 Test Item Value Reference Range Interpretation Comments POC UA Glu (test code = POC UA Negative mg/dL Glu) [facility] [id number] 13:36:00 Test Item Value Reference Range Interpretation Comments POC UA Ket (test code = POC UA Negative mg/dL Ket) [facility] [id number] 13:36:00 Test Item Value Reference Range Interpretation Comments POC UA Bili (test Negative *NA*(07/29/22 code = POC UA Bili) 8:36 AM) [facility] [id number] 13:36:00 Test Item Value Reference Range Interpretation Comments POC UA Bld (test code Trace *ABN*(07/29/22 8:36 = POC UA Bld) AM) [facility] [id number] 13:36:00 Test Item Value Reference Range Interpretation Comments POC UA Uro (test code = POC UA Uro) 0.2 0.1-1.0 [facility] [id number] 13:36:00 Test Item Value Reference Range Interpretation Comments POC UA Nit (test code Positive *ABN*(07/29/22 = POC UA Nit) 8:36 AM) [facility] AND [id number] 13:36:00 Test Item Value Reference Range Interpretation Comments POC UA LeukEst (test Moderate *ABN*(07/29/22 code = POC UA LeukEst) 8:36 AM) [facility]2022-08-26 16:12:00 Test Item Value Reference Range Interpretation Comments Ammonia (test code = Ammonia) 108 [facility]2022-08-26 16:12:00 Test Item Value Reference Range Interpretation Comments Glucose Lvl (test code = Glucose Lvl) 89 65-99 [facility]2022-08-26 16:12:00 Test Item Value Reference Range Interpretation Comments BUN (test code = BUN) 7 7- [facility]2022-08-26 16:12:00 Test Item Value Reference Range Interpretation Comments Creatinine Lvl (test code = Creatinine 0.56 0.70-1.28 Lvl) [facility]2022-08-26 16:12:00 Test Item Value Reference Range Interpretation Comments eGFR (test code = eGFR) 106 [facility]2022-08-26 16:12:00 Test Item Value Reference Range Interpretation Comments B/C Ratio (test code = B/C Ratio) 13 - [facility]2022-08-26 16:12:00 Test Item Value Reference Range Interpretation Comments Sodium Lvl (test code = Sodium Lvl) 141 135-146 [facility]2022-08-26 16:12:00 Test Item Value Reference Range Interpretation Comments Potassium Lvl (test code = Potassium 4.4 3.5-5.3 Lvl) [facility]2022-08-26 16:12:00 Test Item Value Reference Range Interpretation Comments Chloride Lvl (test code = Chloride Lvl) 105 98-110 [place] 091992-08-26 16:12:00 Test Item Value Reference Range Interpretation Comments CO2 (test code = CO2) 29 20-32 [facility]2022-08-26 16:12:00 Test Item Value Reference Range Interpretation Comments Calcium Lvl (test code = Calcium Lvl) 8.9 8.6-10.3 [place] 091992-08-26 16:12:00 Test Item Value Reference Range Interpretation Comments Total Protein (test code = Total 6.0 6.1-8.1 Protein) [facility]2022-08-26 16:12:00 Test Item Value Reference Range Interpretation Comments Albumin Lvl (test code = Albumin Lvl) 3.1 3.6-5.1 [place] 091992-08-26 16:12:00 Test Item Value Reference Range Interpretation Comments Globulin (test code = Globulin) 2.9 1.9-3.7 [facility]2022-08-26 16:12:00 Test Item Value Reference Range Interpretation Comments A/G Ratio (test code = A/G Ratio) 1.1 1.0-2.5 [place] 091992-08-26 16:12:00 Test Item Value Reference Range Interpretation Comments Bili Total (test code = Bili Total) 0.6 0.2-1.2 [facility]2022-08-26 16:12:00 Test Item Value Reference Range Interpretation Comments Alk Phos (test code = Alk Phos) 137 35-144 [facility]2022-08-26 16:12:00 Test Item Value Reference Range Interpretation Comments ASPARTATE TRANSAMINASE (test code = 36 10-35 ASPARTATE TRANSAMINASE) [facility]2022-08-26 16:12:00 Test Item Value Reference Range Interpretation Comments ALANINE AMINOTRANSFERASE (test code = 22 9-46 ALANINE AMINOTRANSFERASE) [id number] 16:12:00 Test Item Value Reference Range Interpretation Comments Sed Rate (test code = Sed Rate) 17 [facility]2022-07-15 00:14:00 Test Item Value Reference Range Interpretation Comments AFB culture No growth Specimen isolate (test after 6 weeks InformationSp ecimen code = 543-9) of Source: Tissue Specimen incubation. Site: Knee: rig ht knee synovial tissue [facility]2022-07-15 00:14:00 Test Item Value Reference Range Interpretation Comments AFB culture No growth Specimen isolate (test after 6 weeks InformationSp ecimen code = 543-9) of Source: Tissue Specimen incubation. Site: Knee: rig ht knee synovial tissue [facility]2022-07-15 00:14:00 Test Item Value Reference Range Interpretation Comments AFB culture No growth Specimen isolate (test after 6 weeks InformationSp ecimen code = 543-9) of Source: Tissue Specimen incubation. Site: Knee: rig [facility]t [facility] synovial [facility] [id number] 00:14:00 Test Item Value Reference Range Interpretation Comments AFB culture No growth Specimen isolate (test after 6 weeks InformationSp ecimen code = 543-9) of Source: Tissue Specimen incubation. Site: Knee: rig ht knee synovial tissue [facility] [id number] 00:14:00 Test Item Value Reference Range Interpretation Comments AFB culture No growth Specimen isolate (test after 6 weeks InformationSp ecimen code = 543-9) of Source: Tissue Specimen incubation. Site: Knee: rig ht knee synovial tissue [facility] [id number] 00:14:00 Test Item Value Reference Range Interpretation Comments AFB culture No growth Specimen isolate (test after 6 weeks InformationSp ecimen code = 543-9) of Source: Tissue Specimen incubation. Site: Knee: rig ht knee synovial tissue [facility] [id number] 00:14:00 Test Item Value Reference Range Interpretation Comments AFB culture No growth Specimen isolate (test after 6 weeks InformationSp ecimen code = 543-9) of Source: Tissue Specimen incubation. Site: Knee: rig ht knee synovial tissue [facility] [id number] 17:36:46 Test Item Value Reference Range Interpretation Comments Case number (test code = [id number]) Surgical pathology See link below for report (test code = PDF Lab Report 2255) Result status (test code This is Final Report = [id number]) for [id number] [facility] [id number] 17:36:46 Test Item Value Reference Range Interpretation Comments Case number (test code = [id number]) Surgical pathology See link below for report (test code = PDF Lab Report 2255) Result status (test code This is Final Report = [id number]) [facility] [id number] [facility] [id number] 17:36:46 Test Item Value Reference Range Interpretation Comments Case number (test code = [id number]) Surgical pathology See link below for report (test code = PDF Lab Report 2255) Result status (test code This is Final Report = [id number]) [address] [id number] 17:36:46 Test Item Value Reference Range Interpretation Comments Case number (test code = [id number]) Surgical pathology See link below for report (test code = PDF Lab Report 2255) Result status (test code This is Final Report = [id number]) [address] [id number] 17:36:46 Test Item Value Reference Range Interpretation Comments Case number (test code = [id number]) Surgical pathology See link below for report (test code = PDF Lab Report 2255) Result status (test code This is Final Report = [id number]) [address] [id number] 17:36:46 Test Item Value Reference Range Interpretation Comments Case number (test code = [id number]) Surgical pathology See link below for report (test code = PDF Lab Report 2255) Result status (test code This is Final Report = [id number]) [address] [id number] 17:36:46 Test Item Value Reference Range Interpretation Comments Case number (test code = [id number]) Surgical pathology See link below for report (test code = PDF Lab Report 2255) Result status (test code This is Final Report = [id number]) [address]-2 (COVID-19) RNA [Presence] in Respiratory specimen by JACLYN with probe [id number] 05:27:30 Test Item Value Reference Range Interpretation Comments SARS-CoV-2 (COVID-19) RNA Not detected [Presence] in Respiratory specimen by JACLYN with probe detection (test code = 74953-0) Whether patient is employed in a Unknown healthcare setting (test code = 80997-2) Whether the patient has symptoms Unknown related to condition of interest (test code = 11915-2) Whether the patient was Unknown hospitalized for condition of interest (test code = 67958-4) Whether the patient was admitted Unknown to intensive care unit (ICU) for condition of interest (test code = 78229-2) Whether patient resides in a Unknown congregate care setting (test code = 99406-8) status (test code = Unknown 56545-6) Date and time of symptom onset Unknown (test code = 57051-0) ISIDORO [facility] [id number] 15:29:00 Test Item Value Reference Range Interpretation Comments POC glucose (test 84 mg/dL 65-99 Associate [employer] Criminal [employer] N leonid: Hinds code = 39671-6) Keely Gilliland vice ID: [id number] [facility] [id number] 15:29:00 Test Item Value Reference Range Interpretation Comments POC glucose (test 84 mg/dL 65-99 Associate [employer] N leonid: Hinds code = 93762-5) Keely Gilliland vice ID: [id number] [facility] [id number] 15:29:00 Test Item Value Reference Range Interpretation Comments POC glucose (test 84 mg/dL 65-99 Associate [employer] N leonid: Hinds code = 46180-7) Keely Gilliland vice ID: [id number] [facility] [id number] 15:29:00 Test Item Value Reference Range Interpretation Comments POC glucose (test 84 mg/dL 65-99 Associate [employer] N leonid: Hinds code = 77184-3) Keely Gilliland vice ID: [id number] [facility] [id number] 15:29:00 Test Item Value Reference Range Interpretation Comments POC glucose (test 84 mg/dL 65-99 Associate [employer] N leonid: Hinds code = 59625-9) Keely Gilliland vice ID: [id number] [facility] RNA [Presence] in Respiratory specimen by JACLYN with probe [id number] 11:20:24 Test Item Value Reference Range Interpretation Comments SARS-CoV-2 (COVID-19) RNA Not detected [Presence] in Respiratory specimen by JACLYN with probe detection (test code = 14065-9) Whether patient is employed in a Unknown healthcare setting (test code = 61744-8) Whether the patient has symptoms Unknown related to condition of interest (test code = 97769-0) Whether the patient was Unknown hospitalized for condition of interest (test code = 10226-1) Whether the patient was admitted Unknown to intensive care unit (ICU) for condition of interest (test code = 19439-7) Whether patient resides in a Unknown congregate care setting (test code = 35378-3) status (test code = Unknown 62670-0) Date and time of symptom onset Unknown (test code = 33367-0) [facility]2022-06-17 16:34:00 Test Item Value Reference Range Interpretation Comments Gram stain No WBC's or Specimen isolate (test organisms seen. Information Specimen code = 1469) Source: [facility] Site: [facility]2022-06-17 16:34:00 Test Item Value Reference Range Interpretation Comments Gram stain No WBC's or Specimen isolate (test organisms seen. Information Specimen code = 1469) Source: [facility] Site: [facility]2022-06-17 16:34:00 Test Item Value Reference Range Interpretation Comments Gram stain No WBC's or Specimen isolate (test organisms seen. Information Specimen code = 1469) Source: [facility] Site: [facility]2022-06-17 16:34:00 Test Item Value Reference Range Interpretation Comments Gram stain No WBC's or Specimen isolate (test organisms seen. Information Specimen code = 1469) Source: [facility] Site: [facility]2022-06-17 16:34:00 Test Item Value Reference Range Interpretation Comments Gram stain No WBC's or Specimen isolate (test organisms seen. Information Specimen code = 1469) Source: [facility] Site: [facility]2022-06-17 16:34:00 Test Item Value Reference Range Interpretation Comments Gram stain No WBC's or Specimen isolate (test organisms seen. Information Specimen code = 1469) Source: [facility] Site: [facility]2022-06-17 16:34:00 Test Item Value Reference Range Interpretation Comments Gram stain No WBC's or Specimen isolate (test organisms seen. Information Specimen code = 1469) Source: [facility] Site: [facility]-CoV-2 (COVID-19) RNA [Presence] in Respiratory specimen by JACLYN with probe [id number] 01:50:33 Test Item Value Reference Range Interpretation Comments SARS-CoV-2 (COVID-19) RNA Not detected [Presence] in Respiratory specimen by JACLYN with probe detection (test code = 53821-4) Whether patient is employed in a Unknown healthcare setting (test code = 11683-5) Whether the patient has symptoms Unknown related to condition of interest (test code = 98123-6) Whether the patient was Unknown hospitalized for condition of interest (test code = 24763-2) Whether the patient was admitted Unknown to intensive care unit (ICU) for condition of interest (test code = 58636-3) Whether patient resides in a Unknown congregate care setting (test code = 38758-5) status (test code = Unknown 89091-5) Date and time of symptom onset Unknown (test code = 42889-6) [facility]O RU[facility] TerrySdizwo0304-62-32 16:33:57 Test Item Value Reference Range Interpretation Comments SUPPLIER NAME ([facility] code = 6415) SUPPLIER PHONE (test code = 6416) ORDER STATUS (test code Delivery Successful = 6417) DELIVERY NOTE (test code = 6419) REQUESTED DELIVEY DATE 04/27/2022 (test code = 6420) ITEM DESCRIPTION (test Rema Terry, Adult Qty: 1 code = 6423) EXPECTED DELIVERY DATE 04/27/2022 (test code = 6421) ACTUAL DELIVERY DATE 04/27/2022 (test code = 6422) [facility] Ybdatr2607-14-45 16:33:57 Test Item Value Reference Range Interpretation Comments SUPPLIER NAME ([facility] code = 6415) SUPPLIER PHONE (test code = 6416) ORDER STATUS (test code Delivery Successful = 6417) DELIVERY NOTE (test code = 6419) REQUESTED DELIVEY DATE 04/27/2022 (test code = 6420) ITEM DESCRIPTION (test Rema Terry, Adult Qty: 1 code = 6423) EXPECTED DELIVERY DATE 04/27/2022 (test code = 6421) ACTUAL DELIVERY DATE 04/27/2022 (test code = 6422) [facility]57 Test Item Value Reference Range Interpretation Comments SUPPLIER NAME (test [facility] [place] code = 6415) SUPPLIER PHONE (test code = 6416) ORDER STATUS (test code Delivery Successful = 6417) DELIVERY NOTE (test code = 6419) REQUESTED DELIVEY DATE 04/27/2022 (test code = 6420) ITEM DESCRIPTION (test Wheeled Walker, Adult Qty: 1 code = 6423) EXPECTED DELIVERY DATE 04/27/2022 (test code = 6421) ACTUAL DELIVERY DATE 04/27/2022 (test code = 6422) [facility]2022-06-06 16:33:57 Test Item Value Reference Range Interpretation Comments SUPPLIER NAME (test [facility] [place] code = 6415) SUPPLIER PHONE (test code = 6416) ORDER STATUS (test code Delivery Successful = 6417) DELIVERY NOTE (test code = 6419) REQUESTED DELIVEY DATE 04/27/2022 (test code = 6420) ITEM DESCRIPTION (test Wheeled Walker, Adult Qty: 1 code = 6423) EXPECTED DELIVERY DATE 04/27/2022 (test code = 6421) ACTUAL DELIVERY DATE 04/27/2022 (test code = 6422) [facility]2022-06-06 16:33:57 Test Item Value Reference Range Interpretation Comments SUPPLIER NAME (test [facility] [place] code = 6415) SUPPLIER PHONE (test code = 6416) ORDER STATUS (test code Delivery Successful = 6417) DELIVERY NOTE (test code = 6419) REQUESTED DELIVEY DATE 04/27/2022 (test code = 6420) ITEM DESCRIPTION (test Wheeled Walker, Adult Qty: 1 code = 6423) EXPECTED DELIVERY DATE 04/27/2022 (test code = 6421) ACTUAL DELIVERY DATE 04/27/2022 (test code = 6422) [facility]2022-06-06 16:33:57 Test Item Value Reference Range Interpretation Comments SUPPLIER NAME (test [facility] [place] code = 6415) SUPPLIER PHONE (test code = 6416) ORDER STATUS (test code Delivery Successful = 6417) DELIVERY NOTE (test code = 6419) REQUESTED DELIVEY DATE 04/27/2022 (test code = 6420) ITEM DESCRIPTION (test Wheeled Walker, Adult Qty: 1 code = 6423) EXPECTED DELIVERY DATE 04/27/2022 (test code = 6421) ACTUAL DELIVERY DATE 04/27/2022 (test code = 6422) Donita SternWheeled [id number] 16:33:57 Test Item Value Reference Range Interpretation Comments SUPPLIER NAME (test [facility] code = 6415) SUPPLIER PHONE (test code = 6416) ORDER STATUS (test code Delivery Successful = 6417) DELIVERY NOTE (test code = 6419) REQUESTED DELIVEY DATE 04/27/2022 (test code = 6420) ITEM DESCRIPTION (test Wheeled Walker, Adult Qty: 1 code = 6423) EXPECTED DELIVERY DATE 04/27/2022 (test code = 6421) ACTUAL DELIVERY DATE 04/27/2022 (test code = 6422) [facility]2022-06-06 12:45:00 Test Item Value Reference Range Interpretation Comments Anaerobic No anaerobic Specimen culture isolate organisms InformationS pecimen (test code = isolated. Source: TissueS pecimen 49897-9) Site: Knee: rig ht knee synovial tissue [facility]2022-06-06 12:45:00 Test Item Value Reference Range Interpretation Comments Anaerobic No anaerobic Specimen culture isolate organisms InformationS pecimen (test code = isolated. Source: TissueS pecimen 17727-4) Site: Knee: rig ht knee synovial tissue [facility]2022-06-06 12:45:00 Test Item Value Reference Range Interpretation Comments Anaerobic No anaerobic Specimen culture isolate organisms InformationS pecimen (test code = isolated. Source: TissueS pecimen 04471-5) Site: Knee: rig ht knee synovial tissue [facility]2022-06-06 12:45:00 Test Item Value Reference Range Interpretation Comments Anaerobic No anaerobic Specimen culture isolate organisms InformationS pecimen (test code = isolated. Source: TissueS pecimen 92004-6) Site: Knee: rig ht knee synovial tissue [facility]2022-06-06 12:45:00 Test Item Value Reference Range Interpretation Comments Anaerobic No anaerobic Specimen culture isolate organisms InformationS pecimen (test code = isolated. Source: TissueS pecimen 24829-1) Site: Knee: rig ht knee synovial tissue [facility] [id number] 12:45:00 Test Item Value Reference Range Interpretation Comments Anaerobic No anaerobic Specimen culture isolate organisms InformationS pecimen (test code = isolated. Source: TissueS pecimen 37070-2) Site: Knee: rig ht knee synovial tissue [facility] [id number] 12:45:00 Test Item Value Reference Range Interpretation Comments Anaerobic No anaerobic Specimen culture isolate organisms InformationS pecimen (test code = isolated. Source: TissueS pecimen 92551-1) Site: Knee: rig ht knee synovial tissue [facility] [id number] 11:56:00 Test Item Value Reference Range Interpretation Comments Tissue culture No growth Specimen isolate (test after 3 days. InformationSp ecimen code = 55415-1) Source: Tiss ueSpecimen Site: Knee: rig ht knee synovial tissue [facility] [id number] 11:56:00 Test Item Value Reference Range Interpretation Comments Tissue culture No growth Specimen isolate (test after 3 days. InformationSp ecimen code = 60032-1) Source: Tiss ueSpecimen Site: Knee: rig ht knee synovial tissue [facility] [id number] 11:56:00 Test Item Value Reference Range Interpretation Comments Tissue culture No growth Specimen isolate (test after 3 days. InformationSp ecimen code = 64214-6) Source: Tiss ueSpecimen Site: Knee: rig ht knee synovial tissue [facility] [id number] 11:56:00 Test Item Value Reference Range Interpretation Comments Tissue culture No growth Specimen isolate (test after 3 days. InformationSp ecimen code = 85057-6) Source: Tiss ueSpecimen Site: Knee: rig ht knee synovial tissue [facility] [id number] 11:56:00 Test Item Value Reference Range Interpretation Comments Tissue culture No growth Specimen isolate (test after 3 days. InformationSp ecimen code = 90837-0) Source: Tiss ueSpecimen Site: Knee: rig ht knee synovial tissue [facility] [id number] 11:56:00 Test Item Value Reference Range Interpretation Comments Tissue culture No growth Specimen isolate (test after 3 days. InformationSp ecimen code = 66375-6) Source: [facility] Site: Knee: rig ht knee synovial tissue [facility] [id number] 11:56:00 Test Item Value Reference Range Interpretation Comments Tissue culture No growth Specimen isolate (test after 3 days. InformationSp ecimen code = 11482-6) Source: [facility] Site: Knee: rig ht knee synovial tissue Alevism [facility] [id number] 18:52:00 Test Item Value Reference Range Interpretation Comments AFB stain No acid fast Specimen (test code = bacilli (AFB) InformationSpe cimen 676-7) seen. Source: [facility] Site: Knee: rig knee synovial tissue [facility] [id number] 18:52:00 Test Item Value Reference Range Interpretation Comments AFB stain No acid fast Specimen (test code = bacilli (AFB) InformationSpe cimen 676-7) seen. Source: [facility] Site: Knee: [facility] knee synovial tissue [facility] [id number] 18:52:00 Test Item Value Reference Range Interpretation Comments AFB stain No acid fast Specimen (test code = bacilli (AFB) InformationSpe cimen 676-7) seen. Source: [facility] Site: Knee: rig knee synovial tissue [facility] [id number] 18:52:00 Test Item Value Reference Range Interpretation Comments AFB stain No acid fast Specimen (test code = bacilli (AFB) InformationSpe cimen 676-7) seen. Source: [facility] Site: Knee: rig knee synovial tissue [facility] [id number] 18:52:00 Test Item Value Reference Range Interpretation Comments AFB stain No acid fast Specimen (test code = bacilli (AFB) InformationSpe cimen 676-7) seen. Source: [facility] Site: Knee: rig knee synovial tissue [facility] [id number] 18:52:00 Test Item Value Reference Range Interpretation Comments AFB stain No acid fast Specimen (test code = bacilli (AFB) InformationSpe cimen 676-7) seen. Source: [facility] Site: Knee: rig ht knee synovial tissue [facility] [id number] 18:52:00 Test Item Value Reference Range Interpretation Comments AFB stain No acid fast Specimen (test code = bacilli (AFB) InformationSpe joyen 676-7) seen. [facility] Knee: rig ht knee synovial tissue [facility] [place] [place] Pre/Post [id number] 04:23:31 Test Item Value Reference Range Interpretation Comments Ventricular rate (test code = 253) Atrial rate (test code = 255) MO interval (test code = 266) QRSD interval (test code = 260) QT interval (test code = 264) QTC interval (test code = 265) P axis 1 (test code = 267) QRS axis 1 (test code = 268) T wave axis (test code = 270) EKG impression (test Normal sinus code = 273) rhythm-Normal ECG-In automated comparison with ECG of 20-OCT-2021 05:46,-No significant change was found- [facility] [place] Pre/Post [id number] 04:23:31 Test Item Value Reference Range Interpretation Comments Ventricular rate (test code = 253) Atrial rate (test code = 255) MO interval (test code = 266) QRSD interval (test code = 260) QT interval (test code = 264) QTC interval (test code = 265) P axis 1 (test code = 267) QRS axis 1 (test code = 268) T wave axis (test code = 270) EKG impression (test Normal sinus code = 273) rhythm-Normal ECG-In automated comparison with ECG of 20-OCT-2021 05:46,-No significant change was found- [facility] [place], [place] Pre/Post [id number] 04:23:31 Test Item Value Reference Range Interpretation Comments Ventricular rate (test 61 code = 253) Atrial rate (test code 61 = 255) MO interval (test code 172 = 266) QRSD interval (test 102 code = 260) QT interval (test code 426 = 264) QTC interval (test code 428 = 265) P axis 1 (test code = 35 267) QRS axis 1 (test code = -18 268) T wave axis (test code 35 = 270) EKG impression (test Normal sinus code = 273) rhythm-Normal ECG-In automated comparison with ECG of 20-OCT-2021 05:46,-No significant change was found- [facility] [place] Pre/Post [id number] 04:23:31 Test Item Value Reference Range Interpretation Comments Ventricular rate (test 61 code = 253) Atrial rate (test code 61 = 255) MO interval (test code 172 = 266) QRSD interval (test 102 code = 260) QT interval (test code 426 = 264) QTC interval (test code 428 = 265) P axis 1 (test code = 35 267) QRS axis 1 (test code = -18 268) T wave axis (test code 35 = 270) EKG impression (test Normal sinus code = 273) rhythm-Normal ECG-In automated comparison with ECG of 20-OCT-2021 05:46,-No significant change was found- [facility] [place] Pre/Post [id number] 04:23:31 Test Item Value Reference Range Interpretation Comments Ventricular rate (test 61 code = 253) Atrial rate (test code 61 = 255) MO interval (test code 172 = 266) QRSD interval (test 102 code = 260) QT interval (test code 426 = 264) QTC interval (test code 428 = 265) P axis 1 (test code = 35 267) QRS axis 1 (test code = -18 268) T wave axis (test code 35 = 270) EKG impression (test Normal sinus code = 273) rhythm-Normal ECG-In automated comparison with ECG of 20-OCT-2021 05:46,-No significant change was found- [facility] [place] [place] Pre/Post [id number] 04:23:31 Test Item Value Reference Range Interpretation Comments Ventricular rate (test 61 code = 253) Atrial rate (test code 61 = 255) MO interval (test code 172 = 266) QRSD interval (test 102 code = 260) QT interval (test code 426 = 264) QTC interval (test code 428 = 265) P axis 1 (test code = 35 267) QRS axis 1 (test code = -18 268) T wave axis (test code 35 = 270) EKG impression (test Normal sinus code = 273) rhythm-Normal ECG-In automated comparison with ECG of 20-OCT-2021 05:46,-No significant change was found- [facility] [place] Pre/Post [id number] 04:23:31 Test Item Value Reference Range Interpretation Comments Ventricular rate (test code = 253) Atrial rate (test code = 255) MO interval (test code = 266) QRSD interval (test code = 260) QT interval (test code = 264) QTC interval (test code = 265) P axis 1 (test code = 267) QRS axis 1 (test code = 268) T wave axis (test code = 270) EKG impression (test Normal sinus code = 273) rhythm-Normal ECG-In automated comparison with ECG of 20-OCT-2021 05:46,-No significant change was found[facility] [Presence] in Respiratory specimen by JACLYN with probe [id number] 17:35:48 Test Item Value Reference Range Interpretation Comments SARS-CoV-2 (COVID-19) RNA Not detected [Presence] in Respiratory specimen by JALCYN with probe detection (test code = 18442-3) Whether patient is employed in a Unknown healthcare setting (test code = 26513-4) Whether the patient has symptoms Unknown related to condition of interest (test code = 55031-9) Whether the patient was Unknown hospitalized for condition of interest (test code = 16092-7) Whether the patient was admitted Unknown to intensive care unit (ICU) for condition of interest (test code = 25168-4) Whether patient resides in a Unknown congregate care setting (test code = 22626-6) status (test code = Unknown 56454-5) Date and time of symptom onset Unknown (test code = 59185-2) [facility] [id number] 12:33:00 Test Item Value Reference Range Interpretation Comments Lactic Acid Lvl (test code = Lactic 1.2 0.5-2.2 Acid Lvl) [facility]2022-05-30 09:30:00 Test Item Value Reference Range Interpretation Comments Crystal BF Type (test Synovial (04/20/22 4:30 code = Crystal BF AM) Type) [facility]2022-05-30 09:30:00 Test Item Value Reference Range Interpretation Comments Crystal BF (test code Negative (04/20/22 4:30 = Crystal BF) AM) [facility]2022-05-30 09:30:00 Test Item Value Reference Range Interpretation Comments RBC BF (test code = RBC BF) [address]62 [facility]2022-05-30 09:30:00 Test Item Value Reference Range Interpretation Comments Nucleated Cells BF (test code = 87150 Nucleated Cells BF) [facility]2022-05-30 09:30:00 Test Item Value Reference Range Interpretation Comments Neutrophils BF (test code = Neutrophils 89 BF) [facility]2022-05-30 09:30:00 Test Item Value Reference Range Interpretation Comments Lymph BF (test code = Lymph BF) 6 [facility]2022-05-30 09:30:00 Test Item Value Reference Range Interpretation Comments Macrophage BF (test code = Macrophage 5 BF) [facility]2022-05-30 09:30:00 Test Item Value Reference Range Interpretation Comments Color BF (test code = Yellow (04/20/22 4:30 Color BF) AM) [facility]2022-05-30 09:30:00 Test Item Value Reference Range Interpretation Comments Clarity BF (test code Moderate Cloudy = Clarity BF) *ABN*(04/20/22 4:30 AM) [facility]2022-05-30 09:30:00 Test Item Value Reference Range Interpretation Comments Supernat BF (test code = Yellow *ABN*(04/20/22 Supernat BF) 4:30 AM) [facility]2022-05-30 09:30:00 Test Item Value Reference Range Interpretation Comments CellCnt BF Type (test Synovial (04/20/22 4:30 code = CellCnt BF AM) Type) [facility] Stain [id number] 09:30:00 Test Item Value Reference Range Interpretation Comments Gram Stain Report Many WBC's No Organisms (test code = Gram Seen Stain Report) [place]1992-05-30 08:27:00 Test Item Value Reference Range Interpretation Comments Glucose Lvl (test code = Glucose Lvl) 120 70-99 [place] 091992-05-30 08:27:00 Test Item Value Reference Range Interpretation Comments BUN (test code = BUN) 13 7-22 [place] 091992-05-30 08:27:00 Test Item Value Reference Range Interpretation Comments Creatinine Lvl (test code = Creatinine 0.65 0.50-1.40 Lvl) [facility]2022-05-30 08:27:00 Test Item Value Reference Range Interpretation Comments Sodium Lvl (test code = Sodium Lvl) 140 135-145 [facility]2022-05-30 08:27:00 Test Item Value Reference Range Interpretation Comments Potassium Lvl (test code = Potassium 4.0 3.5-5.1 Lvl) [facility]2022-05-30 08:27:00 Test Item Value Reference Range Interpretation Comments Chloride Lvl (test code = Chloride Lvl) 108 95-109 [facility]2022-05-30 08:27:00 Test Item Value Reference Range Interpretation Comments CO2 (test code = CO2) 27 24-32 [place] 091992-05-30 08:27:00 Test Item Value Reference Range Interpretation Comments Calcium Lvl (test code = Calcium Lvl) 9.1 8.5-10.5 [facility]2022-05-30 08:27:00 Test Item Value Reference Range Interpretation Comments AGAP (test code = AGAP) 9.0 10.0-20.0 [place] 091992-05-30 08:27:00 Test Item Value Reference Range Interpretation Comments eGFR (test code = eGFR) 99 [facility]gl[facility]lfGHGTGB[facility]OUF3027-27-03 08:27:00 Test Item Value Reference Range Interpretation Comments WBC (test code = WBC) 11.8 3.7-10.4 [place] 932942-05-30 08:27:00 Test Item Value Reference Range Interpretation Comments RBC (test code = RBC) 4.49 4.70-6.10 [place] [address]-05-30 08:27:00 Test Item Value Reference Range Interpretation Comments Hgb (test code = Hgb) 14.9 14.0-18.0 [place] [address]-05-30 08:27:00 Test Item Value Reference Range Interpretation Comments Hct (test code = Hct) 44.1 42.0-54.0 [place] [address]-05-30 08:27:00 Test Item Value Reference Range Interpretation Comments MCV (test code = MCV) 98.3 80.0-94.0 [place] [address]-05-30 08:27:00 Test Item Value Reference Range Interpretation Comments MCH (test code = MCH) 33.2 pg 27.0-31.0 [place] [address]-05-30 08:27:00 Test Item Value Reference Range Interpretation Comments MCHC (test code = MCHC) 33.8 32.0-36.0 [id number] 08:27:00 Test Item Value Reference Range Interpretation Comments RDW (test code = RDW) 13.5 11.5-14.5 [place] [address]-05-30 08:27:00 Test Item Value Reference Range Interpretation Comments Platelet (test code = Platelet) 152 133-450 [facility]OfsirkfYHBQAQRMVG4231-21-39 08:27:00 Test Item Value Reference Range Interpretation Comments MPV (test code = MPV) 9.8 7.4-10.4 [place] [address]-05-30 08:27:00 Test Item Value Reference Range Interpretation Comments PT (test code = PT) 13.7 s 12.0-14.7 [place] [address]-05-30 08:27:00 Test Item Value Reference Range Interpretation Comments INR (test code = INR) 1.06 1 0.85-1.17 [place] [address]-05-30 08:27:00 Test Item Value Reference Range Interpretation Comments PTT (test code = PTT) 23.6 s 22.9-35.8 [place] [address]-05-30 08:27:00 Test Item Value Reference Range Interpretation Comments RBC Morph (test code = Normal (04/20/22 3:27 RBC Morph) AM) [facility]PpkpjibLXJIGLQWRI9506-42-30 08:27:00 Test Item Value Reference Range Interpretation Comments Plt Morph (test code = Normal (04/20/22 3:27 Plt Morph) AM) [place] [address]-05-30 08:27:00 Test Item Value Reference Range Interpretation Comments Segs (test code = Segs) 85.9 45.0-75.0 [place] 932942-05-30 08:27:00 Test Item Value Reference Range Interpretation Comments Lymphocytes (test code = Lymphocytes) 8.1 20.0-40.0 [place] [address]-05-30 08:27:00 Test Item Value Reference Range Interpretation Comments Monocytes (test code = Monocytes) 5.5 2.0-12.0 [place] [address]-05-30 08:27:00 Test Item Value Reference Range Interpretation Comments Eosinophils (test code = 0.1 See_Comment [A utomated message] The Eosinophils) system which ge nerated this result tra nsmitted reference range : <=4.0. The reference r sabino was not used to int erpret this result as normal/abnormal . [facility] ArlingtonBavbmncPYBXQDHRAK0254-33-89 08:27:00 Test Item Value Reference Range Interpretation Comments Basophils (test code = 0.4 See_Comment [Aut omated message] The Basophils) system which ge nerated this result tra nsmitted reference range : <=1.0. The reference r sabino was not used to int erpret this result as normal/abnormal . [facility] ArlingtonTspldizNVMSLXRNCL7806-17-48 08:27:00 Test Item Value Reference Range Interpretation Comments Neutrophils # (test code = Neutrophils 10.1 1.5-8.1 #) [place] [address]-05-30 08:27:00 Test Item Value Reference Range Interpretation Comments Lymphocytes # (test code = Lymphocytes 1.0 1.0-5.5 #) [place] [address]-05-30 08:27:00 Test Item Value Reference Range Interpretation Comments Monocytes # (test code 0.6 See_Comment [Aut omated message] The = Monocytes #) system which generated this result tra nsmitted reference range : <=0.8. The reference r sabino was not used to int erpret this result as normal/abnormal . [facility] AmericaYuzhduyEOMFUIYCIO4919-68-52 08:27:00 Test Item Value Reference Range Interpretation Comments Toxic Gran (test code = Toxic Gran) Slight [facility] AmericaQmmkpcwGFHLUTFCBF3906-47-06 08:27:00 Test Item Value Reference Range Interpretation Comments C-REACTIVE PROTEIN (test code = 9.0 C-REACTIVE PROTEIN) [facility] METABOLIC [id number] 04:05:00 Test Item Value Reference Range Interpretation Comments SODIUM (test code = 145 mmol/L 136-145 N NA) POTASSIUM (test code = 3.5 mmol/L 3.5-5.1 N K) CHLORIDE (test code = 115 mmol/L 98-113 H CL) CARBON DIOXIDE (test 22 mmol/L 21-32 N code = CO2) GLUCOSE (test code = 119 mg/dL 65-99 H GLU) BLOOD UREA NITROGEN 12 mg/dL 7-18 N (test code = BUN) GLOMERULAR FILTRATION 142 Report ing units: RATE (test code = GFR) ml/mi n/1.73m\\S\\2 (Modified MDRD Formula)If age < 18 years, GFR is n ot applicable. KD/ DOQI Clinical Practi ce Guidelines: Sta ge 1: Kidney damage w/normal or inc reased GFR >90Stage 2: Kidney damage w /mild decrease in GFR 60 - 89Stage 3: Mode rate decrease in GFR 30 - 59Stage 4: Imelda re decrease in GFR 15 - 29Stage 5: Kidn ey failure < 15 (o r dialysis) CREATININE (test code 0.6 mg/dL 0.6-1.0 N = CREAT) CALCIUM (test code = 8.8 mg/dL 7.8-10.9 N CA) HEPATIC FUNCTION [id number] 04:05:00 Test Item Value Reference Range Interpretation Comments TOTAL PROTEIN (test 5.9 g/dL 6.4-8.2 L code = PROT) ALBUMIN (test code = 2.7 g/dL 3.4-5.0 L ALB) GLOBULIN (test code = 3.2 gm/dL 2.3-3.5 N GLOB) ALBUMIN/GLOBULIN 0.8 1.5-2.2 L RATIO (test code = A/G) BILIRUBIN TOTAL (test 1.3 mg/dL 0.0-1.1 H code = BILT) BILIRUBIN DIRECT 0.4 mg/dL 0.05-0.3 H (test code = BILD) BILIRUBIN INDIRECT 0.9 mg/dL 0.0-0.6 H (test code = BILIND) SGOT/AST (test code = 88 U/L 15-37 H Report ing units: AST) International U nits/L SGPT/ALT (test code = 63 U/L 10-30 H Report ing units: ALT) International U nits/L ALKALINE PHOSPHATASE 113 U/L 45-117 N TOTAL (test code = ALKP) [id number] 04:05:00 Test Item Value Reference Range Interpretation Comments MAGNESIUM (test code = MAG) 1.9 mg/dL 1.5-2.1 N [id number] 03:48:00 Test Item Value Reference Range Interpretation Comments AMMONIA (test code = AMM) 96 umol/L 11-32 H LACTIC [id number] 03:48:00 Test Item Value Reference Range Interpretation Comments LACTIC ACID (test code = LACT) 1.90 mmol/L 0.4-2.0 N CBC W/O [id number] 03:18:00 Test Item Value Reference Range Interpretation Comments WHITE BLOOD CELL (test code = WBC) 7.5 K/mm3 4.8-10.8 N RED BLOOD CELL (test code = RBC) 4.16 M/mm3 4.2-5.4 L HEMOGLOBIN (test code = HGB) 13.8 gm/DL 13.5-17.5 N HEMATOCRIT (test code = HCT) 41.8 % 37.1-51.5 N MEAN CELL VOLUME (test code = MCV) 100.5 fL 81-99 H MEAN CELL HGB (test code = MCH) 33.2 pg 27-31 H MEAN CELL HGB CONCETRATION (test 33.0 gm/dL 33-37 N code = MCHC) RED CELL DISTRIBUTION WIDTH (test 13.3 % 11.5-14.5 N code = RDW) PLATELET COUNT (test code = PLT) 164 X10(3) 130-400 N MEAN PLATELET VOLUME (test code = 10.6 fL 9.4-12.4 N MPV) LACTIC [id number] 00:11:00 Test Item Value Reference Range Interpretation Comments LACTIC ACID (test code = LACT) 2.70 mmol/L 0.4-2.0 LACTIC [id number] 20:56:00 Test Item Value Reference Range Interpretation Comments LACTIC ACID (test code = LACT) 2.40 mmol/L 0.4-2.0 LACTIC [id number] 17:12:00 Test Item Value Reference Range Interpretation Comments LACTIC ACID (test code = LACT) 2.90 mmol/L 0.4-2.0 LACTIC [id number] 14:11:00 Test Item Value Reference Range Interpretation Comments LACTIC ACID (test 3.10 mmol/L 0.4-2.0 HH RESULTS CA LLED TO code = LACT) MATT SEAMAN AT 1409 03/21/22.Aliyah DormanndaC RITICAL VALUE R EAD BACK BY NURSE Staci CANO VERIFIED BY LANRE H? Y [id number] 13:59:00 Test Item Value Reference Range Interpretation Comments AMMONIA (test code = AMM) 67 umol/L 11-32 H LACTIC [id number] 09:47:00 Test Item Value Reference Range Interpretation Comments LACTIC ACID (test 3.70 mmol/L 0.4-2.0 HH RESULTS CA LLED TO code = LACT) MATT GLASS AT 0947 03/21/22.Adonay Dorman RITICAL VALUE R EAD BACK BY NURSE Staci CANO VERIFIED BY LANRE H? Y - US ABDOMEN [id number] 08:37:00 [facility] 1950 Sex: M [place]: [address]: ADM Name:JOSEF VEGA [facility] : 1950 Age/S: 71/M [address] Unit #: [id number] Loc: [place], [place] [address] Phys: Den Mello MD Acct: [id number] Dis Date: Status: ADM IN PHONE #: [phone] Exam Date: 03/21/2022 0404 FAX #: [phone] Reason: TRANSAMINI TIS EXAMS: CPT CODE: [id number] US ABDOMEN LTD 13676 This is a nondiagnostic limited ultrasound abdomen study. Study is limited due to poor penetration, overlying bowel gas and body habitus. Short-term repeat ultrasound could be obtained. at 0837 Reported and signed by: LUIS LANDAVERDE M.D. Facility [facility] Accreditation for Ultrasound - December 2011 CC: Den Mello MD; Zach West NP Technologist: MANNY RAY RDMS Transcribed Date/Time/By: 03/21/2022 (0837) : By: [email or web address] Orig Print D/T: S: 03/21/2022 (0840) PAGE 1 Signed Report- XR CHEST 1 V 2022-03-21 08:35:00 [facility] : 1950 Sex: M FAX:Den Mello MD [phone] Camps: ER St: ADM FAX: Zach Wets NP Name: JOSEF VEGA [facility] : 1950 Age/S: 71/M [address] [facility] Unit #: [id number] Loc: [place], [place] [address] Phys: Den Mello MD Acct: [id number] Dis Date: Status: ADM IN PHONE #: [phone] Exam Date: 03/21/2022 0403 FAX #: [phone] Reason: SOB EXAMS: CPT CODE: [id number] XR CHEST 1 V 73464 SINGLE VIEWCHEST INDICATION: SOB COMPARISON: None. FINDINGS: Frontal view of the chest demonstrates prominent ce ntral pulmonary vasculature and borderline enlarged cardiac silhouette. Right basilar lucency is felt to represent air under atelectasis rather than pneumoperitoneum. No consolidation is noted. Elevation of the right hemidiaphragm is noted. No large pleural effusions or pneumothorax is identified. IMPRESSION: 1. Right basilar lucency is felt to represent air under atelectasis rather than pneumoperitoneum. Recommend repeat semiupright chest radiograph. 2. Prominent central pulmonary vasculature. at 0835 Reported and signed by: LUIS LANDAVERDE M.D. CC: Den Mello MD; Zach West NP Technologist: WILLIS ROSALES JR RT(R) Transcribed Date/Time/By: 03/21/2022 (0835) :[email or web address] Orig Print D/T: S: 03/21/2022 (0838) Automated exposure control, iterative reconstruction technique, and/oradjustment of mA and/or kV according to patient's size was uti lizedfor optimum radiation dose reduction. PAGE 1 Signed ReportLIPID PROFILE (CORONARY RISK)2022-03-21 06:43:00 Test Item Value Reference Range Interpretation Comments TRIGLYCERIDES (test code 56 mg/dL 30-200 N = TRIG) CHOLESTEROL (test code = 116 mg/dL 120-200 L CHOL) CHOLESTEROL/HDL RATIO 2.1 4.4-5.0 L (test code = CHOLHDL) HDL CHOLESTEROL (test 55 mg/dL 35-60 N code = HDL) LIPOPROTEIN LDL (test 56 mg/dl 0-130 N LDL code = LDLC) REFERENCE<10 0 mg/dl---------O ptim us749-335 mg/dl------Near optimal/above eyvvhqi403-915 mg/dl------Bord erli ne hypl575-741 mg/dl------High >190 mg/dl---------V maylin High LIPOPROTEIN VLDL (test 11.2 mg/dL 6-40 N code = VLDL) NT PRO-BRAIN NATRIURETIC [id number] 06:43:00 Test Item Value Reference Range Interpretation Comments NT PRO-BRAIN NATRIURETIC PEPTI (test 29 pg/mL 0-125 N code = PROBNP) [id number] 06:17:00 Test Item Value Reference Range Interpretation Comments AMMONIA (test code = AMM) 170 umol/L 11-32 H LACTIC [id number] 06:17:00 Test Item Value Reference Range Interpretation Comments LACTIC ACID (test code = LACT) 2.80 mmol/L 0.4-2.0 HH - CTA [id number] 02:42:00 [facility] : 1950 Sex: M [address]: [facility] St: REG -- Name: OLMAN VEGA [facility] : 1950 Age/S: 71/M [address] Unit #: [id number] Loc: [place], [place] [address] Phys: JavierEver DO Acct: [id number] DisDate: Status: REG ER PHONE #: [phone] Exam Date: 03/21/2022222 FAX #: [phone] Reason: AMS CTDI: DLP: Automated exposure control, iterative reconstruction technique, and/oradjustment of mA and/or kV according to patient's size was utilized fooptimum radiation dose reduction. EXAMS: CPT CODE: [id number] CTA NECK 66267 EXAM: - CTA HEAD, - CTA NECK LOCATION: H57 HISTORY: AMS TECHNIQUE: CTA head: Axial CT images were obtained from the skull base to the vertex after intravenous contrast utilizing CTA protocol. Coronal and sagittal maximum intensity projection images are provided. CTA neck: Axial CT images were obtained from the aortic arch to the skull base after intravenous contrast utilizing CTA protocol. Coronal and sagittal maximum intensity projection images are provided. This exam was performed according to our departmental dose- optimization program, which includes automated exposure control, adjustment of the mA and/or kV according to patient size and/or use of iterative reconstru ction technique COMPARISON: None available time of interpretation. FINDINGS: For the purposes of this dictation, hemodynamically significant stenosis is characterized as greater than 50%. CTA head: Thepetrous, cavernous, and clinoid internal carotid arteries do not demonstrate hemodynamically significant stenoses. The anterior and middle cerebral arteries do not demonstrate hemodynamically significant stenoses. [place] of both vertebral arteries into the basilar. Basilar artery and posterior cerebral arteries are do not demonstrate hemodynamically significant stenoses. PAGE 1 Signed Report (CONT INUED) [place]: [address]: REG ---- Name: OLMAN VEGA [facility] : 1950 Age/S: 71/M [address] Unit #: [id number] Loc: [place], [place] [address] Phys: Ever Herrera DO Acct: [id number] Dis Date: Status: REG ER PHONE #: [phone] Exam Date: 03/21/2022222 FAX #: [phone] Reason: AMS CTDI: DLP: Automated exposure control, iterative reconstruction technique, and/oradjustment of mA and/or kV according to patient's size was utilized fooptimum radiation dose reduction. EXAMS:CPT CODE: [id number] CTA NECK 58234 (Continued) No aneurysm is seen. The dural venous sinuses are patent. CTA neck: The origins of the great vessels from the aortic arch do not demonstrate hemodynamically significant stenoses. The bilateral common carotid arteries and bulbs are without hemodynamically significant stenosis. The internal carotid arteries do not demonstrate hemodynamically significant stenosis. No pseudoaneurysm or dissection. The vertebral arteries are codominant. No incidental soft tissue findings. Multilevel degenerative changes of the visualized spine. IMPRESSION: 1. No hemodynamically significant stenoses of the extracranial carotid or vertebral arteries. 2. No intracranial large vessel occlusion or aneurysm. at 0242 Reported and signed by: Jona Jones MD Facility [facility] Accreditation for CT - June 2012 CC: Ever Herrera DO Technologist: ERICK CHAMBERS RT(R) Transcribed Date/Time/By: 03/21/2022 (0242) : By: [email or web address] Orig Print D/T: S: 03/21/2022 (0525) PAGE 2 Signed Report- CTA [id number] 02:42:00[facility] : 1950 Sex: M [place]: [address]: REG -- Name: OLMAN VEGA [facility] : 1950 Age/S: 71/M [address] [facility] Unit #: [id number] Loc: [place], [place] [address] Phys: Ever Herrera DO Acct: [id number] DisDate: Status: REG ER PHONE #: [phone] Exam Date: 03/21/2022222 FAX #: [phone] Reason: AMS CTDI: DLP: Automated exposure control, iterative reconstruction technique, and/oradjustment of mA and/or kV according to patient's size was utilized fooptimum radiation dose reduction. EXAMS: CPT CODE: [id number] CTA HEAD 83559 EXAM: - CTA HEAD, - CTA NECK LOCATION: H57 HISTORY: AMS TECHNIQUE: CTA head: Axial CT images were obtained from the skull base to the vertex after intravenous contrast utilizing CTA protocol. Coronal and sagittal maximum intensity projection images are provided. CTA neck: Axial CT images were obtained from the aortic arch to the skull base after intravenous contrast utilizing CTA protocol. Coronal and sagittal maximum intensity projection images are provided. This exam was performed according to our departmental dose- optimization program, which includes automated exposure control, adjustment of the mA and/or kV according to patient size and/or use of iterative reconstruc tion technique COMPARISON: None available time of interpretation. FINDINGS: For the purposes of thisdictation, hemodynamically significant stenosis is characterized as greater than 50%. CTA head: The petrous, cavernous, and clinoid internal carotid arteries do not demonstrate hemodynamically significant stenoses. The anterior and middle cerebral arteries do not demonstrate hemodynamically significant stenoses. [place] of both vertebral arteries into the basilar. Basilar artery and posterior cerebral arteries are do not demonstrate hemodynamically significant stenoses. PAGE 1 Signed Report (CONT INUED) [place]: [facility] St: REG ---- Name: GARYOLMAN [facility] : 1950 Age/S: 71/M [address] Unit #: [id number] [facility] [place], [place] [address] Phys: Ever Herrera DO Acct: [id number] Dis Date: Status: REG ER PHONE #: [phone] Exam Date: 03/21/2022222 FAX #: [phone] Reason: AMS CTDI: DLP: Automated exposure control, iterative reconstruction technique, and/oradjustment of mA and/or kV according to patient's size was utilized fooptimum radiation dose reduction. EXAMS: CPT CODE: [id number] CTA HEAD 54676 (Continued) No aneurysm is seen. The dural venous sinuses are patent. CTA neck: The origins of the great vessels from the aortic arch do not demonstrate hemodynamically significant stenoses. The bilateral common carotid arteries and bulbs are without hemodynamicallysignificant stenosis. The internal carotid arteries do not demonstrate hemodynamically significant stenosis. No pseudoaneurysm or dissection. The vertebral arteries are codominant. No incidental soft tissue findings. Multilevel degenerative changes of the visualized spine. IMPRESSION: 1. No hemodynamically significant stenoses of the extracranial carotid or vertebral arteries. 2. No intracranial large vessel occlusion or aneurysm. at 0242 Reported and signed by: Jona Jones MD Facility [facility] Accreditation for CT - June 2012 CC: Ever Herrera DO Technologist: ERICK CHAMBERS RT(R) Transcribed Date/Time/By: 03/21/2022 (024) : By: [email or web address] Orig Print D/T: S: 03/21/2022 (1420) PAGE 2 Signed Report- CT HEAD/BRAIN W/O CONT 2022-03-21 02:21:00 [facility] : 1950 Sex: M [address] [place]: [facility] St: REG -- Name: OLMAN VEGA [facility] : 1950 Age/S: 71/M [address] Unit #: [id number] Loc: [place], [place] [address] Phys: Ever Herrera DO Acct: [id number] DisDate: Status: REG ER PHONE #: [phone] Exam Date: 03/21/2022222 FAX #: [phone] Reason: AMS CTDI: DLP: Automated exposure control, iterative reconstruction technique, and/oradjustment of mAand/or kV according to patient's size was utilized fooptimum radiation dose reduction. EXAMS: CPT CODE: [id number] CT HEAD/BRAIN W/O CONT 62522 EXAM: - CT HEAD/BRAIN W/O CONT HISTORY: AMS. TECHNIQUE: Axial tomograms through the brain were obtained without intravenous contrast. This exam was performed according to our departmental dose-optimization program, which includes automated exposure control, adjustment of the mA and/or kV according to patient size and/or use of iterative reconstruction technique. COMPARISON: None available time of interpretation. FINDINGS: There is no intracranial hemorrhage, or mass effect. The ventricular system and sulci are age-appropriate. The osseous structures and orbits, show no significant abnormalities. The visualized sinuses are relatively clear. The soft tissues are unremarkable. IMPRESSION: No evidence of acute intracranial abnormality or hemorrhage. at 0221 Reported and signed by: RHIANNON CONNER MD Facility [facility] Accreditation for CT - June 2012 CC: Ever Herrera DO Technologist: ERICK CHAMBERS RT(R) Transcribed Date/Time/By: 03/21/2022 (220) : By: [email or web address] Orig Print D/T: S:03/21/2022 (0224) PAGE 1 Signed ReportCOVID 19 Asymptomatic IH AG 2022-03-21 01:40:00 Test Item Value Reference Interpretation Comments Range COVID 19 Presumptive Presump.Neg Results are for the Asymptomatic IH Negative identificati on of AG (test code = VQWC-IzQ-9tu cleocapsid COVNONPUIAG) protein antigen . Antigen is generallydetect able in upper respirato ry specimens durin g the acutephase of infection. Posi tive results indicat e the presenceof javier l antigens, but c linical correlation wit h patienthistory and other diagnosti c information is necessary todet ermine infection statu s. Positive result s do not rule outbacteri al infection or co-infection wi th other viruses. Theage nt detected may no t be the definite cause of disease.Laborat ories within the Unit ed States and its territoriesare required to report all p ositive results to [facility] authorit ies. Negative result s should be treated as presumptive andconfirmed wi th molecular assay , if necessary for patientmanageme nt. Negative result s do not rule out COVID- 19 andshould not b e used as the sole bas is for treatment orpat ient management deci sions, including infec tion controldecision s. Negative result s should be considered i n thecontext of a patient's recen t exposures, hist ory andpresence of clinical signs and sympt oms consistent withCOVID-19. T he Yelena SARS Antigen FI A is intended for us e by trainedclinical personnel and individuals cleo perez in point of carese ttings. The Yelena SARS Antigen DEIDRE is only for use underthe Food a nd Drug Administration' s Emergency UseAuthorizatio n. LOT # [id number].DATE 01/30/23PROCEDURAL CONTROL ACCEPTABLE Y/N YPROTHROMBIN TIME 2022-03-21 01:35:00 Test Item Value Reference Interpretation Comments Range PROTHROMBIN TIME 11.6 SECONDS 9.1-12.0 N PATIENT (test code = PTP) INTERNATIONAL 1.09 0.93-1.2 N Recommended erapeutic NORMAL RATIO (test PT Ratios For Oral code = INR) AnticoagualantT herapy. CONDITION INT'L NORMALIZED PT R --------- ------ Prophylaxis of venous thrombosis 2.0 - 3.0in high risk medic al or surgicalpatient s, treatment of venousthrombosi s, prevention of e mbolism. Prevention of r ecurrent embolism, 3.0 - 4.5or treatment of pa tients with mechanical prosthetic heart valves. IS THE PATIENT ON ANY ANTICOAGULANTS? NTHROMBOPLASTIN TIME [id number] 01:35:00 Test Item Value Reference Range Interpretation Comments THROMBOPLASTIN TIME PARTIAL 26.1 SECONDS 23.0-32.0 N (test code = PTT) IS THE PATIENT ON ANY ANTICOAGULANTS? NNT PRO-BRAIN NATRIURETIC [id number] 01:26:00 Test Item Value Reference Range Interpretation Comments NT PRO-BRAIN NATRIURETIC PEPTI (test 28 pg/mL 0-125 N code = PROBNP) [id number] 01:26:00 Test Item Value Reference Range Interpretation Comments TROPONIN-I 9.4 pg/mL 3.0-78.5 N An elevated tro ponin value (test code = alone is not kearney fficient TROPI) todiagnose a my ocardial infarction. Rat her, the patient'sclinic al presentation (history, physi ant exam) and ECGshould be us ed in conjuction with troponin in the diagnostice valuation of suspected myoca ridal infarction. A s erialsampling protocol is rec ommended to facilitate heid entification of temporal change s in troponin levelscharacter istic of CA. COMPREHENSIVE METABOLIC [id number] 01:26:00 Test Item Value Reference Range Interpretation Comments SODIUM (test code = 146 mmol/L 136-145 H NA) POTASSIUM (test code 3.4 mmol/L 3.5-5.1 L = K) CHLORIDE (test code = 112 mmol/L 98-113 N CL) CARBON DIOXIDE (test 25 mmol/L 21-32 N code = CO2) GLUCOSE (test code = 126 mg/dL 65-99 H GLU) BLOOD UREA NITROGEN 16 mg/dL 7-18 N (test code = BUN) GLOMERULAR FILTRATION 119 Report ing units: RATE (test code = ml/min/1.7 3m\\S\\2 GFR) (Modified MDRD Formula)If age < 18 years, GFR is n ot applicable. KD/ DOQI Clinical Practi ce Guidelines: Sta ge 1: Kidney damage w /normal or increased GF R >90Stage 2: Kid vielka damage w/mild d ecrease in GFR 60 - 89S tage 3: Moderate decrea se in GFR 30 - 59Stag e 4: Severe decrease in GFR 15 - 29Stage 5: Kidney failure < 15 (o r dialysis) CREATININE (test code 0.7 mg/dL 0.6-1.0 N = CREAT) TOTAL PROTEIN (test 6.8 g/dL 6.4-8.2 N code = PROT) ALBUMIN (test code = 3.1 g/dL 3.4-5.0 L ALB) GLOBULIN (test code = 3.7 gm/dL 2.3-3.5 H GLOB) ALBUMIN/GLOBULIN 0.8 1.5-2.2 L RATIO (test code = A/G) CALCIUM (test code = 9.2 mg/dL 7.8-10.9 N CA) BILIRUBIN TOTAL (test 1.0 mg/dL 0.0-1.1 N code = BILT) SGOT/AST (test code = 53 U/L 15-37 H Report ing units: AST) International U nits/L SGPT/ALT (test code = 62 U/L 10-30 H Report ing units: ALT) International U nits/L ALKALINE PHOSPHATASE 125 U/L 45-117 H TOTAL (test code = ALKP) [id number] 01:26:00 Test Item Value Reference Range Interpretation Comments LIPASE (test code = 146 U/L 73-393 N Reportin g units: LIP) International U nits/L UA RFLX MICR CULT IF [id number] 01:16:00 Test Item Value Reference Range Interpretation Comments UA COLOR (test code = COLU) Yellow YELLOW UA APPEARANCE (test code = Clear CLEAR APPU) UA GLUCOSE DIPSTICK (test Normal NORMAL code = DGLUU) UA BILIRUBIN DIPSTICK (test Negative NEGATIVE code = BILU) UA KETONE DIPSTICK (test 10 NEGATIVE code = KETU) UA SPECIFIC GRAVITY (test 1.017 1.000-1.032 N code = SGU) UA BLOOD DIPSTICK (test code Negative NEGATIVE = PAT) UA PH DIPSTICK (test code = 7.5 5.0-9.0 N MICHAEL) UA PROTEIN DIPSTICK (test Negative NEGATIVE code = PROU) UA UROBILINIOGEN DIPSTICK Normal NORMAL (test code = URO) UA NITRITE DIPSTICK (test Negative NEGATIVE code = REMINGTON) UA LEUKOCYTE ESTERASE Negative NEGATIVE DIPSTICK (test code = LEUU) UA WBC (test code = WBCU) 0-2 0-5 UA CULTURE NEEDED? (test Criteria not met code = UACULT) SOURCE: URINESPECIMEN DESCRIPTION: RANDOMIndication for culture: Suprapubic Pain UA [id number] 01:16:00 Test Item Value Reference Range Interpretation Comments UA RBC (test code = RBCU) 0-2 0-5 UA MUCUS (test code = MUCU) OCC NONE-FEW SOURCE: URINESPECIMEN DESCRIPTION: RANDOMIndication for culture: Suprapubic Pain LACTIC [id number] 01:15:00 Test Item Value Reference Range Interpretation Comments LACTIC ACID (test code = LACT) 2.30 mmol/L 0.4-2.0 HH [id number] 01:07:00 Test Item Value Reference Range Interpretation Comments AMMONIA (test code = AMM) 314 umol/L 11-32 H CBC W/AUTO [id number] 00:50:00 Test Item Value Reference Range Interpretation Comments WHITE BLOOD CELL (test code = 5.5 K/mm3 4.8-10.8 N WBC) RED BLOOD CELL (test code = RBC) 4.37 M/mm3 4.2-5.4 N HEMOGLOBIN (test code = HGB) 14.6 gm/DL 13.5-17.5 N HEMATOCRIT (test code = HCT) 43.3 % 37.1-51.5 N MEAN CELL VOLUME (test code = 99.1 fL 81-99 H MCV) MEAN CELL HGB (test code = MCH) 33.4 pg 27-31 H MEAN CELL HGB CONCETRATION (test 33.7 gm/dL 33-37 N code = MCHC) RED CELL DISTRIBUTION WIDTH (test 13.1 % 11.5-14.5 N code = RDW) PLATELET COUNT (test code = PLT) 187 X10(3) 130-400 N MEAN PLATELET VOLUME (test code = 10.7 fL 9.4-12.4 N MPV) NEUTROPHIL % (test code = NT%) 43.0 % 51.5-79.7 L IMMATURE GRANULOCYTE % (test code 0.400 % 0.108-0.322 H = IG%) LYMPHOCYTE % (test code = LY%) 44.1 % 14-40 H MONOCYTE % (test code = MO%) 9.8 % 4.0-10.2 N EOSINOPHIL % (test code = EO%) 2.0 % 0-4.1 N BASOPHIL % (test code = BA%) 0.7 % 0.1-0.7 N NUCLEATED RBC % (test code = 0.0 % 0-0 N NRBC%) NEUTROPHIL # (test code = NT#) 2.4 K/mm3 2.5-8.6 L IMMATURE GRANULOCYTE # (test code 0.020 K/mm3 0.0052-0.0224 N = IG#) LYMPHOCYTE # (test code = LY#) 2.4 K/mm3 1.1-3.6 N MONOCYTE # (test code = MO#) 0.5 K/mm3 0.3-0.9 N EOSINOPHIL # (test code = EO#) 0.11 # 0.0-0.4 N BASOPHIL # (test code = BA#) 0.04 K/mm3 0.0-0.2 N NUCLEATED RBC # (test code = 0.00 K/mm3 0.00-0.20 N NRBC#) CHEM [id number] 20:28:00 Test Item Value Reference Range Interpretation Comments Glucose Lvl (test code = Glucose Lvl) 50 70-99 [facility] [id number] 20:28:00 Test Item Value Reference Range Interpretation Comments BUN (test code = BUN) 12 7-22 [facility] [id number] 20:28:00 Test Item Value Reference Range Interpretation Comments Creatinine Lvl (test code = Creatinine 0.70 0.50-1.40 Lvl) [facility] [id number] 20:28:00 Test Item Value Reference Range Interpretation Comments Sodium Lvl (test code = Sodium Lvl) 145 135-145 [facility] [id number] 20:28:00 Test Item Value Reference Range Interpretation Comments Potassium Lvl (test code = Potassium 3.8 3.5-5.1 Lvl) [facility] [id number] 20:28:00 Test Item Value Reference Range Interpretation Comments Chloride Lvl (test code = Chloride Lvl) 117 95-109 [facility] [id number] 20:28:00 Test Item Value Reference Range Interpretation Comments CO2 (test code = CO2) 25 24-32 [facility] [id number] 20:28:00 Test Item Value Reference Range Interpretation Comments AGAP (test code = AGAP) 6.8 10.0-20.0 [facility] [id number] 20:28:00 Test Item Value Reference Range Interpretation Comments Calcium Lvl (test code = Calcium Lvl) 8.6 8.5-10.5 [facility] [id number] 20:28:00 Test Item Value Reference Range Interpretation Comments eGFR (test code = eGFR) [address]03-27 20:28:00 Test Item Value Reference Range Interpretation Comments Ammonia (test code = Ammonia) 90.0 [address]03-27 20:28:00 Test Item Value Reference Range Interpretation Comments Total Protein (test code = Total 6.7 6.4-8.4 Protein) [address]03-27 20:28:00 Test Item Value Reference Range Interpretation Comments Albumin Lvl (test code = Albumin Lvl) 2.9 3.5-5.0 [address]03-27 20:28:00 Test Item Value Reference Range Interpretation Comments ALANINE AMINOTRANSFERASE 65 See_Comment [A utomated message] (test code = ALANINE The sys tem which AMINOTRANSFERASE) generated this result transmitted ref erence range: <=65. Th e reference range was not used to int erpret this result as normal/abnormal . 13 [address]27 20:28:00 Test Item Value Reference Range Interpretation Comments AST (test code = AST) 52 See_Comment [Auto mated message] The system which ge nerated this result transmit brigido reference range : <=37. The reference range was not used to interpr et this result as alexander l/abnormal. [address]03-27 20:28:00 Test Item Value Reference Range Interpretation Comments Alk Phos (test code = Alk Phos) 116 39-136 [address]03-27 20:28:00 Test Item Value Reference Range Interpretation Comments Bili Total (test code = Bili Total) 0.8 0.2-1.3 [address]03-27 20:28:00 Test Item Value Reference Range Interpretation Comments Bili Direct (test code 0.3 See_Comment [Aut omated message] The = Bili Direct) system which generated this result tra nsmitted reference range : <=0.3. The reference r sabino was not used to int erpret this result as alexander l/abnormal. [address]03-27 20:28:00 Test Item Value Reference Range Interpretation Comments Bili Indirect (test 0.5 See_Comment [Automa brigido message] The code = Bili Indirect) system which generated this result tra nsmitted reference range : <=1.0. The reference r sabino was not used to int erpret this result as normal/abnormal . [place] [address]-03-27 20:28:00 Test Item Value Reference Range Interpretation Comments Globulin (test code = Globulin) 3.8 2.7-4.2 [place] 09[address]-03-27 20:28:00 Test Item Value Reference Range Interpretation Comments A/G Ratio (test code = A/G Ratio) 0.8 1 0.7-1.6 [place] 09[address]-03-27 20:28:00 Test Item Value Reference Range Interpretation Comments Lipase Lvl (test code = Lipase Lvl) 123 73-393 [place] 091992-03-27 20:28:00 Test Item Value Reference Range Interpretation Comments Lactic Acid Lvl (test code = Lactic 1.7 0.5-2.2 Acid Lvl) [place] [address]-03-27 20:28:00 Test Item Value Reference Range Interpretation Comments Magnesium Lvl (test code = Magnesium 2.2 1.8-2.4 Lvl) [place] 09[address]-03-27 20:28:00 Test Item Value Reference Range Interpretation Comments Phosphorus (test code = Phosphorus) 2.8 2.5-4.5 [place] [address]-03-27 20:28:00 Test Item Value Reference Range Interpretation Comments WBC (test code = WBC) 5.5 3.7-10.4 [place] [address]-03-27 20:28:00 Test Item Value Reference Range Interpretation Comments RBC (test code = RBC) 4.23 4.70-6.10 [place] [address]-03-27 20:28:00 Test Item Value Reference Range Interpretation Comments Hgb (test code = Hgb) 14.2 14.0-18.0 [place] [address]-03-27 20:28:00 Test Item Value Reference Range Interpretation Comments Hct (test code = Hct) 41.5 42.0-54.0 [place] [address]-03-27 20:28:00 Test Item Value Reference Range Interpretation Comments MCV (test code = MCV) 98.2 80.0-94.0 [place] [address]-03-27 20:28:00 Test Item Value Reference Range Interpretation Comments MCH (test code = MCH) 33.6 pg 27.0-31.0 [place] 932942-03-27 20:28:00 Test Item Value Reference Range Interpretation Comments MCHC (test code = MCHC) 34.2 32.0-36.0 [place] 932942-03-27 20:28:00 Test Item Value Reference Range Interpretation Comments RDW (test code = RDW) 14.1 11.5-14.5 [place] 932942-03-27 20:28:00 Test Item Value Reference Range Interpretation Comments Platelet (test code = Platelet) 192 133-450 [place] 932942-03-27 20:28:00 Test Item Value Reference Range Interpretation Comments MPV (test code = MPV) 8.8 7.4-10.4 [place] 932942-03-27 20:28:00 Test Item Value Reference Range Interpretation Comments PT (test code = PT) 13.9 s 12.0-14.7 [place] 932942-03-27 20:28:00 Test Item Value Reference Range Interpretation Comments INR (test code = INR) 1.08 1 0.85-1.17 [place] 932942-03-27 20:28:00 Test Item Value Reference Range Interpretation Comments Segs (test code = Segs) 41.6 45.0-75.0 [place] 932942-03-27 20:28:00 Test Item Value Reference Range Interpretation Comments Lymphocytes (test code = Lymphocytes) 44.4 20.0-40.0 [place] 932942-03-27 20:28:00 Test Item Value Reference Range Interpretation Comments Monocytes (test code = Monocytes) 11.5 2.0-12.0 [place] [address]-03-27 20:28:00 Test Item Value Reference Range Interpretation Comments Eosinophils (test code = 1.8 See_Comment [A utomated message] The Eosinophils) system which ge nerated this result tra nsmitted reference range : <=4.0. The reference r sabino was not used to int erpret this result as normal/abnormal . [place] 932942-03-27 20:28:00 Test Item Value Reference Range Interpretation Comments Basophils (test code = 0.7 See_Comment [Aut omated message] The Basophils) system which ge nerated this result tra nsmitted reference range : <=1.0. The reference r sabino was not used to int erpret this result as normal/abnormal . [facility]KzcwzkrOLTAOBDSWW5539-87-37 20:28:00 Test Item Value Reference Range Interpretation Comments Neutrophils # (test code = Neutrophils 2.3 1.5-8.1 #) [facility] ArlingtonUgntbhvRAIRRJSDQB8364-82-67 20:28:00 Test Item Value Reference Range Interpretation Comments Lymphocytes # (test code = Lymphocytes 2.4 1.0-5.5 #) [facility] ArlingtonAuglnkuDJFPYLKMBE7278-95-43 20:28:00 Test Item Value Reference Range Interpretation Comments Monocytes # (test code 0.6 See_Comment [Aut omated message] The = Monocytes #) system which generated this result tra nsmitted reference range : <=0.8. The reference r sabino was not used to int erpret this result as normal/abnormal . [facility] ArlingtonDhdxdtsCFTGRILBTG3857-76-09 20:28:00 Test Item Value Reference Range Interpretation Comments Eosinophils # (test code 0.1 See_Comment [A utomated message] The = Eosinophils #) system whic h generated this result tra nsmitted reference range : <=0.5. The reference r sabino was not used to int erpret this result as normal/abnormal . [facility] ArlingtonTijbzvdZOAOXIRCJY6536-93-94 20:28:00 Test Item Value Reference Range Interpretation Comments Basophils # (test code 0.0 See_Comment [Aut omated message] The = Basophils #) system which generated this result tra nsmitted reference range : <=0.2. The reference r sabino was not used to int erpret this result as normal/abnormal . [facility]ObjccpjTIYMOBZIUH1607-28-65 20:28:00 Test Item Value Reference Range Interpretation Comments Coronavirus (COVID-19) Not Detected (02/15/22 JACLYN (test code = 3:28 PM) Coronavirus (COVID-19) JACLYN) [place] 581592-03-27 20:28:00 Test Item Value Reference Range Interpretation Comments UA Turbidity (test code = Clear (02/15/22 3:28 UA Turbidity) PM) [facility] AND [id number] 20:28:00 Test Item Value Reference Range Interpretation Comments UA Spec Grav (test code = UA Spec 1.016 1 Grav) [facility] AND [id number] 20:28:00 Test Item Value Reference Range Interpretation Comments UA pH (test code = UA pH) 5.0 1 5.0-8.0 [facility] AND [id number] 20:28:00 Test Item Value Reference Range Interpretation Comments UA Protein (test code = UA Negative mg/dL Protein) [facility] AND [id number] 20:28:00 Test Item Value Reference Range Interpretation Comments UA Glucose (test code = UA Negative mg/dL Glucose) [facility] AND [id number] 20:28:00 Test Item Value Reference Range Interpretation Comments UA Ketones (test code = UA Trace mg/dL Ketones) [facility] AND [id number] 20:28:00 Test Item Value Reference Range Interpretation Comments UA Bili (test code = Negative *NA*(02/15/22 UA Bili) 3:28 PM) [facility] AND [id number] 20:28:00 Test Item Value Reference Range Interpretation Comments UA Blood (test code = Negative (02/15/22 3:28 UA Blood) PM) [facility] AND [id number] 20:28:00 Test Item Value Reference Range Interpretation Comments UA Urobilinogen (test code = UA 2.0 0.1-1.0 Urobilinogen) [facility] AND [id number] 20:28:00 Test Item Value Reference Range Interpretation Comments UA Nitrite (test code Negative (02/15/22 3:28 = UA Nitrite) PM) [facility] AND [id number] 20:28:00 Test Item Value Reference Range Interpretation Comments UA Leuk Est (test Negative (02/15/22 3:28 code = UA Leuk Est) PM) [facility] AND [id number] 20:28:00 Test Item Value Reference Range Interpretation Comments UA WBC (test code = no gt See_Comment [Automa brigido message] The UA WBC) system which ge nerated this result transmit brigido reference range : <=5. The reference range was not used to interpr et this result as alexander l/abnormal. [facility] AND [id number] 20:28:00 Test Item Value Reference Range Interpretation Comments UA RBC (test code = no gt See_Comment [Automa brigido message] The UA RBC) system which ge nerated this result transmit brigido reference range : <=2. The reference range was not used to interpr et this result as alexander l/abnormal. [facility] AND [id number] 20:28:00 Test Item Value Reference Range Interpretation Comments UA Mucus (test code = UA Mucus) Few /LPF [facility] AND [id number] 20:28:00 Test Item Value Reference Range Interpretation Comments UA Sq Epi (test code = UA Sq Epi) None Seen [facility] AND [id number] 20:28:00 Test Item Value Reference Range Interpretation Comments UA Color (test code = UA Color) Yellow [facility]2022-03-18 14:40:00 Test Item Value Reference Range Interpretation Comments Ferritin Lvl (test code = Ferritin Lvl) 54 24-380 [facility]2022-03-18 14:40:00 Test Item Value Reference Range Interpretation Comments Vitamin B12 Lvl (test code = Vitamin 059 702-2662 B12 Lvl) [facility]2022-03-18 14:40:00 Test Item Value Reference Range Interpretation Comments Folate Lvl (test code = Folate Lvl) 13.9 [facility]2022-03-18 14:40:00 Test Item Value Reference Range Interpretation Comments Glucose Lvl (test code = Glucose Lvl) 84 65-139 [facility]2022-03-18 14:40:00 Test Item Value Reference Range Interpretation Comments BUN (test code = BUN) 16 7-25 [place] [address]1992-03-18 14:40:00 Test Item Value Reference Range Interpretation Comments Creatinine Lvl (test code = Creatinine 0.64 0.70-1.25 Lvl) [facility]2022-03-18 14:40:00 Test Item Value Reference Range Interpretation Comments eGFR NON-AFR. CENTRAL AFRICAN (test code = 100 eGFR NON-AFR. CENTRAL AFRICAN) [facility]2022-03-18 14:40:00 Test Item Value Reference Range Interpretation Comments eGFR (test code = eGFR 116 ) [place] [address]1992-03-18 14:40:00 Test Item Value Reference Range Interpretation Comments B/C Ratio (test code = B/C Ratio) 25 6-22 [place] [address]1992-03-18 14:40:00 Test Item Value Reference Range Interpretation Comments Sodium Lvl (test code = Sodium Lvl) 143 135-146 [place] 091992-03-18 14:40:00 Test Item Value Reference Range Interpretation Comments Potassium Lvl (test code = Potassium 3.8 3.5-5.3 Lvl) [id number] 14:40:00 Test Item Value Reference Range Interpretation Comments Chloride Lvl (test code = Chloride Lvl) 108 98-110 [facility] [id number] 14:40:00 Test Item Value Reference Range Interpretation Comments CO2 (test code = CO2) 26 20-32 [place] [address]1992-03-18 14:40:00 Test Item Value Reference Range Interpretation Comments Calcium Lvl (test code = Calcium Lvl) 9.0 8.6-10.3 [place] [address]-03-18 14:40:00 Test Item Value Reference Range Interpretation Comments Total Protein (test code = Total 6.0 6.1-8.1 Protein) [place] [address]-03-18 14:40:00 Test Item Value Reference Range Interpretation Comments Albumin Lvl (test code = Albumin Lvl) 3.5 3.6-5.1 [place] [address]-03-18 14:40:00 Test Item Value Reference Range Interpretation Comments Globulin (test code = Globulin) 2.5 1.9-3.7 [place] [address]-03-18 14:40:00 Test Item Value Reference Range Interpretation Comments A/G Ratio (test code = A/G Ratio) 1.4 1.0-2.5 [place] [address]-03-18 14:40:00 Test Item Value Reference Range Interpretation Comments Bili Total (test code = Bili Total) 0.9 0.2-1.2 [place] [address]-03-18 14:40:00 Test Item Value Reference Range Interpretation Comments Alk Phos (test code = Alk Phos) 99 35-144 [place] 091992-03-18 14:40:00 Test Item Value Reference Range Interpretation Comments ASPARTATE TRANSAMINASE (test code = 45 10-35 ASPARTATE TRANSAMINASE) [facility]2022-03-18 14:40:00 Test Item Value Reference Range Interpretation Comments ALANINE AMINOTRANSFERASE (test code = 42 9-46 ALANINE AMINOTRANSFERASE) [facility]2022-03-18 14:40:00 Test Item Value Reference Range Interpretation Comments Vitamin D, 25-OH, Total (test code = 33 30-100 Vitamin D, 25-OH, Total) [place] 932942-03-18 14:40:00 Test Item Value Reference Range Interpretation Comments WBC X 10x3 (test code = WBC X 10x3) 4.7 3.8-10.8 [place] 932942-03-18 14:40:00 Test Item Value Reference Range Interpretation Comments RBC X 10x6 (test code = RBC X 10x6) 4.35 4.20-5.80 [place] [address]-03-18 14:40:00 Test Item Value Reference Range Interpretation Comments Hgb (test code = Hgb) 14.2 13.2-17.1 [place] 932942-03-18 14:40:00 Test Item Value Reference Range Interpretation Comments Hct (test code = Hct) 42.0 38.5-50.0 [place] [address]-03-18 14:40:00 Test Item Value Reference Range Interpretation Comments MCV (test code = MCV) 96.6 80.0-100.0 [place] [address]-03-18 14:40:00 Test Item Value Reference Range Interpretation Comments MCH (test code = MCH) 32.6 pg 27.0-33.0 [place] [address]-03-18 14:40:00 Test Item Value Reference Range Interpretation Comments MCHC (test code = MCHC) 33.8 32.0-36.0 [place] [address]-03-18 14:40:00 Test Item Value Reference Range Interpretation Comments RDW (test code = RDW) 12.2 11.0-15.0 [place] [address]-03-18 14:40:00 Test Item Value Reference Range Interpretation Comments Platelet (test code = Platelet) 194 140-400 [place] 932942-03-18 14:40:00 Test Item Value Reference Range Interpretation Comments MPV (test code = MPV) 11.6 7.5-12.5 [facility] ArlingtonZrvtukfYRFPMHMXHD5384-44-62 14:40:00 Test Item Value Reference Range Interpretation Comments Neutrophils # (test code = Neutrophils 1955 8944-0183 #) [facility]FL[facility]PHID8934[facility]75-49 14:40:00 Test Item Value Reference Range Interpretation Comments Lymphocytes # (test code = Lymphocytes 2106 850-3900 #) [facility]OsnstgaSTVRMYJSFE5386-00-48 14:40:00 Test Item Value Reference Range Interpretation Comments Monocytes # (test code = Monocytes #) 470 200-950 [facility] HospitalKwmkuhaBBLCOROBRL8294-93-12 14:40:00 Test Item Value Reference Range Interpretation Comments Eosinophils # (test code = Eosinophils 108 15-500 #) [facility] ArlingtonBzqqollPCOQZEPNNP3758-19-22 14:40:00 Test Item Value Reference Range Interpretation Comments Basophils # (test code 61 See_Comment [Aut omated message] The = Basophils #) system which generated this result tra nsmitted reference range : <=200. The reference r sabino was not used to int erpret this result as normal/abnormal . [facility] ArlingtonKzoawefUMXQYUCRFI9980-37-49 14:40:00 Test Item Value Reference Range Interpretation Comments Segs (test code = Segs) 41.6 [facility] ArlingtonDcmmohpNUWVCYHXNA5728-83-87 14:40:00 Test Item Value Reference Range Interpretation Comments Lymphocytes (test code = Lymphocytes) 44.8 [facility] ArlingtonIcjzmofBDWBFYLJFP3560-44-02 14:40:00 Test Item Value Reference Range Interpretation Comments Monocytes (test code = Monocytes) 10.0 [facility] ArlingtonMkxxzamMVFYALWHGS4378-38-38 14:40:00 Test Item Value Reference Range Interpretation Comments Eosinophils (test code = Eosinophils) 2.3 [facility] ArlingtonLtclvsqHREULKICST4306-08-21 14:40:00 Test Item Value Reference Range Interpretation Comments Basophils (test code = Basophils) 1.3 [facility] AmericaYrhjzzyNIFLTI9054-65-06 14:40:00 Test Item Value Reference Range Interpretation Comments Chol (test code = Chol) 128 [facility]WC8043[facility] 14:40:00 Test Item Value Reference Range Interpretation Comments HDL (test code = HDL) 55 [facility] CenterPuycfyaTDVQYP0386-16-30 14:40:00 Test Item Value Reference Range Interpretation Comments Trig (test code = Trig) 52 [facility] AmericaUrazosqBYSCFK0033-29-74 14:40:00 Test Item Value Reference Range Interpretation Comments LDL (Calculated) (test code = LDL 60 (Calculated)) [facility] AmericaTgvkxknBLDOWF4296-43-03 14:40:00 Test Item Value Reference Range Interpretation Comments CHD Risk (test code = CHD Risk) 2.3 [facility] AmericaJtwnidrKSRIPN5416-23-79 14:40:00 Test Item Value Reference Range Interpretation Comments Non HDL Chol (test code = Non HDL Chol) [facility] CK[facility]UU3093[facility]51-94 14:40:00 Test Item Value Reference Range Interpretation Comments Hgb A1C (test code = Hgb A1C) 4.9 [facility] 12 xuwn8854-75-67 20:40:14 Test Item Value Reference Range Interpretation Comments Ventricular rate (test code = 253) Atrial rate (test code = 255) MO interval (test code = 266) QRSD interval (test code = 260) QT interval (test code = 264) QTC interval (test code = 265) P axis 1 (test code = 267) QRS axis 1 (test code = 268) T wave axis (test code = 270) EKG impression (test Normal sinus code = 273) rhythm-Left axis deviation-Abnormal ECG-In automated comparison with ECG of 20-AUG-2021 09:19,-Incomplete right bundle branch block is no longer present- [facility] [place] [place] ED Preliminary Interpretation - Not an [id number] 11:23:58 Test Item Value Reference Range Interpretation Comments SIGIFREDO (test code = SIGIFREDO) James Aldrich MD 10/21/2021 5:43 [facility] ED Preliminary Interpretation - Not an OrderPerformed by: James Aldrich MDAuthorized by: James Aldrich MD ECG reviewed by ED Physician in the absence of a bakery decorator: yes Interpretation: Interpretation: abnormal Rate: ECG rate: 68 ECG rate assessment: normal Rhythm: Rhythm: sinus rhythm QRS: QRS axis: Left QRS intervals: NormalST segments: ST segments: NormalT waves: T waves: normal Lab Interpretation Abnormal (test code = 82293-4) [facility]2021-09-30 09:36:00 Test Item Value Reference Range Interpretation Comments Glucose Lvl (test code = Glucose Lvl) 92 70-99 [place] 091991-09-30 09:36:00 Test Item Value Reference Range Interpretation Comments BUN (test code = BUN) 13 7-22 [place] 091991-09-30 09:36:00 Test Item Value Reference Range Interpretation Comments Creatinine Lvl (test code = Creatinine 0.48 0.50-1.40 Lvl) [place] 091991-09-30 09:36:00 Test Item Value Reference Range Interpretation Comments Sodium Lvl (test code = Sodium Lvl) 144 135-145 [place] 091991-09-30 09:36:00 Test Item Value Reference Range Interpretation Comments Potassium Lvl (test code = Potassium 3.8 3.5-5.1 Lvl) [place] 091991-09-30 09:36:00 Test Item Value Reference Range Interpretation Comments Chloride Lvl (test code = Chloride Lvl) 112 95-109 [place] 091991-09-30 09:36:00 Test Item Value Reference Range Interpretation Comments CO2 (test code = CO2) 26 24-32 [place] 091991-09-30 09:36:00 Test Item Value Reference Range Interpretation Comments AGAP (test code = AGAP) 9.8 10.0-20.0 [place] 091991-09-30 09:36:00 Test Item Value Reference Range Interpretation Comments Calcium Lvl (test code = Calcium Lvl) 9.2 8.5-10.5 [place] 091991-09-30 09:36:00 Test Item Value Reference Range Interpretation Comments eGFR (test code = eGFR) 112 [place] 932941-09-30 09:36:00 Test Item Value Reference Range Interpretation Comments WBC (test code = WBC) 5.6 3.7-10.4 [place] 932941-09-30 09:36:00 Test Item Value Reference Range Interpretation Comments RBC (test code = RBC) 4.08 4.70-6.10 [place] 932941-09-30 09:36:00 Test Item Value Reference Range Interpretation Comments Hgb (test code = Hgb) 13.7 14.0-18.0 [place] [address]-09-30 09:36:00 Test Item Value Reference Range Interpretation Comments Hct (test code = Hct) 41.4 42.0-54.0 [place] 932941-09-30 09:36:00 Test Item Value Reference Range Interpretation Comments MCV (test code = MCV) 101.5 80.0-94.0 [place] 932941-09-30 09:36:00 Test Item Value Reference Range Interpretation Comments MCH (test code = MCH) 33.7 pg 27.0-31.0 [place] 932941-09-30 09:36:00 Test Item Value Reference Range Interpretation Comments MCHC (test code = MCHC) 33.2 32.0-36.0 [place] 932941-09-30 09:36:00 Test Item Value Reference Range Interpretation Comments RDW (test code = RDW) 13.5 11.5-14.5 [place] 932941-09-30 09:36:00 Test Item Value Reference Range Interpretation Comments Platelet (test code = Platelet) 154 133-450 [facility] ArlingtonHbvunfnGNMMUGVUSK5174-38-96 09:36:00 Test Item Value Reference Range Interpretation Comments MPV (test code = MPV) 9.2 7.4-10.4 [place] 932941-09-30 09:36:00 Test Item Value Reference Range Interpretation Comments Segs (test code = Segs) 44.3 45.0-75.0 [place] 932941-09-30 09:36:00 Test Item Value Reference Range Interpretation Comments Lymphocytes (test code = Lymphocytes) 39.6 20.0-40.0 [place] 932941-09-30 09:36:00 Test Item Value Reference Range Interpretation Comments Monocytes (test code = Monocytes) 10.3 2.0-12.0 [place] 932941-09-30 09:36:00 Test Item Value Reference Range Interpretation Comments Eosinophils (test code = 5.0 See_Comment [A utomated message] The Eosinophils) system which ge nerated this result tra nsmitted reference range : <=4.0. The reference r sabino was not used to int erpret this result as normal/abnormal . [place] 932941-09-30 09:36:00 Test Item Value Reference Range Interpretation Comments Basophils (test code = 0.8 See_Comment [Aut omated message] The Basophils) system which ge nerated this result tra nsmitted reference range : <=1.0. The reference r sabino was not used to int erpret this result as normal/abnormal . [facility] ArlingtonSoiqvqkKHAHXCNFJY3842-99-25 09:36:00 Test Item Value Reference Range Interpretation Comments Neutrophils # (test code = Neutrophils 2.5 1.5-8.1 #) [facility] ArlingtonUpzuwejPDMRCHZGDW6111-86-43 09:36:00 Test Item Value Reference Range Interpretation Comments Lymphocytes # (test code = Lymphocytes 2.2 1.0-5.5 #) [facility] ArlingtonBnhldejTAPXRSJGUO9071-71-07 09:36:00 Test Item Value Reference Range Interpretation Comments Monocytes # (test code 0.6 See_Comment [Aut omated message] The = Monocytes #) system which generated this result tra nsmitted reference range : <=0.8. The reference r sabino was not used to int erpret this result as normal/abnormal . [facility] ArlingtonVyncnaaPGWMEPHMJR0626-65-51 09:36:00 Test Item Value Reference Range Interpretation Comments Eosinophils # (test code 0.3 See_Comment [A utomated message] The = Eosinophils #) system whic h generated this result tra nsmitted reference range : <=0.5. The reference r sabino was not used to int erpret this result as normal/abnormal . [facility] ArlingtonOpyuqwmBLHYFBMKAL6329-40-61 09:36:00 Test Item Value Reference Range Interpretation Comments Macrocyte (test code = 1+ *ABN*(08/21/21 Macrocyte) 4:36 AM) [facility] AmericaYzxpssxJPYWSWGPDT5975-22-60 19:20:00 Test Item Value Reference Range Interpretation Comments Coronavirus (COVID-19) Not Detected (08/20/21 JACLYN (test code = 2:20 PM) Coronavirus (COVID-19) JACLYN) [facility] AND [id number] 17:31:00 Test Item Value Reference Range Interpretation Comments UA Color (test code = Dark Yellow UA Color) *NA*(08/20/21 12:31 PM) [facility] AND [id number] 17:31:00 Test Item Value Reference Range Interpretation Comments UA Turbidity (test code = Clear (08/20/21 12:31 UA Turbidity) PM) [facility] [id number] 17:31:00 Test Item Value Reference Range Interpretation Comments UA Spec Grav (test code = UA Spec 1.015 1 Grav) [facility] AND [id number] 17:31:00 Test Item Value Reference Range Interpretation Comments UA pH (test code = UA pH) 6.0 1 5.0-8.0 [facility] AND [id number] 17:31:00 Test Item Value Reference Range Interpretation Comments UA Protein (test code Negative (08/20/21 12:31 = UA Protein) PM) [facility] AND [id number] 17:31:00 Test Item Value Reference Range Interpretation Comments UA Glucose (test code Negative *NA*(08/20/21 = UA Glucose) 12:31 PM) [facility] AND [id number] 17:31:00 Test Item Value Reference Range Interpretation Comments UA Ketones (test code = Trace *ABN*(08/20/21 UA Ketones) 12:31 PM) [facility] AND [id number] 17:31:00 Test Item Value Reference Range Interpretation Comments UA Bili (test code = Negative *NA*(08/20/21 UA Bili) 12:31 PM) [facility] AND [id number] 17:31:00 Test Item Value Reference Range Interpretation Comments UA Blood (test code = Negative (08/20/21 12:31 UA Blood) PM) [facility] AND [id number] 17:31:00 Test Item Value Reference Range Interpretation Comments UA Urobilinogen (test code = UA 4.0 0.1-1.0 Urobilinogen) [facility] AND [id number] 17:31:00 Test Item Value Reference Range Interpretation Comments UA Nitrite (test code Negative (08/20/21 12:31 = UA Nitrite) PM) [facility] [id number] 17:31:00 Test Item Value Reference Range Interpretation Comments UA Leuk Est (test Negative (08/20/21 12:31 code = UA Leuk Est) PM) [facility] [id number] 17:31:00 Test Item Value Reference Range Interpretation Comments UA Sq Epi (test code = UA Sq Occasional /LPF Epi) [facility] AND [id number] 17:31:00 Test Item Value Reference Range Interpretation Comments UA WBC (test code = no gt See_Comment [Automa brigido message] The UA WBC) system which ge nerated this result transmit brigido reference range : <=5. The reference range was not used to interpr et this result as alexander l/abnormal. [facility] AND [id number] 17:31:00 Test Item Value Reference Range Interpretation Comments UA RBC (test code = 1 See_Comment [Automa brigido message] The UA RBC) system which ge nerated this result transmit brigido reference range : <=2. The reference range was not used to interpr et this result as alexander l/abnormal. [facility] AND [id number] 17:31:00 Test Item Value Reference Range Interpretation Comments UA Mucus (test code = UA Mucus) Few /LPF [facility] AND [id number] 17:31:00 Test Item Value Reference Range Interpretation Comments UA Hyal Cast (test 1 See_Comment [Automat ed message] The code = UA Hyal Cast) system which generated this result transmit brigido reference range : <=2. The reference range was not used to interpr et this result as alexander l/abnormal. [facility] [id number] 15:56:00 Test Item Value Reference Range Interpretation Comments Troponin-I (test code no gt See_Comment [Auto mated message] The = Troponin-I) system which g enerated this result transmit brigido reference range : <=0.40. The reference r sabino was not used to interpr et this result as alexander l/abnormal. [facility] [employer] [id number] 15:56:00 Test Item Value Reference Range Interpretation Comments Glucose Lvl (test code = Glucose Lvl) 103 70-99 [facility] [id number] 15:56:00 Test Item Value Reference Range Interpretation Comments BUN (test code = BUN) 10 7-22 [facility] [id number] 15:56:00 Test Item Value Reference Range Interpretation Comments Creatinine Lvl (test code = Creatinine 0.69 0.50-1.40 Lvl) [facility] [id number] 15:56:00 Test Item Value Reference Range Interpretation Comments Sodium Lvl (test code = Sodium Lvl) 141 135-145 [place] 091991-09-29 15:56:00 Test Item Value Reference Range Interpretation Comments Potassium Lvl (test code = Potassium 3.4 3.5-5.1 Lvl) [place] 091991-09-29 15:56:00 Test Item Value Reference Range Interpretation Comments Chloride Lvl (test code = Chloride Lvl) 111 95-109 [place] 091991-09-29 15:56:00 Test Item Value Reference Range Interpretation Comments CO2 (test code = CO2) 27 24-32 [place] 091991-09-29 15:56:00 Test Item Value Reference Range Interpretation Comments Calcium Lvl (test code = Calcium Lvl) 9.1 8.5-10.5 [place] 091991-09-29 15:56:00 Test Item Value Reference Range Interpretation Comments Total Protein (test code = Total 6.8 6.4-8.4 Protein) [place] 091991-09-29 15:56:00 Test Item Value Reference Range Interpretation Comments Albumin Lvl (test code = Albumin Lvl) 3.2 3.5-5.0 [place] 091991-09-29 15:56:00 Test Item Value Reference Range Interpretation Comments ALT (test code = ALT) 55 See_Comment [Auto mated message] The system which ge nerated this result transmit brigido reference range : <=65. The reference range was not used to interpr et this result as alexander l/abnormal. [place] 091991-09-29 15:56:00 Test Item Value Reference Range Interpretation Comments AST (test code = AST) 49 See_Comment [Auto mated message] The system which ge nerated this result transmit brigido reference range : <=37. The reference range was not used to interpr et this result as alexander l/abnormal. [place] 091991-09-29 15:56:00 Test Item Value Reference Range Interpretation Comments Alk Phos (test code = Alk Phos) 117 39-136 [place] 091991-09-29 15:56:00 Test Item Value Reference Range Interpretation Comments Bili Total (test code = Bili Total) 1.1 0.2-1.3 [place] 091991-09-29 15:56:00 Test Item Value Reference Range Interpretation Comments AGAP (test code = AGAP) 6.4 10.0-20.0 [place] 091991-09-29 15:56:00 Test Item Value Reference Range Interpretation Comments B/C Ratio (test code = B/C Ratio) 14 1 6-25 [place] 091991-09-29 15:56:00 Test Item Value Reference Range Interpretation Comments Globulin (test code = Globulin) 3.6 2.7-4.2 [place] 091991-09-29 15:56:00 Test Item Value Reference Range Interpretation Comments A/G Ratio (test code = A/G Ratio) 0.9 1 0.7-1.6 [place] 091991-09-29 15:56:00 Test Item Value Reference Range Interpretation Comments eGFR (test code = eGFR) 97 [place] 091991-09-29 15:56:00 Test Item Value Reference Range Interpretation Comments Ammonia (test code = Ammonia) 82.0 [place] 932941-09-29 15:56:00 Test Item Value Reference Range Interpretation Comments WBC (test code = WBC) 5.1 3.7-10.4 [place] 932941-09-29 15:56:00 Test Item Value Reference Range Interpretation Comments RBC (test code = RBC) 4.46 4.70-6.10 [place] 932941-09-29 15:56:00 Test Item Value Reference Range Interpretation Comments Hgb (test code = Hgb) 14.8 14.0-18.0 [place] 932941-09-29 15:56:00 Test Item Value Reference Range Interpretation Comments Hct (test code = Hct) 44.4 42.0-54.0 [place] 932941-09-29 15:56:00 Test Item Value Reference Range Interpretation Comments MCV (test code = MCV) 99.6 80.0-94.0 [place] 932941-09-29 15:56:00 Test Item Value Reference Range Interpretation Comments MCH (test code = MCH) 33.1 pg 27.0-31.0 [place] 932941-09-29 15:56:00 Test Item Value Reference Range Interpretation Comments MCHC (test code = MCHC) 33.3 32.0-36.0 [facility] ArlingtonYygugwsSJKIONQXVO0329-48-06 15:56:00 Test Item Value Reference Range Interpretation Comments RDW (test code = RDW) 13.2 11.5-14.5 [place] 932941-09-29 15:56:00 Test Item Value Reference Range Interpretation Comments Platelet (test code = Platelet) 180 133-450 [facility] ArlingtonFbgxodtRNHTZYLPDB4309-68-26 15:56:00 Test Item Value Reference Range Interpretation Comments MPV (test code = MPV) 9.1 7.4-10.4 [facility] ArlingtonIipigjiQRLFDIGHRD5090-27-22 15:56:00 Test Item Value Reference Range Interpretation Comments PT (test code = PT) 14.1 s 12.0-14.7 [place] 932941-09-29 15:56:00 Test Item Value Reference Range Interpretation Comments INR (test code = INR) 1.10 1 0.85-1.17 [facility] ArlingtonKpoknkqOXNEKMHWJU5645-65-49 15:56:00 Test Item Value Reference Range Interpretation Comments PTT (test code = PTT) 28.6 s 22.9-35.8 [facility] ArlingtonCtwhprdNRWUQUGVFW6323-18-52 15:56:00 Test Item Value Reference Range Interpretation Comments Segs (test code = Segs) 55.5 45.0-75.0 [facility] ArlingtonPovxeflMLDCOAQOEA6079-23-05 15:56:00 Test Item Value Reference Range Interpretation Comments Lymphocytes (test code = Lymphocytes) 31.5 20.0-40.0 [facility] ArlingtonRkmmhpaUXKIENIBII8776-48-73 15:56:00 Test Item Value Reference Range Interpretation Comments Monocytes (test code = Monocytes) 9.8 2.0-12.0 [place] 932941-09-29 15:56:00 Test Item Value Reference Range Interpretation Comments Eosinophils (test code = 2.2 See_Comment [A utomated message] The Eosinophils) system which ge nerated this result tra nsmitted reference range : <=4.0. The reference r sabino was not used to int erpret this result as normal/abnormal . [facility] ArlingtonWswzitwGXQLVDNEHU4193-12-39 15:56:00 Test Item Value Reference Range Interpretation Comments Basophils (test code = 1.0 See_Comment [Aut omated message] The Basophils) system which ge nerated this result tra nsmitted reference range : <=1.0. The reference r sabino was not used to int erpret this result as normal/abnormal . [facility] ArlingtonXlnbxblDKOBSUUMDR3771-35-62 15:56:00 Test Item Value Reference Range Interpretation Comments Neutrophils # (test code = Neutrophils 2.8 1.5-8.1 #) [facility] ArlingtonQlugrxcBZHMWJTMCU1960-74-07 15:56:00 Test Item Value Reference Range Interpretation Comments Lymphocytes # (test code = Lymphocytes 1.6 1.0-5.5 #) [facility] ArlingtonVvfbswmNHSODFWRTP5380-20-26 15:56:00 Test Item Value Reference Range Interpretation Comments Monocytes # (test code 0.5 See_Comment [Aut omated message] The = Monocytes #) system which generated this result tra nsmitted reference range : <=0.8. The reference r sabino was not used to int erpret this result as normal/abnormal . [facility] ArlingtonOcvwhsgFVBWTCSOUE0573-37-46 15:56:00 Test Item Value Reference Range Interpretation Comments Eosinophils # (test code 0.1 See_Comment [A utomated message] The = Eosinophils #) system whic h generated this result tra nsmitted reference range : <=0.5. The reference r sabino was not used to int erpret this result as normal/abnormal . [facility] ArlingtonKcppetyJGZQZNAMBW4462-92-75 15:56:00 Test Item Value Reference Range Interpretation Comments Basophils # (test code 0.1 See_Comment [Aut omated message] The = Basophils #) system which generated this result tra nsmitted reference range : <=0.2. The reference r sabino was not used to int erpret this result as normal/abnormal . [facility]2020-11-24 16:18:00 Test Item Value Reference Range Interpretation Comments Iron (test code = Iron) 63 50-180 [facility]2020-11-24 16:18:00 Test Item Value Reference Range Interpretation Comments TIBC (test code = TIBC) 413 250-425 [facility]2020-11-24 16:18:00 Test Item Value Reference Range Interpretation Comments % Satur Fe (test code = % Satur Fe) 15 20-48 [facility]2020-11-24 16:18:00 Test Item Value Reference Range Interpretation Comments Ferritin Lvl (test code = Ferritin Lvl) 14 24-380 [facility]2020-11-24 16:18:00 Test Item Value Reference Range Interpretation Comments Ammonia (test code = Ammonia) 122 [facility]2020-11-24 16:18:00 Test Item Value Reference Range Interpretation Comments Glucose Lvl (test code = Glucose Lvl) 100 65-139 [facility]2020-11-24 16:18:00 Test Item Value Reference Range Interpretation Comments BUN (test code = BUN) 10 7-25 [facility]2020-11-24 16:18:00 Test Item Value Reference Range Interpretation Comments Creatinine Lvl (test code = Creatinine 0.70 0.70-1.25 Lvl) [facility]2020-11-24 16:18:00 Test Item Value Reference Range Interpretation Comments eGFR NON-AFR. CENTRAL AFRICAN (test code = 97 eGFR NON-AFR. CENTRAL AFRICAN) [facility]2020-11-24 16:18:00 Test Item Value Reference Range Interpretation Comments eGFR (test code = eGFR 112 ) [facility]2020-11-24 16:18:00 Test Item Value Reference Range Interpretation Comments B/C Ratio (test code = B/C NOT APPLICABLE 05-13 Ratio) [facility]2020-11-24 16:18:00 Test Item Value Reference Range Interpretation Comments Sodium Lvl (test code = Sodium Lvl) 141 135-146 [facility]2020-11-24 16:18:00 Test Item Value Reference Range Interpretation Comments Potassium Lvl (test code = Potassium 4.4 3.5-5.3 Lvl) [facility]2020-11-24 16:18:00 Test Item Value Reference Range Interpretation Comments Chloride Lvl (test code = Chloride Lvl) 108 98-110 [facility]2020-11-24 16:18:00 Test Item Value Reference Range Interpretation Comments CO2 (test code = CO2) 29 20-32 [facility]2020-11-24 16:18:00 Test Item Value Reference Range Interpretation Comments Calcium Lvl (test code = Calcium Lvl) 9.0 8.6-10.3 [place] 091990-11-24 16:18:00 Test Item Value Reference Range Interpretation Comments Total Protein (test code = Total 6.0 6.1-8.1 Protein) [facility]2020-11-24 16:18:00 Test Item Value Reference Range Interpretation Comments Albumin Lvl (test code = Albumin Lvl) 3.4 3.6-5.1 [place] 091990-11-24 16:18:00 Test Item Value Reference Range Interpretation Comments Globulin (test code = Globulin) 2.6 1.9-3.7 [place] [address]-11-24 16:18:00 Test Item Value Reference Range Interpretation Comments A/G Ratio (test code = A/G Ratio) 1.3 1.0-2.5 [place] [address]-11-24 16:18:00 Test Item Value Reference Range Interpretation Comments Bili Total (test code = Bili Total) 0.7 0.2-1.2 [place] 091990-11-24 16:18:00 Test Item Value Reference Range Interpretation Comments Alk Phos (test code = Alk Phos) 122 35-144 [facility]2020-11-24 16:18:00 Test Item Value Reference Range Interpretation Comments ASPARTATE TRANSAMINASE (test code = 30 10-35 ASPARTATE TRANSAMINASE) [facility]2020-11-24 16:18:00 Test Item Value Reference Range Interpretation Comments ALANINE AMINOTRANSFERASE (test code = 27 9-46 ALANINE AMINOTRANSFERASE) [place] [address]-11-24 16:18:00 Test Item Value Reference Range Interpretation Comments WBC X 10x3 (test code = WBC X 10x3) 5.2 3.8-10.8 [place] 932940-11-24 16:18:00 Test Item Value Reference Range Interpretation Comments RBC X 10x6 (test code = RBC X 10x6) 3.94 4.20-5.80 [place] 932940-11-24 16:18:00 Test Item Value Reference Range Interpretation Comments Hgb (test code = Hgb) 12.6 13.2-17.1 [place] [address]-11-24 16:18:00 Test Item Value Reference Range Interpretation Comments Hct (test code = Hct) 37.3 38.5-50.0 [place] [address]-11-24 16:18:00 Test Item Value Reference Range Interpretation Comments MCV (test code = MCV) 94.7 80.0-100.0 [facility] ArlingtonQtpbwptDAJKCFHTEM2575-63-43 16:18:00 Test Item Value Reference Range Interpretation Comments MCH (test code = MCH) 32.0 pg 27.0-33.0 [facility] ArlingtonZmqbhreMMLLPADCMM8828-48-50 16:18:00 Test Item Value Reference Range Interpretation Comments MCHC (test code = MCHC) 33.8 32.0-36.0 [facility] ArlingtonEifyfuuCCAKRVQFEH8906-85-22 16:18:00 Test Item Value Reference Range Interpretation Comments RDW (test code = RDW) 13.3 11.0-15.0 [facility] ArlingtonUazqnpbZUCEBUEJAT3387-37-42 16:18:00 Test Item Value Reference Range Interpretation Comments Platelet (test code = Platelet) 224 140-400 [facility] ArlingtonDymgzdiULNMHMYMXR1809-72-76 16:18:00 Test Item Value Reference Range Interpretation Comments MPV (test code = MPV) 10.9 7.5-12.5 [facility] ArlingtonHhlbereYGKPFVOCBN7102-53-65 16:18:00 Test Item Value Reference Range Interpretation Comments Neutrophils # (test code = Neutrophils 2174 0580-6521 #) [facility] ArlingtonJscbaxwOTMGIURHXF2070-87-13 16:18:00 Test Item Value Reference Range Interpretation Comments Lymphocytes # (test code = Lymphocytes 2241 850-3900 #) [facility] ArlingtonYnqvaqbFQIGMUKXIC2450-89-29 16:18:00 Test Item Value Reference Range Interpretation Comments Monocytes # (test code = Monocytes #) 603 200-950 [facility] ArlingtonMngwvgbZGWJPEZFOG0974-79-42 16:18:00 Test Item Value Reference Range Interpretation Comments Eosinophils # (test code = Eosinophils 130 15-500 #) [facility] ArlingtonVghdxabHDQBDNDZSL3917-12-45 16:18:00 Test Item Value Reference Range Interpretation Comments Basophils # (test code 52 See_Comment [Aut omated message] The = Basophils #) system which generated this result tra nsmitted reference range : <=200. The reference r sabino was not used to int erpret this result as normal/abnormal . [facility] ArlingtonLpdkwnpUFSKGMYMIX3082-68-49 16:18:00 Test Item Value Reference Range Interpretation Comments Segs (test code = Segs) 41.8 [place] 932940-11-24 16:18:00 Test Item Value Reference Range Interpretation Comments Lymphocytes (test code = Lymphocytes) 43.1 [facility] ArlingtonAaoelfpHDLLCFZMLR0933-16-88 16:18:00 Test Item Value Reference Range Interpretation Comments Monocytes (test code = Monocytes) 11.6 [facility] ArlingtonKmduqwqVZMWDZQFFL7959-35-65 16:18:00 Test Item Value Reference Range Interpretation Comments Eosinophils (test code = Eosinophils) 2.5 [facility] ArlingtonLgxkjueBFQRXJHWZZ3703-67-03 16:18:00 Test Item Value Reference Range Interpretation Comments Basophils (test code = Basophils) 1.0 [facility] ArlingtonXadbbtiZOLLXLBKRL3559-37-91 16:18:00 Test Item Value Reference Range Interpretation Comments INR (test code = INR) 1.1 1 [facility] ArlingtonDgwwoanMJTUIVMMYG9073-85-82 16:18:00 Test Item Value Reference Range Interpretation Comments PROTIME (test code = PROTIME) 11.1 s 9.0-11.5 [facility]CftrbnlSLGRLKGYYZ9717-08-56 16:18:00 Test Item Value Reference Range Interpretation Comments STEPH (test code = STEPH) NEGATIVE [facility] AtlantaSjzyfpyOKRFCKUMAQ5832-28-21 16:18:00 Test Item Value Reference Range Interpretation Comments DNA Ab (DS) (test code = DNA Ab (DS)) no gt [facility] AtlantaZefsaynKUXMMUFFPL7492-91-25 16:18:00 Test Item Value Reference Range Interpretation Comments SCL- 70 Ab (test code = SCL- 70 Ab) <1.0 NEG [facility] AtlantaYwfucnhNOIAIUZNCY9910-97-87 16:18:00 Test Item Value Reference Range Interpretation Comments Sm Ab (test code = Sm Ab) <1.0 NEG [facility] AtlantaOllersbDZJHVEZJWA1046-00-12 16:18:00 Test Item Value Reference Range Interpretation Comments SM/PLATE AND WELD INSPECTOR (test code = SM/PLATE AND WELD INSPECTOR) <1.0 NEG [facility] AtlantaFzfgtfrAILXDOFTBK7682-12-62 16:18:00 Test Item Value Reference Range Interpretation Comments SS-A (Ro) Ab (test code = SS-A (Ro) <1.0 NEG Ab) [facility] AtlantaGpaxhnjWQLHSRIGGD5030-20-88 16:18:00 Test Item Value Reference Range Interpretation Comments SS-B (La) Ab (test code = SS-B (La) <1.0 NEG Ab) [facility] AtlantaHweenstTCDFJKCNGR3004-79-36 16:18:00 Test Item Value Reference Range Interpretation Comments CERULOPLASMIN (test code = 31 18-36 CERULOPLASMIN) [facility] AtlantaTudfbdeCFGOVTXNDG9584-11-67 16:18:00 Test Item Value Reference Range Interpretation Comments IgA Lvl (test code = IgA Lvl) 260 70-320 [place] 890140-11-24 16:18:00 Test Item Value Reference Range Interpretation Comments IgG Lvl (test code = IgG Lvl) 2038 286-1444 [place] 890140-11-24 16:18:00 Test Item Value Reference Range Interpretation Comments IgM Lvl (test code = IgM Lvl) 102 50-300 [facility]2020-11-09 14:54:00 Test Item Value Reference Range Interpretation Comments Ferritin Lvl (test code = Ferritin Lvl) 13 24-380 [facility]2020-11-09 14:54:00 Test Item Value Reference Range Interpretation Comments Vitamin B12 Lvl (test code = Vitamin no gt 200-1100 B12 Lvl) [facility]2020-11-09 14:54:00 Test Item Value Reference Range Interpretation Comments Folate Lvl (test code = Folate Lvl) no gt [facility]2020-11-09 14:54:00 Test Item Value Reference Range Interpretation Comments Glucose Lvl (test code = Glucose Lvl) 69 65-99 [facility]2020-11-09 14:54:00 Test Item Value Reference Range Interpretation Comments BUN (test code = BUN) 14 7-25 [facility]2020-11-09 14:54:00 Test Item Value Reference Range Interpretation Comments Creatinine Lvl (test code = Creatinine 0.71 0.70-1.25 Lvl) [facility]2020-11-09 14:54:00 Test Item Value Reference Range Interpretation Comments eGFR NON-AFR. CENTRAL AFRICAN (test code = 96 eGFR NON-AFR. CENTRAL AFRICAN) [facility]2020-11-09 14:54:00 Test Item Value Reference Range Interpretation Comments eGFR (test code = eGFR 112 ) [facility]2020-11-09 14:54:00 Test Item Value Reference Range Interpretation Comments B/C Ratio (test code = B/C NOT APPLICABLE 6-22 Ratio) [place] 091990-11-09 14:54:00 Test Item Value Reference Range Interpretation Comments Sodium Lvl (test code = Sodium Lvl) 143 135-146 [place] 091990-11-09 14:54:00 Test Item Value Reference Range Interpretation Comments Potassium Lvl (test code = Potassium 3.8 3.5-5.3 Lvl) [place] 091990-11-09 14:54:00 Test Item Value Reference Range Interpretation Comments Chloride Lvl (test code = Chloride Lvl) 109 98-110 [place] 091990-11-09 14:54:00 Test Item Value Reference Range Interpretation Comments CO2 (test code = CO2) 29 20-32 [place] 091990-11-09 14:54:00 Test Item Value Reference Range Interpretation Comments Calcium Lvl (test code = Calcium Lvl) 8.6 8.6-10.3 [place] 091990-11-09 14:54:00 Test Item Value Reference Range Interpretation Comments Total Protein (test code = Total 6.0 6.1-8.1 Protein) [place] 091990-11-09 14:54:00 Test Item Value Reference Range Interpretation Comments Albumin Lvl (test code = Albumin Lvl) 3.5 3.6-5.1 [place] 091990-11-09 14:54:00 Test Item Value Reference Range Interpretation Comments Globulin (test code = Globulin) 2.5 1.9-3.7 [place] [address]-11-09 14:54:00 Test Item Value Reference Range Interpretation Comments A/G Ratio (test code = A/G Ratio) 1.4 1.0-2.5 [place] 091990-11-09 14:54:00 Test Item Value Reference Range Interpretation Comments Bili Total (test code = Bili Total) 0.6 0.2-1.2 [place] 091990-11-09 14:54:00 Test Item Value Reference Range Interpretation Comments Alk Phos (test code = Alk Phos) 111 35-144 [place] 091990-11-09 14:54:00 Test Item Value Reference Range Interpretation Comments ASPARTATE TRANSAMINASE (test code = 36 10-35 ASPARTATE TRANSAMINASE) [place] 091990-11-09 14:54:00 Test Item Value Reference Range Interpretation Comments ALANINE AMINOTRANSFERASE (test code = 28 9-46 ALANINE AMINOTRANSFERASE) [facility]2020-11-09 14:54:00 Test Item Value Reference Range Interpretation Comments Vitamin D, 25-OH, Total (test code = 37 30-100 Vitamin D, 25-OH, Total) [facility] ArlingtonPtxkjniAZPHPJLTSZ5047-60-17 14:54:00 Test Item Value Reference Range Interpretation Comments WBC X 10x3 (test code = WBC X 10x3) 5.4 3.8-10.8 [facility] ArlingtonCylgcwmQYNUWGRMOF7155-00-79 14:54:00 Test Item Value Reference Range Interpretation Comments RBC X 10x6 (test code = RBC X 10x6) 4.15 4.20-5.80 [place] 932940-11-09 14:54:00 Test Item Value Reference Range Interpretation Comments Hgb (test code = Hgb) 12.7 13.2-17.1 [facility] ArlingtonXgwpzdeGAAXRDPNXP8614-41-39 14:54:00 Test Item Value Reference Range Interpretation Comments Hct (test code = Hct) 38.8 38.5-50.0 [facility] ArlingtonLzvszmtEWHXQOTILF8866-69-64 14:54:00 Test Item Value Reference Range Interpretation Comments MCV (test code = MCV) 93.5 80.0-100.0 [facility] ArlingtonRbkxflyESKJHFHOPF8411-48-36 14:54:00 Test Item Value Reference Range Interpretation Comments MCH (test code = MCH) 30.6 pg 27.0-33.0 [facility] ArlingtonXrnzmlfENDLPHWFWI2230-62-82 14:54:00 Test Item Value Reference Range Interpretation Comments MCHC (test code = MCHC) 32.7 32.0-36.0 [facility] ArlingtonRglqvztAHOFOUNIJI4407-75-45 14:54:00 Test Item Value Reference Range Interpretation Comments RDW (test code = RDW) 13.2 11.0-15.0 [place] [address]-11-09 14:54:00 Test Item Value Reference Range Interpretation Comments Platelet (test code = Platelet) 209 140-400 [facility] ArlingtonYurwyrdTRZABPFKOR8970-35-36 14:54:00 Test Item Value Reference Range Interpretation Comments MPV (test code = MPV) 11.4 7.5-12.5 [facility] ArlingtonJhinlkxDCWGDRVKGW0487-58-34 14:54:00 Test Item Value Reference Range Interpretation Comments Neutrophils # (test code = Neutrophils 2511 6893-3159 #) [facility] ArlingtonPecisdmDFQDUTQUIE4502-35-66 14:54:00 Test Item Value Reference Range Interpretation Comments Lymphocytes # (test code = Lymphocytes 2008 850-3900 #) [facility] ArlingtonHchkdphXSGLQLFQMN8474-52-27 14:54:00 Test Item Value Reference Range Interpretation Comments Monocytes # (test code = Monocytes #) 621 200-950 [facility] ArlingtonByezijoVPABVOGMOZ2394-49-21 14:54:00 Test Item Value Reference Range Interpretation Comments Eosinophils # (test code = Eosinophils 221 15-500 #) [facility] ArlingtonAohtauuBHMBNUVWSV5488-58-30 14:54:00 Test Item Value Reference Range Interpretation Comments Basophils # (test code 38 See_Comment [Aut omated message] The = Basophils #) system which generated this result tra nsmitted reference range : <=200. The reference r sabino was not used to int erpret this result as normal/abnormal . [facility] ArlingtonHjbbtioZUWMXTOFYD1342-72-48 14:54:00 Test Item Value Reference Range Interpretation Comments Segs (test code = Segs) 46.5 [facility] ArlingtonSarrgbpAAMIFGKBEF9765-85-39 14:54:00 Test Item Value Reference Range Interpretation Comments Lymphocytes (test code = Lymphocytes) 37.2 [facility] ArlingtonYrjecpiKSQCWLGIMX3364-11-61 14:54:00 Test Item Value Reference Range Interpretation Comments Monocytes (test code = Monocytes) 11.5 [facility] ArlingtonEibksbeFKVDJJISFQ6239-44-81 14:54:00 Test Item Value Reference Range Interpretation Comments Eosinophils (test code = Eosinophils) 4.1 [facility] ArlingtonZttzgusWSVSNTXSHI1647-82-95 14:54:00 Test Item Value Reference Range Interpretation Comments Basophils (test code = Basophils) 0.7 [facility] AmericaMescsvySOPEQO3755-91-17 14:54:00 Test Item Value Reference Range Interpretation Comments Chol (test code = Chol) 118 [facility]138[facility] 14:54:00 Test Item Value Reference Range Interpretation Comments HDL (test code = HDL) 53 [facility] CenterWljjyddWVXDRK7797-11-09 14:54:00 Test Item Value Reference Range Interpretation Comments Trig (test code = Trig) 46 [facility] CenterRkkbxikMCXEAQ9903-54-56 14:54:00 Test Item Value Reference Range Interpretation Comments LDL (Calculated) (test code = LDL 52 (Calculated)) [facility] AmericaQmczphlSIOXVL7847-07-84 14:54:00 Test Item Value Reference Range Interpretation Comments CHD Risk (test code = CHD Risk) 2.2 [facility] AmericaHnccgrtXNTYIV6193-51-82 14:54:00 Test Item Value Reference Range Interpretation Comments Non HDL Chol (test code = Non HDL Chol) 65 [facility] AmericaPARATHYROID [id number] 14:54:00 Test Item Value Reference Range Interpretation Comments PTH Intact (test code = PTH Intact) 27 14-64 [facility] AmericaSPECIAL [id number] 14:54:00 Test Item Value Reference Range Interpretation Comments Hgb A1C (test code = Hgb A1C) 5.0 [facility][U] XRAY KNEE 3 VWS LEFT [id number] 08:24:00Images acquired, not reported on this accession number.[facility] PhysiciansPost Op [facility]is 29 Nokpsj7221-32-50 10:00:53 Test Item Value Reference Range Interpretation Comments Pain Interference: (test code = Pain 61.5 1 N Interference:) Pain Intensity: (test code = Pain 52.3 1 N Intensity:) Physical Function: (test code = 41 1 N Physical Function:) Satisfaction Role: (test code = 44.4 1 N Satisfaction Role:) [facility][U] XRAY KNEE 3 VWS LEFT [id number] 13:04:00Images acquired, not reported on this accession number.[facility] PhysiciansCHEM [id number] 11:35:00 Test Item Value Reference Range Interpretation Comments Glucose Lvl (test code = Glucose Lvl) 115 70-99 [facility] AmericaCHEM [id number] 11:35:00 Test Item Value Reference Range Interpretation Comments BUN (test code = BUN) 11 7-22 [facility] AmericaCHEM [id number] 11:35:00 Test Item Value Reference Range Interpretation Comments Creatinine Lvl (test code = Creatinine 0.52 0.50-1.40 Lvl) [facility] AmericaCHEM [id number] 11:35:00 Test Item Value Reference Range Interpretation Comments Sodium Lvl (test code = Sodium Lvl) 144 135-145 [facility] AmericaWh[facility] [place] [id number] 11:35:00 Test Item Value Reference Range Interpretation Comments Potassium Lvl (test code = Potassium 4.0 3.5-5.1 Lvl) [facility]2020-02-18 11:35:00 Test Item Value Reference Range Interpretation Comments Chloride Lvl (test code = Chloride Lvl) 110 95-109 [facility]2020-02-18 11:35:00 Test Item Value Reference Range Interpretation Comments CO2 (test code = CO2) 28 24-32 [place] 091990-02-18 11:35:00 Test Item Value Reference Range Interpretation Comments Calcium Lvl (test code = Calcium Lvl) 8.2 8.5-10.5 [place] 091990-02-18 11:35:00 Test Item Value Reference Range Interpretation Comments AGAP (test code = AGAP) 10.0 10.0-20.0 [place] 091990-02-18 11:35:00 Test Item Value Reference Range Interpretation Comments eGFR (test code = eGFR) 110 [facility] ArlingtonPohatcvBMVOHVZEUL4964-97-70 11:35:00 Test Item Value Reference Range Interpretation Comments Hgb (test code = Hgb) 11.7 14.0-18.0 [place] 932940-02-18 11:35:00 Test Item Value Reference Range Interpretation Comments Hct (test code = Hct) 35.2 42.0-54.0 [facility]2020-02-06 16:48:00 Test Item Value Reference Range Interpretation Comments Vitamin D, 25-OH, Total (test code = 36.0 30.0-100.0 Vitamin D, 25-OH, Total) [facility]2020-02-06 16:48:00 Test Item Value Reference Range Interpretation Comments Glucose Lvl (test code = Glucose Lvl) 95 70-99 [place] 091990-02-06 16:48:00 Test Item Value Reference Range Interpretation Comments BUN (test code = BUN) 14 7-22 [facility]2020-02-06 16:48:00 Test Item Value Reference Range Interpretation Comments Creatinine Lvl (test code = Creatinine 0.62 0.50-1.40 Lvl) [facility]2020-02-06 16:48:00 Test Item Value Reference Range Interpretation Comments Sodium Lvl (test code = Sodium Lvl) 147 135-145 [place] 091990-02-06 16:48:00 Test Item Value Reference Range Interpretation Comments Potassium Lvl (test code = Potassium 3.7 3.5-5.1 Lvl) [place] 091990-02-06 16:48:00 Test Item Value Reference Range Interpretation Comments Chloride Lvl (test code = Chloride Lvl) 112 95-109 [facility] [place] [id number] 16:48:00 Test Item Value Reference Range Interpretation Comments CO2 (test code = CO2) 28 24-32 [facility] [place] [id number] 16:48:00 Test Item Value Reference Range Interpretation Comments Calcium Lvl (test code = Calcium Lvl) 8.6 8.5-10.5 [facility] [place] [id number] 16:48:00 Test Item Value Reference Range Interpretation Comments Total Protein (test code = Total 5.9 6.4-8.4 Protein) [place] 091990-02-06 16:48:00 Test Item Value Reference Range Interpretation Comments Albumin Lvl (test code = Albumin Lvl) 2.7 3.5-5.0 [facility] [place] [id number] 16:48:00 Test Item Value Reference Range Interpretation Comments ALANINE AMINOTRANSFERASE 47 See_Comment [A utomated message] (test code = ALANINE The sys tem which AMINOTRANSFERASE) generated this result transmitted ref erence range: <=65. Th e reference range was not used to int erpret this result as normal/abnormal . [facility] [id number] 16:48:00 Test Item Value Reference Range Interpretation Comments ASPARTATE TRANSAMINASE 47 See_Comment [Aut omated message] (test code = ASPARTATE The s ystem which TRANSAMINASE) generated this result transmitted ref erence range: <=37. Th e reference range was not used to interpr et this result as normal/abnormal . [facility] [place] [id number] 16:48:00 Test Item Value Reference Range Interpretation Comments Alk Phos (test code = Alk Phos) 111 39-136 [facility] [place] [id number] 16:48:00 Test Item Value Reference Range Interpretation Comments Bili Total (test code = Bili Total) 0.6 0.2-1.3 [facility] [place] [id number] 16:48:00 Test Item Value Reference Range Interpretation Comments AGAP (test code = AGAP) 10.7 10.0-20.0 [facility] [id number] 16:48:00 Test Item Value Reference Range Interpretation Comments B/C Ratio (test code = B/C Ratio) 23 1 6-25 [facility] [id number] 16:48:00 Test Item Value Reference Range Interpretation Comments Globulin (test code = Globulin) 3.2 2.7-4.2 [facility]2020-02-06 16:48:00 Test Item Value Reference Range Interpretation Comments A/G Ratio (test code = A/G Ratio) 0.8 1 0.7-1.6 [place] 091990-02-06 16:48:00 Test Item Value Reference Range Interpretation Comments eGFR (test code = eGFR) 103 [facility] ArlingtonGoigoupJFEBKYQRWG1593-31-92 16:48:00 Test Item Value Reference Range Interpretation Comments WBC (test code = WBC) 4.1 3.7-10.4 [facility] ArlingtonQmvrddxPATIZQMTOE8021-26-09 16:48:00 Test Item Value Reference Range Interpretation Comments RBC (test code = RBC) 4.25 4.70-6.10 [facility] ArlingtonDxaptuiVAPLLAAQRL8706-55-07 16:48:00 Test Item Value Reference Range Interpretation Comments Hgb (test code = Hgb) 13.6 14.0-18.0 [facility] ArlingtonMldvhklPPFZZYAMUV3893-26-73 16:48:00 Test Item Value Reference Range Interpretation Comments Hct (test code = Hct) 40.6 42.0-54.0 [place] 932940-02-06 16:48:00 Test Item Value Reference Range Interpretation Comments MCV (test code = MCV) 95.5 80.0-94.0 [place] [address]-02-06 16:48:00 Test Item Value Reference Range Interpretation Comments MCH (test code = MCH) 31.9 pg 27.0-31.0 [place] 932940-02-06 16:48:00 Test Item Value Reference Range Interpretation Comments MCHC (test code = MCHC) 33.4 32.0-36.0 [place] [address]-02-06 16:48:00 Test Item Value Reference Range Interpretation Comments RDW (test code = RDW) 13.6 11.5-14.5 [facility] ArlingtonPvmjsbiXLWGDGETLD3233-11-42 16:48:00 Test Item Value Reference Range Interpretation Comments Platelet (test code = Platelet) 196 133-450 [facility] ArlingtonIwlkokoYUYYRAJQPM0861-80-28 16:48:00 Test Item Value Reference Range Interpretation Comments MPV (test code = MPV) 9.7 7.4-10.4 [facility] ArlingtonEmnikexEHFFINSXBV5630-69-86 16:48:00 Test Item Value Reference Range Interpretation Comments PROTIME (test code = PROTIME) 14.3 s 12.0-14.7 [facility] ArlingtonMpgzhowQFWSLJBKXC4074-96-73 16:48:00 Test Item Value Reference Range Interpretation Comments INR (test code = INR) 1.11 1 0.85-1.17 [facility] ArlingtonQaptkqlAGNFZIERTB1968-55-24 16:48:00 Test Item Value Reference Range Interpretation Comments aPTT (test code = aPTT) 33.4 s 22.9-35.8 [facility] ArlingtonYsaqsnuVWWTIOOIUN1972-61-77 16:48:00 Test Item Value Reference Range Interpretation Comments Segs (test code = Segs) 39.4 45.0-75.0 [facility] ArlingtonEprphhoLTMMQNVLCF9481-72-88 16:48:00 Test Item Value Reference Range Interpretation Comments Lymphocytes (test code = Lymphocytes) 43.6 20.0-40.0 [facility] ArlingtonFepyafkUFLLSBLEXR3080-05-55 16:48:00 Test Item Value Reference Range Interpretation Comments Monocytes (test code = Monocytes) 12.5 2.0-12.0 [facility] ArlingtonDbjsmhcIVSJXYVZXI9408-61-86 16:48:00 Test Item Value Reference Range Interpretation Comments Eosinophils (test code = 3.5 See_Comment [A utomated message] The Eosinophils) system which ge nerated this result tra nsmitted reference range : <=4.0. The reference r sabino was not used to int erpret this result as normal/abnormal . [facility] ArlingtonIlyegybVNMUXMDFFU1030-52-15 16:48:00 Test Item Value Reference Range Interpretation Comments Basophils (test code = 1.0 See_Comment [Aut omated message] The Basophils) system which ge nerated this result tra nsmitted reference range : <=1.0. The reference r sabino was not used to int erpret this result as normal/abnormal . [place] 932940-02-06 16:48:00 Test Item Value Reference Range Interpretation Comments Neutrophils # (test code = Neutrophils 1.6 1.5-8.1 #) [facility] ArlingtonJmyojwsHKAHATZMZU4309-47-92 16:48:00 Test Item Value Reference Range Interpretation Comments Lymphocytes # (test code = Lymphocytes 1.8 1.0-5.5 #) [facility] ArlingtonTngvcdzKKPCGVJEIB9500-78-53 16:48:00 Test Item Value Reference Range Interpretation Comments Monocytes # (test code 0.5 See_Comment [Aut omated message] The = Monocytes #) system which generated this result tra nsmitted reference range : <=0.8. The reference r sabino was not used to int erpret this result as normal/abnormal . [facility] ArlingtonAupbmwxEJQHNFVTCC0332-62-49 16:48:00 Test Item Value Reference Range Interpretation Comments Eosinophils # (test code 0.1 See_Comment [A utomated message] The = Eosinophils #) system whic h generated this result tra nsmitted reference range : <=0.5. The reference r sabino was not used to int erpret this result as normal/abnormal . [facility] AND [id number] 16:48:00 Test Item Value Reference Range Interpretation Comments UA Color (test code = Yellow *NA*(12/28/19 UA Color) 10:48 AM) [facility] AND [id number] 16:48:00 Test Item Value Reference Range Interpretation Comments UA Turbidity (test code = Clear (12/28/19 10:48 UA Turbidity) AM) [facility] AND [id number] 16:48:00 Test Item Value Reference Range Interpretation Comments UA Spec Grav (test code = UA Spec 1.010 1 Grav) [facility] AND [id number] 16:48:00 Test Item Value Reference Range Interpretation Comments UA pH (test code = UA pH) 7.0 1 5.0-8.0 [facility] AND [id number] 16:48:00 Test Item Value Reference Range Interpretation Comments UA Protein (test code Negative (12/28/19 10:48 = UA Protein) AM) [facility] AND [id number] 16:48:00 Test Item Value Reference Range Interpretation Comments UA Glucose (test code Negative (12/28/19 10:48 = UA Glucose) AM) [facility] [id number] 16:48:00 Test Item Value Reference Range Interpretation Comments UA Ketones (test code = Trace *ABN*(12/28/19 UA Ketones) 10:48 AM) [facility] [id number] 16:48:00 Test Item Value Reference Range Interpretation Comments UA Bili (test code = Negative *NA*(12/28/19 UA Bili) 10:48 AM) [facility] [id number] 16:48:00 Test Item Value Reference Range Interpretation Comments UA Blood (test code = Negative (12/28/19 10:48 UA Blood) AM) [facility] [id number] 16:48:00 Test Item Value Reference Range Interpretation Comments UA Urobilinogen (test code = UA 1.0 0.1-1.0 Urobilinogen) [facility] [id number] 16:48:00 Test Item Value Reference Range Interpretation Comments UA Nitrite (test code Negative (12/28/19 10:48 = UA Nitrite) AM) [facility] [id number] 16:48:00 Test Item Value Reference Range Interpretation Comments UA Leuk Est (test Negative (12/28/19 10:48 code = UA Leuk Est) AM) [facility] [id number] 16:48:00 Test Item Value Reference Range Interpretation Comments UA Sq Epi (test code = UA Sq Epi) Rare /LPF [facility] AND [id number] 16:48:00 Test Item Value Reference Range Interpretation Comments UA WBC (test code = UA WBC) 0-2 /HPF [facility] [id number] 16:48:00 Test Item Value Reference Range Interpretation Comments UA RBC (test code = 0-2 /HPF See_Comment [Automa brigido message] The UA RBC) system which ge nerated this result tra nsmitted reference range : <=2. The reference range was not used to interpr et this result as alexander l/abnormal. [facility] [id number] 16:48:00 Test Item Value Reference Range Interpretation Comments UA Bacteria (test code = UA Occasional /HPF Bacteria) [facility][U] XRAY KNEE 3 VWS RIGHT [id number] 08:50:00Images acquired, not reported on this accession number.[facility] PhysiciansPost Op [facility]is 29 Bynfau9776-07-90 09:36:17 Test Item Value Reference Range Interpretation Comments Pain Interference: (test code = Pain 61.5 1 N Interference:) Pain Intensity: (test code = Pain 52.3 1 N Intensity:) Physical Function: (test code = 32 1 N Physical Function:) Satisfaction Role: (test code = 48 1 N Satisfaction Role:) [place] RlyptmrylnHWQLPRAKZZ5228-00-39 10:34:00 Test Item Value Reference Range Interpretation Comments Hgb (test code = Hgb) 12.4 14.0-18.0 [facility] ArlingtonSuctqvxONBGBSTGDN1698-73-84 10:34:00 Test Item Value Reference Range Interpretation Comments Hct (test code = Hct) 37.4 42.0-54.0 [facility]2019-11-26 10:52:00 Test Item Value Reference Range Interpretation Comments Glucose Lvl (test code = Glucose Lvl) 140 70-99 [facility]2019-11-26 10:52:00 Test Item Value Reference Range Interpretation Comments BUN (test code = BUN) 12 7-22 [facility]2019-11-26 10:52:00 Test Item Value Reference Range Interpretation Comments Creatinine Lvl (test code = Creatinine 0.62 0.50-1.40 Lvl) [facility]2019-11-26 10:52:00 Test Item Value Reference Range Interpretation Comments Sodium Lvl (test code = Sodium Lvl) 143 135-145 [facility]2019-11-26 10:52:00 Test Item Value Reference Range Interpretation Comments Potassium Lvl (test code = Potassium 4.2 3.5-5.1 Lvl) [facility]2019-11-26 10:52:00 Test Item Value Reference Range Interpretation Comments Chloride Lvl (test code = Chloride Lvl) 112 95-109 [facility]2019-11-26 10:52:00 Test Item Value Reference Range Interpretation Comments CO2 (test code = CO2) 24 24-32 [facility]2019-11-26 10:52:00 Test Item Value Reference Range Interpretation Comments Calcium Lvl (test code = Calcium Lvl) 8.5 8.5-10.5 [facility] [id number] 10:52:00 Test Item Value Reference Range Interpretation Comments eGFR (test code = eGFR) 103 [facility] [id number] 10:52:00 Test Item Value Reference Range Interpretation Comments AGAP (test code = AGAP) 11.2 10.0-20.0 [facility] ArlingtonZkmdlgkILWCSMFHQC2430-47-11 10:52:00 Test Item Value Reference Range Interpretation Comments Hgb (test code = Hgb) 12.7 14.0-18.0 [facility] ArlingtonXhkbpzuTNWAOQUBBY4787-94-68 10:52:00 Test Item Value Reference Range Interpretation Comments Hct (test code = Hct) 38.2 42.0-54.0 [facility] AND [id number] 15:30:00 Test Item Value Reference Range Interpretation Comments UA Protein (test code Negative (10/05/19 9:30 = UA Protein) AM) [facility] AND [id number] 15:30:00 Test Item Value Reference Range Interpretation Comments UA Glucose (test code Negative (10/05/19 9:30 = UA Glucose) AM) [facility] AND [id number] 15:30:00 Test Item Value Reference Range Interpretation Comments UA Ketones (test code Negative *NA*(10/05/19 = UA Ketones) 9:30 AM) [facility] AND [id number] 15:30:00 Test Item Value Reference Range Interpretation Comments UA Bili (test code = Negative *NA*(10/05/19 UA Bili) 9:30 AM) [facility] AND [id number] 15:30:00 Test Item Value Reference Range Interpretation Comments UA Blood (test code = Negative (10/05/19 9:30 UA Blood) AM) [facility] AND [id number] 15:30:00 Test Item Value Reference Range Interpretation Comments UA Urobilinogen (test code = UA 0.2 0.1-1.0 Urobilinogen) [facility] AND [id number] 15:30:00 Test Item Value Reference Range Interpretation Comments UA Nitrite (test code Positive *ABN*(10/05/19 = UA Nitrite) 9:30 AM) [facility] AND [id number] 15:30:00 Test Item Value Reference Range Interpretation Comments UA Leuk Est (test Moderate *ABN*(10/05/19 code = UA Leuk Est) 9:30 AM) [facility] [id number] 15:30:00 Test Item Value Reference Range Interpretation Comments UA Sq Epi (test code = UA Sq Epi) Few /LPF [facility] [id number] 15:30:00 Test Item Value Reference Range Interpretation Comments UA WBC (test code = UA WBC) 6-10 /HPF [facility] [id number] 15:30:00 Test Item Value Reference Range Interpretation Comments UA RBC (test code = 0-2 /HPF See_Comment [Automa brigido message] The UA RBC) system which ge nerated this result tra nsmitted reference range : <=2. The reference range was not used to interpr et this result as alexander l/abnormal. [facility] [id number] 15:30:00 Test Item Value Reference Range Interpretation Comments UA Bacteria (test code = UA Many /HPF Bacteria) [facility] [id number] 15:30:00 Test Item Value Reference Range Interpretation Comments Vitamin D, 25-OH, Total (test code = 33.9 30.0-100.0 Vitamin D, 25-OH, Total) [facility]UfqdhduRIRLLNCEYIMB8484-74-16 15:30:00 Test Item Value Reference Range Interpretation Comments AGAP (test code = AGAP) 12.7 10.0-20.0 [facility]itdkebCFMVEMJIIYQL8608-69-04 15:30:00 Test Item Value Reference Range Interpretation Comments B/C Ratio (test code = B/C Ratio) 24 1 6-25 [facility] CenterDbdhmonESIYIACUZBAB2311-13-19 15:30:00 Test Item Value Reference Range Interpretation Comments Globulin (test code = Globulin) 3.3 2.7-4.2 [facility] PbrczcnJFLOMZIUCTWN5546-48-97 15:30:00 Test Item Value Reference Range Interpretation Comments A/G Ratio (test code = A/G Ratio) 0.9 1 0.7-1.6 [facility] CenterQutqlcyVEGOQNBMABSI9225-85-57 15:30:00 Test Item Value Reference Range Interpretation Comments Glucose Lvl (test code = Glucose Lvl) 94 70-99 [facility]mjupdGWJCESYNOSUF2220-48-79 15:30:00 Test Item Value Reference Range Interpretation Comments BUN (test code = BUN) 15 7-22 [facility] SystemZnokpikIQMQOKUALNQX5535-42-12 15:30:00 Test Item Value Reference Range Interpretation Comments Creatinine Lvl (test code = Creatinine 0.62 0.50-1.40 Lvl) [facility]SvxzpzgYXLYZCECTOGB4442-16-31 15:30:00 Test Item Value Reference Range Interpretation Comments Sodium Lvl (test code = Sodium Lvl) 144 135-145 [facility] SystemZdiaehmZVDBIDPTVZJJ4309-25-41 15:30:00 Test Item Value Reference Range Interpretation Comments Potassium Lvl (test code = Potassium 3.7 3.5-5.1 Lvl) [facility] SystemGupheprPLPKLQITECTP0040-36-54 15:30:00 Test Item Value Reference Range Interpretation Comments Chloride Lvl (test code = Chloride Lvl) 110 95-109 [facility] SystemEgzuswxHYTAOZMQVAMJ9616-69-58 15:30:00 Test Item Value Reference Range Interpretation Comments CO2 (test code = CO2) 25 24-32 [facility] SystemUkiimwcAAKMQQJVVVPE2426-30-24 15:30:00 Test Item Value Reference Range Interpretation Comments Calcium Lvl (test code = Calcium Lvl) 8.8 8.5-10.5 [facility] SystemHfzpbwhJANJBWUVFQUD4690-67-30 15:30:00 Test Item Value Reference Range Interpretation Comments Total Protein (test code = Total 6.2 6.4-8.4 Protein) [facility] SystemXskkxhmIZZKQMUKHWTR5868-34-35 15:30:00 Test Item Value Reference Range Interpretation Comments Albumin Lvl (test code = Albumin Lvl) 2.9 3.5-5.0 [facility] SystemHosrzwrSAHRRQCXWJID2262-73-18 15:30:00 Test Item Value Reference Range Interpretation Comments ALANINE AMINOTRANSFERASE 57 See_Comment [A utomated message] (test code = ALANINE The sys tem which AMINOTRANSFERASE) generated this result transmitted ref erence range: <=65. Th e reference range was not used to int erpret this result as normal/abnormal . [facility] SystemYhzhxivMSVRROLNZBFY5523-13-50 15:30:00 Test Item Value Reference Range Interpretation Comments ASPARTATE TRANSAMINASE 41 See_Comment [Aut omated message] (test code = ASPARTATE The s ystem which TRANSAMINASE) generated this result transmitted ref erence range: <=37. Th e reference range was not used to interpr et this result as normal/abnormal . [facility] SystemEctttraBMLSSDGQYECE6323-51-90 15:30:00 Test Item Value Reference Range Interpretation Comments Alk Phos (test code = Alk Phos) 111 39-136 [facility] SystemLwezdrqHPZNOQEJJGXQ2190-28-52 15:30:00 Test Item Value Reference Range Interpretation Comments Bili Total (test code = Bili Total) 0.5 0.2-1.3 [facility] SystemLurigtrSGHYFYJNFKEL4151-83-80 15:30:00 Test Item Value Reference Range Interpretation Comments eGFR (test code = eGFR) 103 [facility] ArlingtonRsqnhykXUEMRUPQFQ0228-32-87 15:30:00 Test Item Value Reference Range Interpretation Comments Segs (test code = Segs) 49.9 45.0-75.0 [facility] ArlingtonPrazidbPECDMFCLAL3464-57-27 15:30:00 Test Item Value Reference Range Interpretation Comments Lymphocytes (test code = Lymphocytes) 37.1 20.0-40.0 [facility] ArlingtonXtzyaigJEDSIHQYYI7596-74-03 15:30:00 Test Item Value Reference Range Interpretation Comments Monocytes (test code = Monocytes) 9.2 2.0-12.0 [facility] ArlingtonGgrjspfGEKEBIKDIS2217-57-86 15:30:00 Test Item Value Reference Range Interpretation Comments Eosinophils (test code = 3.0 See_Comment [A utomated message] The Eosinophils) system which ge nerated this result tra nsmitted reference range : <=4.0. The reference r sabino was not used to int erpret this result as normal/abnormal . [facility] ArlingtonBqvcwmbQDDAWYDWRU9102-99-84 15:30:00 Test Item Value Reference Range Interpretation Comments Basophils (test code = 0.8 See_Comment [Aut omated message] The Basophils) system which ge nerated this result tra nsmitted reference range : <=1.0. The reference r sabino was not used to int erpret this result as normal/abnormal . [facility] ArlingtonNybfwxtNGQNXYZBFX7644-01-22 15:30:00 Test Item Value Reference Range Interpretation Comments Neutrophils # (test code = Neutrophils 3.2 1.5-8.1 #) [facility] ArlingtonXqxxeauQHBBNWTMFX6490-89-65 15:30:00 Test Item Value Reference Range Interpretation Comments Lymphocytes # (test code = Lymphocytes 2.4 1.0-5.5 #) [facility] ArlingtonFjpdwmsHGJCQKQNJN8054-42-66 15:30:00 Test Item Value Reference Range Interpretation Comments Monocytes # (test code 0.6 See_Comment [Aut omated message] The = Monocytes #) system which generated this result tra nsmitted reference range : <=0.8. The reference r sabino was not used to int erpret this result as normal/abnormal . [facility] ArlingtonCqnbrtqCKMVEQLVUA3939-03-55 15:30:00 Test Item Value Reference Range Interpretation Comments Eosinophils # (test code 0.2 See_Comment [A utomated message] The = Eosinophils #) system whic h generated this result tra nsmitted reference range : <=0.5. The reference r sabino was not used to int erpret this result as normal/abnormal . [facility] ArlingtonAebtemwITTGXKCECJ7552-13-70 15:30:00 Test Item Value Reference Range Interpretation Comments WBC (test code = WBC) 6.3 3.7-10.4 [facility] ArlingtonNajinpkBEBDAJMJSP5477-09-00 15:30:00 Test Item Value Reference Range Interpretation Comments RBC (test code = RBC) 4.23 4.70-6.10 [facility] ArlingtonDsjgbmgRDJDVJWHKD9582-90-11 15:30:00 Test Item Value Reference Range Interpretation Comments Hgb (test code = Hgb) 14.2 14.0-18.0 [facility] ArlingtonGbuyskjERJRBCBRMP7728-64-76 15:30:00 Test Item Value Reference Range Interpretation Comments Hct (test code = Hct) 41.8 42.0-54.0 [facility] ArlingtonVtddvvbQACVVDAYGO7073-79-26 15:30:00 Test Item Value Reference Range Interpretation Comments MCV (test code = MCV) 98.8 80.0-94.0 [facility] ArlingtonDkaksijSRMDNRFRVO9462-63-81 15:30:00 Test Item Value Reference Range Interpretation Comments MCH (test code = MCH) 33.6 pg 27.0-31.0 [facility] ArlingtonJymcpaqUWLLNLDUDO5868-22-11 15:30:00 Test Item Value Reference Range Interpretation Comments MCHC (test code = MCHC) 34.0 32.0-36.0 [facility] ArlingtonEttazheJMQXLPGMMQ2050-81-21 15:30:00 Test Item Value Reference Range Interpretation Comments RDW (test code = RDW) 12.7 11.5-14.5 [facility] AmericaOgqfnowGEMHEBVSOU8151-77-19 15:30:00 Test Item Value Reference Range Interpretation Comments Platelet (test code = Platelet) 189 133-450 [facility] QnxezqvFDMVOOEVKB7684-95-48 15:30:00 Test Item Value Reference Range Interpretation Comments MPV (test code = MPV) 10.0 7.4-10.4 [facility] AmericaYzfwvaiATAEOGWCNN0935-40-98 15:30:00 Test Item Value Reference Range Interpretation Comments PROTIME (test code = PROTIME) 13.7 s 12.0-14.7 [facility] JnnuiljNHGFMZXWOL1272-54-99 15:30:00 Test Item Value Reference Range Interpretation Comments aPTT (test code = aPTT) 33.9 s 22.9-35.8 [facility] AmericaFpfirvtIOLLDZPQXS2003-61-70 15:30:00 Test Item Value Reference Range Interpretation Comments INR (test code = INR) 1.07 1 0.85-1.17 [facility] NJWMZ2401-88-70 15:30:00 Test Item Value Reference Range Interpretation Comments UA Color (test code = Yellow *NA*(10/05/19 UA Color) 9:30 AM) [facility] AND RKFGR2880-80-22 15:30:00 Test Item Value Reference Range Interpretation Comments UA Turbidity (test code = Clear (10/05/19 9:30 UA Turbidity) AM) [facility] AND IKUYX5826-42-50 15:30:00 Test Item Value Reference Range Interpretation Comments UA Spec Grav (test *NA*(10/05/19 9:30 AM) code = UA Spec Grav) [facility] AND [id number] 15:30:00 Test Item Value Reference Range Interpretation Comments UA pH (test code = UA pH) 7.0 1 5.0-8.[address] [id number] 18:49:00 Test Item Value Reference Range Interpretation Comments Vitamin B12 Lvl (test code = Vitamin no gt 200-1100 B12 Lvl) [facility] MKOZK9875-74-19 18:49:00 Test Item Value Reference Range Interpretation Comments Ammonia (test code = Ammonia) 214 [facility] Promis 29 Tgpvap9225-66-62 09:48:59 Test Item Value Reference Range Interpretation Comments Pain Interference: (test code = Pain 66.9 1 N Interference:) Pain Intensity: (test code = Pain 62.1 1 N Intensity:) Physical Function: (test code = 30.4 1 N Physical Function:) Satisfaction Role: (test code = 41.9 1 N Satisfaction Role:) [facility][U] XR KNEE 3 VWS BEVHALOBL3519-19-86 07:24:00Images acquired, not reported on this accession number.[facility] PhysiciansANEMIA [id number] 13:46:00 Test Item Value Reference Range Interpretation Comments Vitamin B12 Lvl (test code = Vitamin no gt 200-1100 B12 Lvl) [facility]2018-10-29 13:46:00 Test Item Value Reference Range Interpretation Comments % Satur Fe (test code = % Satur Fe) 21 15-60 [facility]2018-10-29 13:46:00 Test Item Value Reference Range Interpretation Comments Ferritin Lvl (test code = Ferritin Lvl) 161 20-380 [facility]2018-10-29 13:46:00 Test Item Value Reference Range Interpretation Comments Iron (test code = Iron) 70 50-180 [facility]2018-10-29 13:46:00 Test Item Value Reference Range Interpretation Comments TIBC (test code = TIBC) 337 1 250-425 [facility]2018-10-29 13:46:00 Test Item Value Reference Range Interpretation Comments Folate Lvl (test code = Folate Lvl) 18.0 [facility]2018-10-29 13:46:00 Test Item Value Reference Range Interpretation Comments Vitamin D, 25-OH, Total (test code = 32 30-100 Vitamin D, 25-OH, Total) [facility]2018-10-29 13:46:00 Test Item Value Reference Range Interpretation Comments B/C Ratio (test code = B/C Ratio) 17 6-22 [facility]2018-10-29 13:46:00 Test Item Value Reference Range Interpretation Comments eGFR (test code = eGFR 118 ) [facility]2018-10-29 13:46:00 Test Item Value Reference Range Interpretation Comments Creatinine Lvl (test code = Creatinine 0.64 0.70-1.25 Lvl) [facility]2018-10-29 13:46:00 Test Item Value Reference Range Interpretation Comments eGFR NON-AFR. CENTRAL AFRICAN (test code = 102 eGFR NON-AFR. CENTRAL AFRICAN) [facility]2018-10-29 13:46:00 Test Item Value Reference Range Interpretation Comments Sodium Lvl (test code = Sodium Lvl) 141 135-146 [facility]2018-10-29 13:46:00 Test Item Value Reference Range Interpretation Comments Total Protein (test code = Total 6.0 6.1-8.1 Protein) [facility]2018-10-29 13:46:00 Test Item Value Reference Range Interpretation Comments Albumin Lvl (test code = Albumin Lvl) 3.1 3.6-5.1 [facility]2018-10-29 13:46:00 Test Item Value Reference Range Interpretation Comments Calcium Lvl (test code = Calcium Lvl) 8.8 8.6-10.3 [facility]2018-10-29 13:46:00 Test Item Value Reference Range Interpretation Comments Glucose Lvl (test code = Glucose Lvl) 87 65-99 [facility]2018-10-29 13:46:00 Test Item Value Reference Range Interpretation Comments BUN (test code = BUN) 11 7-25 [facility]2018-10-29 13:46:00 Test Item Value Reference Range Interpretation Comments Potassium Lvl (test code = Potassium 4.3 3.5-5.3 Lvl) [facility]2018-10-29 13:46:00 Test Item Value Reference Range Interpretation Comments ALANINE AMINOTRANSFERASE (test code = 58 9-46 ALANINE AMINOTRANSFERASE) [facility]2018-10-29 13:46:00 Test Item Value Reference Range Interpretation Comments Bili Total (test code = Bili Total) 0.6 0.2-1.2 [facility]2018-10-29 13:46:00 Test Item Value Reference Range Interpretation Comments Alk Phos (test code = Alk Phos) 102 40-115 [facility]2018-10-29 13:46:00 Test Item Value Reference Range Interpretation Comments ASPARTATE TRANSAMINASE (test code = 51 10-35 ASPARTATE TRANSAMINASE) [facility]2018-10-29 13:46:00 Test Item Value Reference Range Interpretation Comments Chloride Lvl (test code = Chloride Lvl) 104 98-110 [facility]2018-10-29 13:46:00 Test Item Value Reference Range Interpretation Comments CO2 (test code = CO2) 29 20-32 [facility]2018-10-29 13:46:00 Test Item Value Reference Range Interpretation Comments A/G Ratio (test code = A/G Ratio) 1.1 1.0-2.5 [facility]2018-10-29 13:46:00 Test Item Value Reference Range Interpretation Comments Globulin (test code = Globulin) 2.9 1.9-3.7 [facility] ArlingtonVtxkegzIAMQCJCDXQ3848-21-08 13:46:00 Test Item Value Reference Range Interpretation Comments Basophils # (test code 173 See_Comment [Aut omated message] The = Basophils #) system which generated this result tra nsmitted reference range : <=200. The reference r sabino was not used to int erpret this result as normal/abnormal . [facility] ArlingtonCbirehhRAFGVFEBBG6529-07-98 13:46:00 Test Item Value Reference Range Interpretation Comments Monocytes (test code = Monocytes) 9.3 [facility] ArlingtonGpqmgfqYLDSJMCQLS9104-66-83 13:46:00 Test Item Value Reference Range Interpretation Comments Segs (test code = Segs) 45.8 [facility] ArlingtonIemrbiaZBANMVVJTO7926-49-67 13:46:00 Test Item Value Reference Range Interpretation Comments Monocytes # (test code = Monocytes #) 642 200-950 [facility] ArlingtonTzlcftaIKGBMUHBBC7292-96-87 13:46:00 Test Item Value Reference Range Interpretation Comments Eosinophils # (test code = Eosinophils 290 15-500 #) [facility] ArlingtonOiaqwgaUBCVBZIRDE4761-71-02 13:46:00 Test Item Value Reference Range Interpretation Comments Lymphocytes # (test code = Lymphocytes 2636 850-3900 #) [facility] ArlingtonVxajeouTRAHDLQQTJ8017-11-26 13:46:00 Test Item Value Reference Range Interpretation Comments Lymphocytes (test code = Lymphocytes) 38.2 [facility] ArlingtonKbjihnoQCLEHWMOUO5053-33-48 13:46:00 Test Item Value Reference Range Interpretation Comments Eosinophils (test code = Eosinophils) 4.2 [facility] ArlingtonMfjomnxYQLUWZRFIK3442-29-79 13:46:00 Test Item Value Reference Range Interpretation Comments MPV (test code = MPV) 11.0 7.5-12.5 [facility] ArlingtonUsawrinRWVINNVTKF0074-07-22 13:46:00 Test Item Value Reference Range Interpretation Comments Neutrophils # (test code = Neutrophils 3160 9167-7649 #) [facility] ArlingtonRsatblwJOSLGGQKUL9660-26-77 13:46:00 Test Item Value Reference Range Interpretation Comments RDW (test code = RDW) 11.8 11.0-15.0 [facility] ArlingtonSfketpuUUXQMIRNVX7141-43-54 13:46:00 Test Item Value Reference Range Interpretation Comments Platelet (test code = Platelet) 287 140-400 [facility] ArlingtonVegauirDACYBJWYXU4084-59-71 13:46:00 Test Item Value Reference Range Interpretation Comments MCHC (test code = MCHC) 33.7 32.0-36.0 [facility] ArlingtonSizkvmjKXUSZZTQVP8380-34-33 13:46:00 Test Item Value Reference Range Interpretation Comments MCV (test code = MCV) 99.5 80.0-100.0 [facility] ArlingtonXifgvqwEZADKOJRZN0059-22-49 13:46:00 Test Item Value Reference Range Interpretation Comments MCH (test code = MCH) 33.6 pg 27.0-33.0 [facility] ArlingtonMkvvvbhYYVMMARBMK6639-73-69 13:46:00 Test Item Value Reference Range Interpretation Comments Hct (test code = Hct) 44.2 38.5-50.0 [facility] ArlingtonAngngqzDDIVGOKZCN3062-64-96 13:46:00 Test Item Value Reference Range Interpretation Comments Hgb (test code = Hgb) 14.9 13.2-17.1 [facility] ArlingtonJtcopoyHWGDOWOPYP7097-88-59 13:46:00 Test Item Value Reference Range Interpretation Comments Basophils (test code = Basophils) 2.5 [facility] ArlingtonGcnzronYJVUFLIBFS8828-48-18 13:46:00 Test Item Value Reference Range Interpretation Comments Diff Comment (test code = Diff SEE COMMENT Comment) [facility] ArlingtonKwpuobjOLWZOBMFMW6668-90-21 13:46:00 Test Item Value Reference Range Interpretation Comments RBC X 10x6 (test code = RBC X 10x6) 4.44 4.20-5.80 [facility] ArlingtonDvnfbcnMXDTWPZRMV5701-73-53 13:46:00 Test Item Value Reference Range Interpretation Comments WBC X 10x3 (test code = WBC X 10x3) 6.9 3.8-10.8 [facility]OvmxtdjIPPCLA6793-72-90 13:46:00 Test Item Value Reference Range Interpretation Comments CHD Risk (test code = CHD Risk) 5.0 [facility] CenterZywxqwaHDOKMC3634-87-46 13:46:00 Test Item Value Reference Range Interpretation Comments Non HDL Chol (test code = Non HDL Chol) 105 [facility] AmericaKnfvswbOBUVXZ3442-23-70 13:46:00 Test Item Value Reference Range Interpretation Comments Trig (test code = Trig) 96 [facility] AmericaKmlyxhbPKODIX5656-66-38 13:46:00 Test Item Value Reference Range Interpretation Comments LDL (Calculated) (test code = LDL 86 (Calculated)) [facility] CenterArkptguUURGPO9793-84-06 13:46:00 Test Item Value Reference Range Interpretation Comments Chol (test code = Chol) 131 [facility] AmericaVymnckfXKOSWL6445-67-74 13:46:00 Test Item Value Reference Range Interpretation Comments HDL (test code = HDL) 26 [facility] AmericaPARATHYROID FTIKSMY1203-71-01 13:46:00 Test Item Value Reference Range Interpretation Comments PTH Intact (test code = PTH Intact) 33 14-64 [facility] AmericaSPECIAL VVKMWUESW4168-16-01 13:46:00 Test Item Value Reference Range Interpretation Comments Hgb A1C (test code = Hgb A1C) 4.7 [facility] Notes Date/Time Note Provider Source 2022-03-22 09:47:00-00:00 [facility] Hospitalist Discharge Summary REPORT#:[id number] REPORT STATUS: Signed DATE:03/22/22 TIME: 946 PATIENT: JOSEF VEGA UNIT #: [id number] ROOM/BED: [place] [address] : [birth year] AGE: 71 SEX: M ATTEND: Den Mello MD ADM AUTHOR: Kelly Swan PRINCIPAL SOFTWARE ARCHITECT * ALL edits or amendments must be made on the el [employer]/computer document * Kelly Swan 03/22/22 0947: General Information Problem List/A P: 1. Hepatic encephalopathy 2. Hypokalemia 3. Elevated lactic acid level 4. Transaminitis 5. Hypernatremia Date of admission: Observation Start Date: 03/21/22 Date of admission: 03/21/22 Discharge date: 05/01/22 Hospital course: 71-year-old male with no kno wn past medical history or surgical history, brought in via family member for evaluation of alteratio n of mental status. Per ER staffing report, the family member reported a hi story of liver cirrhosis with elevated ammonia. The ER provider reports that t he patient was in the hotel room wondering in the holdin g onto the [place] and the decided to take him to the emergency department for evaluation and socrates tment. The work-up in the emergency department shows a sodium of 146, potassium of 3.4, and a lactic acid of 2.3, AST of 53, ALT of 62, ammonia of 314. Aime galdamez was assessed and chart was reviewed. Patient is alert and oriented and states that he is ready to go home. Patient's ammonia level is now 97. Patient is to continue on home medications and follow with PCP and GI as outpat ient. Patient be discharged home today. Full code Time Spent 45 minutes Pt. condition on discharge: improved, stable Objective VS/I O Last Documented: Result Date Time Pulse Ox 96 03/22 0645 B/P 118/57 03/22 0645 B/P Mean 77 03/22 0645 O2 Delivery Room air 03/22 0645 Pulse 68 03/22 0645 Resp 18 03/22 0645 Temp 36.7 03/21 0013 General appearance: alert, awake, oriented, no a cute distress, no respiratory distress Head/Eyes: atraumatic, EOMI ENT: moist mucosal membranes, normal dentition Neck: full range of motion, non-tender Cardiovascular: normal capillary refill, normal heart sounds Respiratory: aerating well, clear to auscultatio n Abdomen: obese, non-tender, soft Genitourinary: no flank pain, no urinary cathete r Extremities: no clubbing, no cyanosis Musculoskeletal: normal inspection, painless ran ge of motion 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 mental status, disoriented, a lert Considered stroke alert: no Skin: dry, intact, normal color Lymphatics: neck normal, no lymphadenopathy Psychiatry: normal affect Results Findings/Data: Laboratory Tests: 03/22 03/22 03/22 03/21 03/21 6906 [id number] 2018 Chemistry Sodium (136 - 145 mmol/L) 145 Potassium (3.5 - 5.1 mmol/L) 3.5 Chloride (98 - 113 mmol/L) 115 H Carbon Dioxide (21 - 32 mmol/L) 22 BUN (7 - 18 mg/dL) 12 Creatinine (0.6 - 1.0 mg/dL) 0.6 Glomerular Filtr Rate 142 Glucose (65 - 99 mg/dL) 119 H Lactic Acid (0.4 - 2.0 mmol/L) 1.90 2.70 *H 2.4 0 *H Calcium (7.8 - 10.9 mg/dL) 8.8 Magnesium (1.5 - 2.1 mg/dL) 1.9 Total Bilirubin (0.0 - 1.1 mg/dL) 1.3 H Direct Bilirubin (0.05 - 0.3 mg/dL) 0.4 H Indirect Bilirubin (0.0 - 0.6 mg/dL) 0.9 H AST (15 - 37 U/L) 88 H ALT (10 - 30 U/L) 63 H Total Alk Phosphatase (45 - 117 U/L) 113 Ammonia (11 - 32 umol/L) 96 H Total Protein (6.4 - 8.2 g/dL) 5.9 L Albumin (3.4 - 5.0 g/dL) 2.7 L Globulin (2.3 - 3.5 gm/dL) 3.2 Albumin/Globulin Ratio (1.5 - 2.2) 0.8 L Hematology WBC (4.8 - 10.8 K/mm3) 7.5 RBC (4.2 - 5.4 M/mm3) 4.16 L Hgb (13.5 - 17.5 gm/DL) 13.8 Hct (37.1 - 51.5 %) 41.8 MCV (81 - 99 fL) 100.5 H MCH (27 - 31 pg) 33.2 H MCHC (33 - 37 gm/dL) 33.0 RDW (11.5 - 14.5 %) 13.3 Plt Count (130 - 400 X10(3)) 164 MPV (9.4 - 12.4 fL) 10.6 03/21 03/21 03/21 1636 1302 1302 Chemistry Lactic Acid (0.4 - 2.0 mmol/L) 2.90 *H 3.10 *H Ammonia (11 - 32 umol/L) 67 H Results: labs reviewed, vital signs reviewed Discharge Instructions PCP PCP follow-up: PCP: No Primary or Family Physician Discharge to: Home/Self Care Additional Discharge Routines: PCP Follow-Up, Co nsultant Follow-Up Diet: Resume Home Diet/Feeds Discharge management: greater than 30 mins Time spent: >50% spent on counseling/coordination of care: yes Follow-up Appointments PCP follow-up: PCP: No Primary or Family Physician PCP follow up timeframe: In 1-2 weeks Special instructions: please follow up as outpatient Consulting provider 1: Provider 1: Saurav Munoz MD Specialty: Gastroenterology Special instructions: please follow up as outpatient Treatments Procedures Lab: Chemistry last 24 hrs: 03/22 256 Chemistry Sodium (136 - 145 mmol/L) 145 Potassium (3.5 - 5.1 mmol/L) 3.5 Chloride (98 - 113 mmol/L) 115 H BUN (7 - 18 mg/dL) 12 Creatinine (0.6 - 1.0 mg/dL) 0.6 Glucose (65 - 99 mg/dL) 119 H AST (15 - 37 U/L) 88 H ALT (10 - 30 U/L) 63 H Hematology last 24 hrs: 03/22 256 Hematology WBC (4.8 - 10.8 K/mm3) 7.5 Hgb (13.5 - 17.5 gm/DL) 13.8 Hct (37.1 - 51.5 %) 41.8 Plt Count (130 - 400 X10(3)) 164 Imaging: Recent Impressions: CAT SCAN - CTA HEAD 03/21 223 Report Impression - Status: SIGNED Entered: 03/21/2022244 IMPRESSION: 1. No hemodynamically significant stenoses of th e extracranial carotid or vertebral arteries. 2. No intracranial large vessel occlusion or ane urysm. Impression By: Ashleigh Jones MD CAT SCAN - CTA NECK 03/21 223 Report Impression - Status: SIGNED Entered: 03/21/2022244 IMPRESSION: 1. No hemodynamically significant stenoses of th e extracranial carotid or vertebral arteries. 2. No intracranial large vessel occlusion or ane urysm. Impression By: Ashleigh Jones MD CAT SCAN - CT HEAD/BRAIN W/O CONT 03/21 223 Report Impression - Status: SIGNED Entered: 03/21/2022 0224 IMPRESSION: No evidence of acute intracranial abnormality or hemorrhage. Impression By: [email or web address] - Saranya ALLEN RADIOLOGY - XR CHEST 1 V 03/21 0403 Report Impression - Status: SIGNED Entered: 03/21/2022 0838 IMPRESSION: 1. Right basilar lucency is felt to represent ai r under atelectasis rather than pneumoperitoneum. Recommend repeat s emiupright chest radiograph. 2. Prominent central pulmonary vasculature. Impression By: [email or web address] - LUIS LANDAVERDE M.D. Quality: Discharge Advanced Care Plan 65 or Older Discussed with: patient Current Medications Current medication review: I attest that the foregoing medication list in [facility] medical record is true, accurate, and complete to the best of my knowled ge. Attestations Attestation needed: supervising physician (Dr. Staci villanueva) Physician Attestation Agree w/findings plan: Agree with the findings and plan as documented b y [Kelly MAYS]; * my personal evaluation is Dwayne Babb 03/22/22 1421: Med Rec Med Rec Discharge meds: Start taking the following new medications: LACTULOSE (LACTULOSE 10 GM/15 ML) 10 GRAM/15 ML SYRUP 15 MILLILITERS ORAL TWICE DAILY. Days = 30 Qty = 900 No Refills Electronically Signed by Kelly Swan NP on at 0954 at 1421 RPT #:[id number] END OF REPORT 2022-03-21 10:58:00-00:00 [facility] ([facility]) Hospitalist Progress Note REPORT#:[id number] REPORT STATUS: Signed DATE:03/21/22 TIME: 1058 PATIENT: JOSEF VEGA UNIT #: [id number] [facility] AGE: 71 SEX: M ATTEND: Den Mello MD ADM AUTHOR: Kelly Swan PRINCIPAL SOFTWARE ARCHITECT * ALL edits or amendments must be made on the el [employer]ronic/computer document * Kelly Swan 03/21/22 1058: Subjective Chief complaint: Confusion Free Text Subj Notes Free Text Subj Notes: Patient was assessed and chart was reviewed. Pat ient is being held in the ER until bed is available on the floor. Patient con tinues with confusion and continues to try to get out of bed. Sitter one-t o-one was ordered due to high risk for fall. Patient will continue to monitor closely Review of Systems Unable to obtain due to: confused Objective General VS/I O: Vital Signs: Date Time Temp Pulse Resp B/P B/P Pulse O2 O2 F low FiO2 Mean Ox Delivery Rate 03/21 0910 107 18 107/53 71 96 03/21 0853 111 18 155/81 105 98 03/21 0751 111 18 163/126 138 97 03/21 0509 97 18 161/78 105 98 Room air 03/21 0013 36.7 84 21 121/58 79 97 Room air 24 hour I O ending at 0700: 03/21 0700 03/20 1900 Intake Total Output Total Balance Patient 109.091 kg Weight Weight Stated/Reported Measurement Method PATIENT WEIGHT: Weight (lb): Weight (oz): Weight (kg): 109.091 Medications: Active Meds + DC'd Last 24 Hrs Famotidine (PEPCID) 20 MG BID PO Rifaximin (Xifaxan 550 MG TAB) 550 MG BID PO Lactulose (LACTULOSE 20 GM/30 ML) 30 ML Q6HR PO Dextrose/Water (DEXTROSE 5% WATER) 1,000 ML .Q10 H IV Magnesium Sulfate (MAGNESIUM SULFATE 2GM/50ML) 5 0 ML ASDIR PRN IV Potassium Chloride (K-DUR) 20 MEQ ASDIR PRN PO Potassium Chloride (POTASSIUM CHLORIDE 20 MEQ/15 ML ORAL SOLN) 20 MEQ ASDIR PO (CKD) Potassium Chloride (KCL 10 MEQ/100ML) 100 ML ASD IR PRN IV Potassium Chloride (KCL 20 MEQ/100 ML) 100 ML DIR PRN IV Hydralazine HCl (hydrALAZINE) 5 MG Q4H PRN PRN I V Lactulose (LACTULOSE 20 GM/30 ML) 300 ML ONCE ON E RECTAL (DC) Ondansetron HCl (ZOFRAN) 4 MG Q6H PRN PRN IV Hydralazine HCl (hydrALAZINE) 10 MG Q2H PRN PRN IV Ondansetron HCl (ZOFRAN) 4 MG Q6H PRN PRN IV (DC ) Sodium Chloride (NORMAL SALINE) 1,000 ML ONCE ON E IV Iopamidol (Isovue-370 76% 100ml SDV) 0 .STK-MED ONE IV (DC) Iopamidol (Isovue-370 76% 100ml SDV) 0 .STK-MED ONE IV (DC) Lactulose (LACTULOSE 20 GM/30 ML) 60 ML X1ED STA PO (DC) Nutrition assessment: The data set between the solid lines has been im ported from the dietitian's assessment. Any exceptions have been noted under Provider comments. BMI Calculated: 32.6 Nutrition related diagnosis: Nutrition diagnosis details: Nutrition problem: Nutrition etiology: Nutrition signs and symptoms: Nutrition prescription: Dietitian name: Assessment completed: Provider comments on imported dietitian assessme nt: Physical Exam General appearance: altered mental statu s, chronically ill appearing, confused Head/Eyes: atraumatic, EOMI ENT: moist mucosal membranes, normal dentition Neck: full range of motion, non-tender Cardiovascular: normal capillary refill, normal heart sounds Respiratory: aerating well, clear to auscultatio n Abdomen: obese, non-tender, soft Genitourinary: no flank pain, no urinary cathete r Extremities: no clubbing, no cyanosis Musculoskeletal: normal inspection, painless ran ge of motion 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 mental status, disoriented, a lert Considered stroke alert: no Skin: dry, intact, normal color Lymphatics: neck normal, no lymphadenopathy Psychiatry: unable to evaluate Results Findings/Data: Laboratory Tests 03/21 03/21 03/21 03/21 03/21 0856 0534 0532 0532 0030 Chemistry Lactic Acid (0.4 - 2.0 mmol/L) 3.70 *H 2.80 *H 2.30 *H Ammonia (11 - 32 umol/L) 170 H NT-Pro-B Natriuret Pep (0 - 125 29 pg/mL) Triglycerides (30 - 200 mg/dL) 56 Cholesterol (120 - 200 mg/dL) 116 L LDL Cholesterol Measurd (0 - 130 56 mg/dl) VLDL Cholesterol (6 - 40 mg/dL) 11.2 HDL Cholesterol (35 - 60 mg/dL) 55 Cholesterol/HDL Ratio (4.4 - 5.0) 2.1 L 03/21 03/21 0030 0030 Chemistry Sodium (136 - 145 mmol/L) 146 H Potassium (3.5 - 5.1 mmol/L) 3.4 L Chloride (98 - 113 mmol/L) 112 Carbon Dioxide (21 - 32 mmol/L) 25 BUN (7 - 18 mg/dL) 16 Creatinine (0.6 - 1.0 mg/dL) 0.7 Glomerular Filtr Rate 119 Glucose (65 - 99 mg/dL) 126 H Calcium (7.8 - 10.9 mg/dL) 9.2 Total Bilirubin (0.0 - 1.1 mg/dL) 1.0 AST (15 - 37 U/L) 53 H ALT (10 - 30 U/L) 62 H Total Alk Phosphatase (45 - 117 U/L) 125 H Ammonia (11 - 32 umol/L) 314 H Troponin I (3.0 - 78.5 pg/mL) 9.4 NT-Pro-B Natriuret Pep (0 - 125 pg/mL) 28 Total Protein (6.4 - 8.2 g/dL) 6.8 Albumin (3.4 - 5.0 g/dL) 3.1 L Globulin (2.3 - 3.5 gm/dL) 3.7 H Albumin/Globulin Ratio (1.5 - 2.2) 0.8 L Lipase (73 - 393 U/L) 146 Laboratory Tests 03/21 0105 Coagulation INR (0.93 - 1.2) 1.09 PTT ([place]) (23.0 - 32.0 SECONDS) 26.1 PT Patient/Control Mix (9.1 - 12.0 SECONDS) 11. 6 Laboratory Tests 03/21 0030 Hematology WBC (4.8 - 10.8 K/mm3) 5.5 RBC (4.2 - 5.4 M/mm3) 4.37 Hgb (13.5 - 17.5 gm/DL) 14.6 Hct (37.1 - 51.5 %) 43.3 MCV (81 - 99 fL) 99.1 H MCH (27 - 31 pg) 33.4 H MCHC (33 - 37 gm/dL) 33.7 RDW (11.5 - 14.5 %) 13.1 Plt Count (130 - 400 X10(3)) 187 MPV (9.4 - 12.4 fL) 10.7 Neut % (Auto) (51.5 - 79.7 %) 43.0 L Lymph % (Auto) (14 - 40 %) 44.1 H [place] % (Auto) (4.0 - 10.2 %) 9.8 Eos % (Auto) (0 - 4.1 %) 2.0 Baso % (Auto) (0.1 - 0.7 %) 0.7 Neut # (Auto) (2.5 - 8.6 K/mm3) 2.4 L Lymph # (Auto) (1.1 - 3.6 K/mm3) 2.4 [place] # (Auto) (0.3 - 0.9 K/mm3) 0.5 Eos # (Auto) (0.0 - 0.4 #) 0.11 Baso # (Auto) (0.0 - 0.2 K/mm3) 0.04 Nucleated RBC % (0 - 0 %) 0.0 Nucleated RBCs # (Man) (0.00 - 0.20 K/mm3) 0.00 Laboratory Tests 03/21 010 Serology SARS-CoV-2 Ag (Rapid) (Presump.Neg) Presumptive Negative Laboratory Tests 03/21 45 Urines Urine Color (YELLOW) Yellow Urine Appearance (CLEAR) Clear Urine pH (5.0 - 9.0) 7.5 Ur Specific [place] (1.000 - 1.032) 1.017 Urine Protein (NEGATIVE) Negative Urine Glucose (UA) (NORMAL) Normal Urine Ketones (NEGATIVE) 10 Urine Blood (NEGATIVE) Negative Urine Nitrite (NEGATIVE) Negative Urine Bilirubin (NEGATIVE) Negative Urine Urobilinogen (NORMAL) Normal Ur Leukocyte Esterase (NEGATIVE) Negative Urine RBC (0 - 5) 0-2 Urine WBC (0 - 5) 0-2 Urine Mucus (NONE - FEW) OCC Urine Culture Screen Criteria not met Radiology data: Recent Impressions: CAT SCAN - CTA HEAD 03/21 223 Report Impression - Status: SIGNED Entered: 03/21/2022244 IMPRESSION: 1. No hemodynamically significant stenoses of th e extracranial carotid or vertebral arteries. 2. No intracranial large vessel occlusion or ane urysm. Impression By: Ashleigh Jones MD CAT SCAN - CTA NECK 03/21 223 Report Impression - Status: SIGNED Entered: 03/21/2022244 IMPRESSION: 1. No hemodynamically significant stenoses of th e extracranial carotid or vertebral arteries. 2. No intracranial large vessel occlusion or ane urysm. Impression By: Ashleigh Jones MD CAT SCAN - CT HEAD/BRAIN W/O CONT 03/21 223 Report Impression - Status: SIGNED Entered: 03/21/2022223 IMPRESSION: No evidence of acute intracranial abnormality or hemorrhage. Impression By: [email or web address] - Saranya ALLEN RADIOLOGY - XR CHEST 1 V 03/21 0403 Report Impression - Status: SIGNED Entered: 03/21/2022 08 IMPRESSION: 1. Right basilar lucency is felt to represent ai r under atelectasis rather than pneumoperitoneum. Recommend repeat s emiupright chest radiograph. 2. Prominent central pulmonary vasculature. Impression By: [email or web address] - LIUS LANDAVERDE M.D. Results: labs reviewed, vital signs reviewed Diagnosis, Assessment Plan Problem List/A P: 1. Hepatic encephalopathy Lactulose enema 300 mL Then lactulose 30 mL every 6 hours p.o. when th e patient is fully awake Rifaximin 550 mg p.o. twice a day Fall precaution Aspiration precaution PT OT evaluation and treatment. 2. Hypokalemia Replace potassium per protocol Recheck potassium level post replacement. 3. Elevated lactic acid level 2 L NS given in the emergency department. Recheck lactic acid level in 6 hours Blood cultures Chest x-ray. 4. Transaminitis Ultrasound limited of the abdomen 5. Hypernatremia D5 water at 100 mL/h Recheck sodium level in a.m. Free Text DxA P Notes Free text DxA P notes: SCDs for DVT prophylaxis, famotidine for GI prop hylaxis. Time spent 35-minute Full code Disposition pending above Quality: Gen Med Crit Care VTE Prophylaxis VTE prophylaxis initiated: yes Current Medications Current medication review: I attest that the foregoing medication list in t he medical record is true, accurate, and complete to the best of my knowled ge. Attestations Attestation needed: supervising physician (Dr. Staci villanueva) Physician Attestation Agree w/findings plan: Agree with the findings and plan as documented b y [Kelly Swan CONVEYOR BELT INSTALLER]; * my personal evaluation is [ ] Electronically Signed by Kelly Swan NP on at 1100 at 1322 RPT #:[id number] END OF REPORT 2022-03-21 03:17:00-00:00 [facility] ([facility]) Hospitalist History Physical REPORT#:[id number] REPORT STATUS: Signed DATE:03/21/22 TIME: 316 PATIENT: JOSEF VEGA UNIT #: [id number] ROOM/BED: [place] [address] : 52 AGE: 71 SEX: M ATTEND: Den Mello MD ADM AUTHOR: Zach West PRINCIPAL SOFTWARE ARCHITECT * ALL edits or amendments must be made on the [employer]/computer document * History of Present Illness HPI Chief complaint: Confusion PCP: PCP: No Primary or Family Physician HPI: This is a 71-year-old male with no known past me dical history or surgical history, brought in via family member for evalua tion of alteration of mental status. Per ER staffing report, the family [address] reported a history of liver cirrhosis with elevated ammonia. The ER provider reports that the patient was in the hotel room wondering in the holdi ng onto the [place] and the decided to take him to the emergency department for evaluation and treatment. The work- up in the emergency department shows a sodium of 146, potassium of 3.4, and a lactic acid of 2.3, AST of 53, ALT of 62, ammoni a of 314. In the emergency department, patient received hydralazine 10 mg IV, NS 1 L bolus lactulose 60 mL p.o. Informant/historian: patient History Past Medical Surgical Hx Patient History: 1. Hepatic encephalopathy 2. Serum ammonia increased Family History Family history: Reports: Hypertension. Social History Alcohol use: Denies EtOH use Drug use: Denies recreational drugs Smoking status: Smoking status for patients 13 years old or old er: Never Smoker Other social history: Local resident, [place] support Medication/Allergy-Vaccine Hx Medications: Home Medications: Unable to Obtain Home Medication History Allergies: Coded Allergies: No Known Allergies (03/21/22) Unobtainable due to: altered mental status Review of Systems Neuro: Reports: confusion. All systems rev neg: except as noted Physical Exam VS/I O: Vital Signs Date Temp Pulse Resp B/P B/P Mean Pulse Ox FiO2 03/21 36.7 84 21 121/58 79 97 Last Documented: Result Date Time Pulse Ox 97 03/21 0013 B/P 121/58 03/21 0013 B/P Mean 79 03/21 0013 O2 Delivery Room air 03/21 0013 Temp 36.7 03/21 0013 Pulse 84 03/21 0013 Resp 21 03/21 0013 24 hour I O ending at 0700: 03/21 0700 03/20 1900 Intake Total Output Total Balance Patient 109.091 kg Weight Weight Stated/Reported Measurement Method Patient Weight and BMI Weight (kg): 109.091 BMI: 32.6 General appearance: confused, alert Head/Eyes: atraumatic, EOMI ENT: moist mucosal membranes, normal dentition Neck: full range of motion, non-tender Breast: no mass, no tenderness Cardiovascular: normal capillary refill, normal heart sounds Respiratory: aerating well, clear to auscultatio n Abdomen: obese, non-tender, soft Abdomen quadrants: LLQ normal bowel sounds, LUQ normal henrietta l sounds, RLQ normal bowel sounds, RUQ normal bowel sounds Genitourinary: no flank pain, no urinary cathete r Extremities: no clubbing, no cyanosis Vascular pulse assessment: palpated: R popliteal, L popliteal. Musculoskeletal: normal inspection, painless ran ge of motion 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 mental status, disoriented, a lert Considered stroke alert: no Luke Coma Score: Copyright Sir Ismael Irizarry Copyright Sir Greg Irizarry Eye opening: (3) To sound Verbal response: (4) Confused Best motor response: (5) Localizing to pain GCS Score: 12 Skin: dry, intact, normal color Lymphatics: neck normal, no lymphadenopathy Psychiatry: unable to evaluate Results Findings/Data: Laboratory Tests: 03/21 010 Coagulation INR (0.93 - 1.2) 1.09 PTT ([place]) (23.0 - 32.0 SECONDS) 26.1 PT Patient/Control Mix (9.1 - 12.0 SECONDS) 11. 6 Serology SARS-CoV-2 Ag (Rapid) (Presump.Neg) Presumptive Negative 03/215 0 0030 Chemistry Lactic Acid (0.4 - 2.0 mmol/L) 2.30 *H Ammonia (11 - 32 umol/L) 314 H Urines Urine Color (YELLOW) Yellow Urine Appearance (CLEAR) Clear Urine pH (5.0 - 9.0) 7.5 Ur Specific [place] (1.000 - 1.032) 1.017 Urine Protein (NEGATIVE) Negative Urine Glucose (UA) (NORMAL) Normal Urine Ketones (NEGATIVE) 10 Urine Blood (NEGATIVE) Negative Urine Nitrite (NEGATIVE) Negative Urine Bilirubin (NEGATIVE) Negative Urine Urobilinogen (NORMAL) Normal Ur Leukocyte Esterase (NEGATIVE) Negative Urine RBC (0 - 5) 0-2 Urine WBC (0 - 5) 0-2 Urine Mucus (NONE - FEW) OCC Urine Culture Screen Criteria not met 03/21 30 Chemistry Sodium (136 - 145 mmol/L) 146 H Potassium (3.5 - 5.1 mmol/L) 3.4 L Chloride (98 - 113 mmol/L) 112 Carbon Dioxide (21 - 32 mmol/L) 25 BUN (7 - 18 mg/dL) 16 Creatinine (0.6 - 1.0 mg/dL) 0.7 Glomerular Filtr Rate 119 Glucose (65 - 99 mg/dL) 126 H Calcium (7.8 - 10.9 mg/dL) 9.2 Total Bilirubin (0.0 - 1.1 mg/dL) 1.0 AST (15 - 37 U/L) 53 H ALT (10 - 30 U/L) 62 H Total Alk Phosphatase (45 - 117 U/L) 125 H Troponin I (3.0 - 78.5 pg/mL) 9.4 NT-Pro-B Natriuret Pep (0 - 125 pg/mL) 28 Total Protein (6.4 - 8.2 g/dL) 6.8 Albumin (3.4 - 5.0 g/dL) 3.1 L Globulin (2.3 - 3.5 gm/dL) 3.7 H Albumin/Globulin Ratio (1.5 - 2.2) 0.8 L Lipase (73 - 393 U/L) 146 Hematology WBC (4.8 - 10.8 K/mm3) 5.5 RBC (4.2 - 5.4 M/mm3) 4.37 Hgb (13.5 - 17.5 gm/DL) 14.6 Hct (37.1 - 51.5 %) 43.3 MCV (81 - 99 fL) 99.1 H MCH (27 - 31 pg) 33.4 H MCHC (33 - 37 gm/dL) 33.7 RDW (11.5 - 14.5 %) 13.1 Plt Count (130 - 400 X10(3)) 187 MPV (9.4 - 12.4 fL) 10.7 Neut % (Auto) (51.5 - 79.7 %) 43.0 L Lymph % (Auto) (14 - 40 %) 44.1 H [place] % (Auto) (4.0 - 10.2 %) 9.8 Eos % (Auto) (0 - 4.1 %) 2.0 Baso % (Auto) (0.1 - 0.7 %) 0.7 Neut # (Auto) (2.5 - 8.6 K/mm3) 2.4 L Lymph # (Auto) (1.1 - 3.6 K/mm3) 2.4 [place] # (Auto) (0.3 - 0.9 K/mm3) 0.5 Eos # (Auto) (0.0 - 0.4 #) 0.11 Baso # (Auto) (0.0 - 0.2 K/mm3) 0.04 Nucleated RBC % (0 - 0 %) 0.0 Nucleated RBCs # (Man) (0.00 - 0.20 K/mm3) 0.00 Laboratory Tests 03/21/22 0030: [Embedded Image Not Available] Radiology data: Recent Impressions: CAT SCAN - CTA HEAD 03/21 223 Report Impression - Status: SIGNED Entered: 03/21/2022244 IMPRESSION: 1. No hemodynamically significant stenoses of th e extracranial carotid or vertebral arteries. 2. No intracranial large vessel occlusion or ane urysm. Impression By: Ashleigh Jones MD CAT SCAN - CTA NECK 03/21 223 Report Impression - Status: SIGNED Entered: 03/21/2022244 IMPRESSION: 1. No hemodynamically significant stenoses of th e extracranial carotid or vertebral arteries. 2. No intracranial large vessel occlusion or ane urysm. Impression By: Ashleigh Jones MD CAT SCAN - CT HEAD/BRAIN W/O CONT 03/21 223 Report Impression - Status: SIGNED Entered: 03/21/2022223 IMPRESSION: No evidence of acute intracranial abnormality or hemorrhage. Impression By: [email or web address] - Saranya ALLEN Results: labs reviewed, vital signs reviewed, CT results reviewed Sepsis Reassessment VS: Last Documented: Result Date Time Pulse Ox 97 03/21 13 B/P 121/58 03/21 001 B/P Mean 79 03/21 001 O2 Delivery Room air 03/21 13 Temp 36.7 03/21 13 Pulse 84 03/21 001 Resp 21 03/21 13 Diagnosis, Assessment Plan Problem List/A P: 1. Hepatic encephalopathy Lactulose enema 300 mL Then lactulose 30 mL every 6 hours p.o. when th e patient is fully awake Rifaximin 550 mg p.o. twice a day Fall precaution Aspiration precaution PT OT evaluation and treatment. 2. Hypokalemia Replace potassium per protocol Recheck potassium level post replacement. 3. Elevated lactic acid level 2 L NS given in the emergency department. Recheck lactic acid level in 6 hours Blood cultures Chest x-ray. 4. Transaminitis Ultrasound limited of the abdomen 5. Hypernatremia D5 water at 100 mL/h Recheck sodium level in a.m. Free Text A P: SCDs for DVT prophylaxis, famotidine for GI prop hylaxis. Full code Disposition pending above Plan discussed with: patient Time spent: Time spent on patient care (minutes): 60 Antic. DC date: 03/21/22 Antic. DC disposition: home Resuscitation discussion: Discussed with: patient Code status: full code Quality: Gen Med Crit Care VTE Prophylaxis VTE prophylaxis initiated: yes Current Medications Current medication review: I attest that the foregoing medication list in t he medical record is true, accurate, and complete to the best of my knowled ge. Attestations Attestation needed: supervising physician Physician Attestation Agree w/findings plan: Agree with the findings and plan as documented b y [ZACH WEST NP]; * my personal evaluation is [ ] Reviewed findings plan: Reviewed the findings and plan as documented by [insert SHWETHA name]; * my personal evaluation is [ ] Estimated time for assessment and planning, 60 m inutes. Electronically Signed by Zach West NP on 02/22 at 0337 Electronically Signed by Den Mello MD on 01/13 at 1044 RPT #:[id number] END OF REPORT 2022-03-21 00:48:00-00:00 [facility] ([facility]) EMERGENCY PROVIDER REPORT REPORT#:[id number] REPORT STATUS: Signed DATE:03/21/22 TIME: 0048 PATIENT: JOSEF VEGA UNIT #: [id number] [facility]: [facility] AGE: 71 SEX: M PCP PHYS: No Primary or Family Ph ysician SERVICE AUTHOR: Ever Herrera DO * ALL edits or amendments must be made on the el [employer]/computer document * HPI-Altered Mental Status Free Text HPI Notes Free Text HPI Notes Patient 71-year-old male see n evaluated brought in via family member via POV for evaluation for alteration mental status. Initial ly evaluated at outlying facility concern for possible CVA. Patient witho ut marked disability or focal weakness. Per family member history. Patient has a history of liver issues with previous history of elevated ammoni a. Patient states the patient was in the hotel room wandering and holding onto the wall. Patient and family member denies focal disabili ty. Patient and family member visiting from [place] without current follow-up in our area. General Confirmed Patient Yes Patient Type New patient Initial Greet Date/Time 03/21/22 0013 PCP OOT Presentation Chief Complaint Agitated, Confused, Decreased al ertness Onset Occurred Today Risk-Altered Mental Status NIH Stroke Scale NIH Stroke Scale Response Value NIHSS Applicable? No 0 Blink Eyes/Squeeze Hands Performs both tasks (0 ) 0 Total 0 Ashley Coma Score: Copyright Ismael Irizarry Copyright Sir Greg [place] Eye opening: (4) Spontaneous Verbal response: (4) Confused Best motor response: (6) Obeys commands Intracranial Bleed Risk factors reviewed, Age (< 1 yr or >60 yrs) Subarachnoid Hemorrhage Risk factors reviewed, H ypertension Review of Systems ROS Statements All systems rev neg except as marked. Complete sys rev neg except as marked. Basic Review of Systems Basic ROS ENT: No sore throat, MS: No ext swelli ng/pain, HEM: No bleeding/ bruising Focused Review of Systems Constitutional Reports: Fatigue. Denies: Chills, Fever, Letharg y, Malaise, Recent wt loss, Weakness - generalized. Respiratory Denies: Cough, non-productive, Cough, productive , Dyspnea on exertion, Hemoptysis, Parox nocturnal dyspnea, Pleuritic p ain, Shortness of breath, Wheezing. Cardiovascular Denies: Chest pain, Dyspnea on exertion, Edema, Orthopnea, Palpitations, Parox nocturnal dyspnea, Syncope. GI Denies: Abdominal pain, Anorexia, Belching, Bloo dy/tarry stool, Constipation, Diarrhea, Dysphagia, Hematemesis, Hemato chezia, Mucousy stool, Melena, Nausea, Rectal pain, Vomiting. Male Denies: Dysuria, Flank pain, Hematuria, Incontinence, Nocturia, Penile discharge , Penile lesion, Scrotal swe lling, Testicular pain, Testicular swelling, Urinary frequency, Urinary urgency, Urination decreased, Urination increased. Neurologic Reports: Confusion, Generalized weakness. Denies : Abnormal movement, Bladder dysfunction, Bowel dysfuncti on, Change LOC, Dizziness, Focal weakness, Headache, Lightheaded, Numbness, Problem walking, Seizure, Shaking, Slurred speech, Spinning sensation, Syncope, Tingling, Unable to speak, Vision change. Past Medical History - Adult Stated Complaint DISORIENTED Allergies Coded Allergies: No Known Allergies (03/21/22) Home Medications Reported Medications Unable to Obtain Home Medication History Smoking status: Smoking status for patients 13 years old or old er: Never Smoker Physical Exam Vital Signs Vital Signs First Documented: Result Date Time Pulse Ox 97 03/21 13 B/P 121/58 03/21 0013 B/P Mean 79 03/21 0013 O2 Delivery Room air 03/21 13 Temp 36.7 03/21 001 Pulse 84 03/21 001 Resp 03/21 Last Documented: Result Date Time Pulse Ox 97 03/21 001 B/P 121/58 03/21 0013 B/P Mean 79 03/21 0013 O2 Delivery Room air 03/21 13 Temp 36.7 03/21 13 Pulse 84 03/21 13 Resp 03/21 Review of Vital Signs Reviewed, Vital signs norm al Basic Physical Exam Basic PE HEAD: atraumatic/NC , EYES: PERRL/conj clear, ENT: Membranes moist, ABD: Soft/non-tender, EXT: No christopher ss abnormality, SKIN: No rashes, warm/dry, PSYCH: NL thought content Focused PE General/Const General/Const Awake, Alert, Well appearing, Wel l developed, Well hydrated, Well nourished Distress/Hydration Distress mild. MS Neck Neck Atraumatic, Supple, No meningismus , Full range of motion, No adenopathy, No swelling, Non-tender, No midline vert ebral tend, No masses, No crepitus, No JVD, No carotid bruit, Thyroid NL, No tracheal d eviation Resp/Chest Respiratory/Chest Atraumatic, Breath sounds NL, Breath sounds = bilat, No respiratory distress, No rales, No rhonchi Cardiovascular Cardiovascular Heart rate NL, Regular rhythm, H eart sounds NL, No gallop, No murmurs, No rubs, Cap refill not delayed Neurologic Neurologic Speech NL, No motor deficits Mental Status Confused, Disoriented to place, Disoriented to time. Interpretation Diagnostics Lab Results Interpretation Results Laboratory Tests 03/21/22 0030: [Embedded Image Not Available] Laboratory Tests: 03/21 0105 Coagulation INR (0.93 - 1.2) 1.09 PTT ([place]) (23.0 - 32.0 SECONDS) 26.1 PT Patient/Control Mix (9.1 - 12.0 SECONDS) 11 .6 Serology SARS-CoV-2 Ag (Rapid) ([place].Neg) Presumptive Negative 03/21 03/21 03/21 0045 0030 0030 Chemistry Lactic Acid (0.4 - 2.0 mmol/L) 2.30 *H Ammonia (11 - 32 umol/L) 314 H Urines Urine Color (YELLOW) Yellow Urine Appearance (CLEAR) Clear Urine pH (5.0 - 9.0) 7.5 Ur Specific [place] (1.000 - 1.032) 1.017 Urine Protein (NEGATIVE) Negative Urine Glucose (UA) (NORMAL) Normal Urine Ketones (NEGATIVE) 10 Urine Blood (NEGATIVE) Negative Urine Nitrite (NEGATIVE) Negative Urine Bilirubin (NEGATIVE) Negative Urine Urobilinogen (NORMAL) Normal Ur Leukocyte Esterase (NEGATIVE) Negative Urine RBC (0 - 5) 0-2 Urine WBC (0 - 5) 0-2 Urine Mucus (NONE - FEW) OCC Urine Culture Screen Criteria not met 03/21 30 Chemistry Sodium (136 - 145 mmol/L) 146 H Potassium (3.5 - 5.1 mmol/L) 3.4 L Chloride (98 - 113 mmol/L) 112 Carbon Dioxide (21 - 32 mmol/L) 25 BUN (7 - 18 mg/dL) 16 Creatinine (0.6 - 1.0 mg/dL) 0.7 Glomerular Filtr Rate 119 Glucose (65 - 99 mg/dL) 126 H Calcium (7.8 - 10.9 mg/dL) 9.2 Total Bilirubin (0.0 - 1.1 mg/dL) 1.0 AST (15 - 37 U/L) 53 H ALT (10 - 30 U/L) 62 H Total Alk Phosphatase (45 - 117 U/L) 125 H Troponin I (3.0 - 78.5 pg/mL) 9.4 NT-Pro-B Natriuret Pep (0 - 125 pg/mL) 28 Total Protein (6.4 - 8.2 g/dL) 6.8 Albumin (3.4 - 5.0 g/dL) 3.1 L Globulin (2.3 - 3.5 gm/dL) 3.7 H Albumin/Globulin Ratio (1.5 - 2.2) 0.8 L Lipase (73 - 393 U/L) 146 Hematology WBC (4.8 - 10.8 K/mm3) 5.5 RBC (4.2 - 5.4 M/mm3) 4.37 Hgb (13.5 - 17.5 gm/DL) 14.6 Hct (37.1 - 51.5 %) 43.3 MCV (81 - 99 fL) 99.1 H MCH (27 - 31 pg) 33.4 H MCHC (33 - 37 gm/dL) 33.7 RDW (11.5 - 14.5 %) 13.1 Plt Count (130 - 400 X10(3)) 187 MPV (9.4 - 12.4 fL) 10.7 Neut % (Auto) (51.5 - 79.7 %) 43.0 L Lymph % (Auto) (14 - 40 %) 44.1 H [place] % (Auto) (4.0 - 10.2 %) 9.8 Eos % (Auto) (0 - 4.1 %) 2.0 Baso % (Auto) (0.1 - 0.7 %) 0.7 Neut # (Auto) (2.5 - 8.6 K/mm3) 2.4 L Lymph # (Auto) (1.1 - 3.6 K/mm3) 2.4 [place] # (Auto) (0.3 - 0.9 K/mm3) 0.5 Eos # (Auto) (0.0 - 0.4 #) 0.11 Baso # (Auto) (0.0 - 0.2 K/mm3) 0.04 Nucleated RBC % (0 - 0 %) 0.0 Nucleated RBCs # (Man) (0.00 - 0.20 K/mm3) 0.00 Recent Impressions: CAT SCAN - CTA HEAD 03/21 223 Report Impression - Status: SIGNED Entered: 03/21/2022244 IMPRESSION: 1. No hemodynamically significant stenoses of th e extracranial carotid or vertebral arteries. 2. No intracranial large vessel occlusion or ane urysm. Impression By: Ashleigh Jones MD CAT SCAN - CTA NECK 03/21 223 Report Impression - Status: SIGNED Entered: 03/21/2022244 IMPRESSION: 1. No hemodynamically significant stenoses of th e extracranial carotid or vertebral arteries. 2. No intracranial large vessel occlusion or ane urysm. Impression By: Ashleigh Jones MD CAT SCAN - CT HEAD/BRAIN W/O CONT 03/21 223 Report Impression - Status: SIGNED Entered: 03/21/2022 0224 IMPRESSION: No evidence of acute intracranial abnormality or hemorrhage. Impression By: [email or web address] - Saranya ALLEN ECG #1 Interpretation Text/Dict Note 89 bpm normal sinus rhythm left axis deviation i ncomplete right bundle branch block nonspecific T wave abnormality Date 03/21/22 Time 0015 Interpreted by ED physician NL ECG Interpretation Normal rate, Normal sinus rhythm, No acute ischemic changes, No STEMI, Normal ST waves, Normal T wav es, Normal axis, Normal intervals, Adequate tracing Rate 89 ECG Q-T-ST - CA Non-specific ST changes Conduction/[place] RBBB - incomplete Re-Evaluation MDM Free Text MDM Notes Free Text MDM Notes Patient 71-year-old male seen evaluated with maranda mackay medical history significant for hepatic encephalopathy. Per history by . Patient has not been taking his lactulose as prescribed. Patient was found altered today in the hotel room. No other focal deficit. CT head and CTA head an d neck without acute finding. Patient is noted to have elevated ammonia of 312 . Patient is otherwise clinically stable. Plan admission for further ca re and evaluation for hepatic encephalopathy. )( Re-Evaluation/Progress #1 )( Re-Eval Status Improved ED Course Medication(s) Ordered Medication(s) Ordered: Cardiovascular Drugs Sig/Evangelista Start time Last Medication Dose Route Stop Time Status Admin Hydralazine HCl 10 MG Q2H PRN PRN 03/21 0300 AC IV 03/22 0155 Diagnostic Agents Sig/Evangelista Start time Last Medication Dose Route Stop Time Status Admin Iopamidol 0 .STK-MED ONE 03/21 0200 DC 03/21 IV 0232 Iopamidol 0 .STK-MED ONE 03/21 0052 DC 03/21 IV 0144 Electrolytic, Caloric, And Joseph Sig/Evangelista Start time Last Medication Dose Route Stop Time Status Admin Sodium Chloride 1,000 ML ONCE ONE 03/21 0300 AC IV 03/21 1259 Lactulose 60 ML X1ED STA 03/21 0039 DC 03/21 PO 03/21 0040 0055 Gastrointestinal Drugs Sig/Evangelista Start time Last Medication Dose Route Stop Time Status Admin Ondansetron HCl 4 MG Q6H PRN PRN 03/21 0300 DC IV 03/22 0155 Patient Discharge Departure Vital Signs/Condition Vital Signs First Documented: Result Date Time Pulse Ox 97 03/21 13 B/P 121/58 03/21 0013 B/P Mean 79 03/21 0013 O2 Delivery Room air 03/21 13 Temp 36.7 03/21 13 Pulse 84 03/21 13 Resp 21 03/21 13 Last Documented: Result Date Time Pulse Ox 97 03/21 13 B/P 121/58 03/21 001 B/P Mean 79 03/21 0013 O2 Delivery Room air 03/21 13 Temp 36.7 03/21 001 Pulse 84 03/21 001 Resp 21 03/21 13 All vital signs available at the time of this en try have been reviewed. Clinical Impression Clinical Impression Primary Impression: Hepatic encephalopathy Secondary Impressions: Serum ammonia increased Disposition Decision Admit Admit Physician Name Zach West NP Admit Physician Hospitalist Request Time 025 Request Date 03/21/22 )( Admission Accepts Yes )( Accepted Time 252 )( Accepted Date 03/21/22 Call Information will see patient, agrees with eval, agrees with plan Discharge/Care Plan (Auto) Prescriptions Current Visit Scripts Unable to Obtain Home Medication History at 0452 RPT #:[id number] END OF REPORT 2022-03-21 00:15:00-00:00 [id number] [facility] [address] [place], [place], [address] PATIENT NAME: OLMAN VEGA ADMIT DATE: 2 ACCOUNT NO: [id number] ROOM NO: [facility] AGE: 71 REPORT TYPE: ELECTROCARDIOGRAM SEX: M ADMITTING PHYSICIAN:Den Mello MD ATTENDING PHYSICIAN:Den Mello MD Order: [id number] Test Reason : DISORIENTED Test Date/Time Stamp: WedMar 21 2022 00:15:39 Blood Pressure : / mmHG Vent. Rate : 089 BPM Atrial Rate : 089 BPM P-R Int : 152 ms QRS Dur : 096 ms QT Int : 384 ms P-R-T Axes : 034 -34 037 degree s QTc Int : 467 ms Normal sinus rhythm Left axis deviation Incomplete right bundle branch block Nonspecific ST and T wave abnormality Abnormal ECG No previous ECGs available Confirmed by IVET RIOS MD ([id number]) on 04/09/2022 12:42:06 PM Referred By: Self Referred Confirmed by:IVET LINTON MD Electronically Signed by Ivet Rios MD on at 1242 PATIENT NAME: OLMAN VEGA [id number]
[2023-04-19 17:52] LABS: Absolute Lymphocytes (CBC) 1.6 K/uL (0.7-4.9); Hematocrit 33.9 % (39.6-49.0); Lymphocytes % 20.1 % (15.3-44.8); MCV 99.1 fL (80-100); MPV 7.4 fL (7.6-11.3); RBC Red Blood Cell Count 3.42 M/uL (4.33-5.43)
[2023-04-19 18:07] LABS: Albumin 2.3 g/dL (3.4-5.0); Magnesium 1.9 mg/dL (1.6-2.4); Potassium 4.1 mEq/L (3.5-5.1); Protein, Total 6.4 g/dL (6.4-8.2); Troponin High Sensitivity 17.4 pg/mL (<58.9)
[2023-04-19 18:24] LABS: Protime INR 1.27
--- NOTE | 2023-04-19 18:55 | EDPHYS ---
Physician Documentation [facility] Name: Boby Lafleur Age: 72 yrs Sex: Male : 1950 Arrival Date: 04/19/2023 Time: 16:35 Bed 6 Private MD: ED Physician Андрей Oshea HPI: 04/19 18:49 This 72 yrs old Male presents to ER via EMS with complaints of confusion. jr8 18:49 The patient presents with confusion. Onset: The symptoms/episode began/occurred jr8 acutely. Possible causes: hepatic encephalopathy. Associated signs and symptoms: The patient has no apparent associated signs or symptoms. Current symptoms: In the emergency department the patient's symptoms have improved, moderately. Patient's baseline: Neuro: alert and fully oriented, Motor: no deficits, Ambulation: walks without assistance, Speech: normal. The patient has experienced similar episodes in the past, several times. The patient has not recently seen a physician. Patient with known hepatic encephalopathy. [place] stated that he had forgotten to take his lactulose dosing today. EMS was called at that time brought to the emergency room for further evaluation. Patient upon arrival was alert to person place time and event. Stated that he was feeling more sluggish and was having "brain fog". Historical: - Allergies: 16:42 No Known Allergies; ph - PMHx: 16:42 Cirrhosis of liver; ph - Immunization history:: Adult Immunizations unknown. - Social history:: Smoking status: unknown. ROS: 18:49 Eyes: Negative for injury, pain, redness, and discharge, ENT: Negative for injury, jr8 pain, and discharge, Neck: Negative for injury, pain, and swelling, Cardiovascular: Negative for chest pain, palpitations, and edema, Respiratory: Negative for shortness of breath, cough, wheezing, and pleuritic chest pain, Abdomen/GI: Negative for abdominal pain, nausea, vomiting, diarrhea, and constipation, Back: Negative for injury and pain, MS/Extremity: Negative for injury and deformity, Skin: Negative for injury, rash, and discoloration. 18:49 Neuro: Positive for altered mental status. Exam: 18:49 Constitutional: This is a well developed, well nourished patient who is awake, alert, jr8 and in no acute distress. Eyes: Pupils equal round and reactive to light, extra-ocular motions intact. Lids and lashes normal. Conjunctiva and sclera are non-icteric and not injected. Cornea within normal limits. Periorbital areas with no swelling, redness, or edema. ENT: Nares patent. No nasal discharge, no septal abnormalities noted. Tympanic membranes are normal and external auditory canals are clear. Oropharynx with no redness, swelling, or masses, exudates, or evidence of obstruction, uvula midline. Mucous membranes moist. Cardiovascular: Regular rate and rhythm with a normal S1 and S2. No gallops, murmurs, or rubs. Normal PMI, no JVD. No pulse deficits. Respiratory: Lungs have equal breath sounds bilaterally, clear to auscultation and percussion. No rales, rhonchi or wheezes noted. No increased work of breathing, no retractions or nasal flaring. Back: No spinal tenderness. No costovertebral tenderness. Full range of motion. Skin: Warm, dry with normal turgor. Normal color with no rashes, no lesions, and no evidence of cellulitis. MS/ Extremity: Pulses equal, no cyanosis. Neurovascular intact. Full, normal range of motion. Neuro: Awake and alert, GCS 15, oriented to person, place, time, and situation. Cranial nerves II-XII grossly intact. Motor strength 5/5 in all extremities. Sensory grossly intact. Cerebellar exam normal. 18:49 Abdomen/GI: Inspection: obese Bowel sounds: active, Palpation: soft, in all quadrants. Vital Signs: 16:38 BP 118 / 74; Pulse 101; Resp 18; Temp 97.2; Pulse Ox 100% on R/A; ph 17:41 BP 114 / 64; Pulse 98; Resp 18; Pulse Ox 100% on R/A; ph 18:52 BP 100 / 70; Pulse 99; Resp 18; Pulse Ox 100% on R/A; ph MDM: 16:39 Patient medically screened. jr8 18:49 Differential Diagnosis: electrolyte abnormality, hypoglycemia, sepsis, volume jr8 depletion, Hepatic encephalopathy. Data reviewed: vital signs, nurses notes, lab test result(s). I considered the following discharge prescriptions or medication management in the emergency department Medications were administered in the Emergency Department. See MAR. Care significantly affected by the following chronic conditions: Liver Disease. Counseling: I had a detailed discussion with the patient and/or guardian regarding: the historical points, exam findings, and any diagnostic results supporting the discharge/admit diagnosis, lab results, the need for outpatient follow up, a family practitioner, to return to the emergency department if symptoms worsen or persist or if there are any questions or concerns that arise at home. Response to treatment: the patient's symptoms have markedly improved after treatment. ED course: Patient is remained hemodynamically stable and without acute confusion. Ammonia was elevated at 84. Lactulose administered in ED. Both patient and felt that he was safe to go home. Advised if he were to become more confused or have other symptoms to come back to the emergency room at that time. Otherwise needs to follow-up with his back closer and primary care physician. To continue his lactulose as prescribed at home. Family and patient again good with plan.. 04/19 16:40 Order name: CBC with Diff; Complete Time: 18:04/19 16:40 Order name: Magnesium; Complete Time: 18:04/19 16:40 Order name: NT PRO-BNP; Complete Time: 18:04/19 16:40 Order name: Troponin HS; Complete Time: 18:04/19 16:40 Order name: CMP; Complete Time: 18:04/19 16:40 Order name: PT-INR; Complete Time: 18:28 04/19 16:40 Order name: AMMONIA; Complete Time: 18:04/19 16:40 Order name: EKG; Complete Time: 16:41 04/19 16:40 Order name: Cardiac monitoring; Complete Time: 17:04/19 16:40 Order name: EKG - Nurse/Tech; Complete Time: 17:04/19 16:40 Order name: IV Saline Lock; Complete Time: 17:04/19 16:40 Order name: Labs collected and sent; Complete Time: 17:04/19 16:40 Order name: O2 Per Protocol; Complete Time: 17:04/19 16:40 Order name: O2 Sat Monitoring; Complete Time: 17:04/19 17:24 Order name: Labs - recollect needed: recollect all tubes; Complete Time: 17:50 bd Administered Medications: 18:33 Drug: Lactulose PO 20 grams Volume: 30 ml; Route: PO; ll1 Disposition: 04/20 07:14 Co-signature as Attending Physician, Андрей Oshea MD I reviewed the patient's care rn provided by the Advanced Practice Provider and agree with the diagnosis and treatment plan. Disposition Summary: 04/19/23 18:54 Discharge Ordered Location: [facility] Problem: new jr8 Symptoms: have improved jr8 Condition: Stable jr8 Diagnosis - Confusional arousals jr8 - Hepatic encephalopathy jr8 Followup: jr8 - With: Private Physician - When: 2 - 3 days - Reason: Recheck today's complaints, Continuance of care, Re-evaluation by your physician Discharge Instructions: - Discharge Summary Sheet jr8 - Hepatic Encephalopathy jr8 Forms: - Medication Reconciliation Form jr8 - Thank You Letter jr8 - Antibiotic Education jr8 - Prescription Opioid Use jr8 Signatures: Dispatcher [employer] EDPaz Fry Roman, MD MD rn Roszak, Josh, PA PA jr8 Johanna Burton RN RN ph Lewis, Lynsay, RN RN ll1
--- NOTE | 2023-04-19 18:55 | ER ---
Nurse's Notes [facility] Name: Boby Lafleur Age: 72 yrs Sex: Male : 1950 Arrival Date: 04/19/2023 Time: 16:35 Bed 6 Private MD: Diagnosis: Confusional arousals;Hepatic encephalopathy Presentation: 04/19 16:38 Chief complaint: EMS states: Was at [place] w/ family, bystanders called 911 for ph pt "going in and out of consciousness", VSS, hx of liver problems, is supposed to take lactulose daily, missed today and yesterdays dose. VSS, BGL 108. Coronavirus screen: Vaccine status: Patient reports receiving the 2nd dose of the covid vaccine. Ebola Screen: No symptoms or risks identified at this time. Initial Sepsis Screen: Does the patient meet any 2 criteria? No. Patient's initial sepsis screen is negative. Does the patient have a suspected source of infection? No. Patient's initial sepsis screen is negative. Risk Assessment: Do you want to hurt yourself or someone else? Patient reports no desire to harm self or others. Onset of symptoms was April 19, 2023. 16:38 Method Of Arrival: EMS: [facility] 16:38 Acuity: CHERYL 3 ph Triage Assessment: 16:42 General: Appears in no apparent distress. comfortable, Behavior is calm, cooperative, ph drowsy. Pain: Denies pain. Neuro: Level of Consciousness is awake, obeys commands, lethargic, Oriented to person, place, situation. Cardiovascular: Capillary refill < 3 seconds in bilateral fingers Patient's skin is warm and dry. Edema is 3+ to left knee, left midcalf, left ankle, right knee, right midcalf and right ankle. Respiratory: Airway is patent Respiratory effort is even, unlabored. Derm: Skin is jaundiced. Musculoskeletal: Circulation, motion, and sensation intact. Range of motion: intact in all extremities. Historical: - Allergies: 16:42 No Known Allergies; ph - PMHx: 16:42 Cirrhosis of liver; ph - Immunization history:: Adult Immunizations unknown. - Social history:: Smoking status: unknown. Screenin:43 [facility] ED Fall Risk Assessment (Adult) History of falling in the last 3 months, ph including since admission Yes- single mechanical fall (1 pt) Confusion or Disorientation Yes (5 pts) Intoxicated or Sedated No (0 pts) Impaired Gait No (0 pts) Mobility Assist Device Used No (0 pt) Altered Elimination No (0 pt) Score/Fall Risk Level 3 or more points = High Risk Oriented to surroundings, Maintained a safe environment, Hourly rounding (assess needs \\T\\ fall precautionary measures) done, Used ambulatory aids as needed (educated on \\T\\ assisted with). Abuse screen: Denies threats or abuse. Denies injuries from another. Nutritional screening: No deficits noted. Tuberculosis screening: No symptoms or risk factors identified. Assessment: 17:40 Reassessment: Recollect sent to lab. ph 17:42 General: SEE TRIAGE ASSESSMENT. ph 18:33 Reassessment: No changes from previously documented assessment. Patient and/or family ll1 updated on plan of care and expected duration. Pain level reassessed. Vital Signs: 16:38 BP 118 / 74; Pulse 101; Resp 18; Temp 97.2; Pulse Ox 100% on R/A; ph 17:41 BP 114 / 64; Pulse 98; Resp 18; Pulse Ox 100% on R/A; ph 18:52 BP 100 / 70; Pulse 99; Resp 18; Pulse Ox 100% on R/A; ph ED Course: 15:15 Inserted saline lock: 22 gauge in right antecubital area, using aseptic technique. ph Blood collected. 16:38 Patient arrived in ED. bd 16:38 Johanna Burton RN is Primary Nurse. ph 16:39 Aly Gomez PA is PHCP. jr8 16:39 Андрей Oshea MD is Attending Physician. jr8 16:42 Triage completed. ph 16:42 Arm band placed on Patient placed in an exam room. ph 16:43 Patient has correct armband on for positive identification. Bed in low position. Call ph light in reach. Side rails up X2. Client placed on continuous cardiac and pulse oximetry monitoring. NIBP monitoring applied. 17:42 No provider procedures requiring assistance completed. ph 19:30 IV discontinued, intact, bleeding controlled, No redness/swelling at site. Pressure pf1 dressing applied. 19:55 Primary Nurse role handed off by Johanna Burton, RN rv1 Administered Medications: 18:33 Drug: Lactulose PO 20 grams Volume: 30 ml; Route: PO; ll1 Medication: 16:44 VIS not applicable for this client. ph Outcome: 18:54 Discharge ordered by . christiano 19:30 Discharged to home via wheelchair, with family. pf1 19:30 Condition: improved pf1 19:30 Discharge instructions given to patient, family, Instructed on discharge instructions, follow up and referral plans. Demonstrated understanding of instructions, follow-up care. 20:04 Patient left the ED. pf1 Signatures: Paz Perez Josh, PA PA jroJhanna Dodd, RN RN Amara Blackmon RN RN 1 Meaghan Godoy RN RN pf1 Marlen Nixon [facility]
[2023-04-19 20:34] VITALS: TEMP 97.2; O2SAT 100
[2023-04-19 20:36] VITALS: BP 100/70
--- NOTE | 2023-04-21 07:11 | EKG ---
Test Date: 2023-04-19 Test Time: 16:51:00 Plush Weaver: CHRIS MEASUREMENT RESULTS: Intervals: Rate: 100 IN: 122 QRSD: 88 QT: 352 QTc: 454 [place]: P: 26 IN: 122 QRS: -11 T: 26 INTERPRETIVE STATEMENTS: Normal sinus rhythm Normal ECG No previous ECG available for comparison Electronically Signed On 04-21-23 07:07:03 CDT by Jey Hernandez
== END 2023-04-19 20:04 | disposition home or self-care (01) ==
LOC: ER 16:35
DX: K76.82 Hepatic encephalopathy (principal); K74.60 Unspecified cirrhosis of liver
CPT/HCPCS: 36415; 80053; 82140; 83735; 83880; 84484; 85025; 85610; 93005; 99284